=== PATIENT | female | born 1950 | race Caucasian/White ===

== ENCOUNTER 2021-11-20 23:05 | Inpatient (IN) | payer MEDICARE, OTHER, SELFPAY ==
[2021-11-20 23:07] VITALS: BP 120/77; PULSE 40; RESP 16; TEMP 36.4; O2SAT 90; BMI 24.9
--- NOTE | 2021-11-20 23:28 | EKG12_ITS ---
Test Reason : A-FIB Blood Pressure : / mmHG Vent. Rate : 094 BPM Atrial Rate : 094 BPM P-R Int : 136 ms QRS Dur : 078 ms QT Int : 340 ms P-R-T Axes : 039 006 023 degrees QTc Int : 425 ms Normal sinus rhythm Normal ECG Confirmed by FERNANDO MEJIA, DAVE ([id number]), news video editor TILA DUNCAN ([id number]) on 11/25/2021 11:16:14 AM Referred By: ANDMADELINE Confirmed By:JORGE KING MD
[2021-11-20 23:38] VITALS: BP 114/64; PULSE 121; RESP 21; O2SAT 93
[2021-11-20 23:40] VITALS: O2SAT 93
[2021-11-20 23:59] LABS: Absolute Lymphocyte Count 0.75 X10^3/uL (0.83-4.51); Basophil# 0.02 X10^3/uL; Basophil% 0.2 % (0-1); Eosinophil# 0.01 X10^3/uL; Eosinophils% 0.1 % (0-5); Hematocrit 27.6 % (37-47); Hemoglobin 9.6 g/dL (12.0-15.0); Lymphocyte # 0.75 X10^3/ul (0.83-4.51); Lymphocyte % 7.3 % (19-41); Mean Corp Hgb Conc 34.8 g/dL (32-36); Mean Corpuscular Hgb 29.1 pg (27.0-32.0); Mean Corpuscular Volume 83.6 fL (81-99); Mean Platelet Vol. 9.6 fl (6.2-12.0); Monocyte% 14.5 % (0-10); NRBC Flagged by Analyzer 0 % (0-5); Neutrophil # 7.98 X10^3/uL (2.7-7.7); Neutrophil % 77.3 % (47-70); Platelet Count 318 K/mm3 (150-450); RBC Distribution Width CV 15.3 % (11.6-14.6); RBC Distribution Width SD 46.2 fl (35.1-43.9); White Blood Count 10.3 K/mm3 (4.4-11.0)
[2021-11-21] VITALS (16 sets, daily range): BP systolic 113–134; BP diastolic 50–76; PULSE 76–112; RESP 16–23; TEMP 36.3–36.8; O2SAT 92–96; BMI 25.1
[2021-11-21] MEDS: 0.9% Normal Saline 1,000 ML 999 ML IV (00:09)
[2021-11-21] MEDS: dilTIAZem 25 MG/5 ML Vial 20 MG IV BOLUS (00:12)
[2021-11-21 00:16] LABS: BNP,B-Type NATRIURETIC PEPTIDE 388.5 pg/mL (0-100)
[2021-11-21 00:23] LABS: Anion Gap 11 (5-15); BUN 21 mg/dL (7-18); BUN/Creat Ratio 13.8 RATIO (10-20); Calcium,Total 8.7 mg/dL (8.5-10.1); Chloride 91 mmol/L (98-107); Creatinine, Serum 1.52 mg/dL (0.55-1.02); EST Glomerular Filtration Rate 36 mL/min (>60); Est Glom Filt Rate - Afr Amer 43 mL/min (>60); Estimated Creatinine Clearance 25.62 ml/min; Glucose 120 mg/dL (74-106); Magnesium 1.8 mg/dL (1.6-2.6); Potassium 3.7 mmol/L (3.5-5.1); Sodium Level 130 mmol/L (136-145); Thyroid Stim Hormone (TSH) 1.01 uIU/mL (0.358-3.74); Troponin-I HS 8 pg/mL (3.0-54.0)
[2021-11-21 00:24] LABS: Partial Thromboplast Time 23.5 Seconds (24.1-36.2); Prothrombin Time (Protime)PT. 12.4 SECONDS (11.7-14.9)
--- NOTE | 2021-11-21 00:25 | PCM.HP.STD ---
HPI - General General Date of Admission: 11/21/21 Date of Service: 11/21/21 Chief Complaint: Dyspnea, weight gain, palpitations, orthopnea. HPI Narrative The patient is a 71 y/o F w/ PMHx: CKD stage III unclear subtype with single kidney status, Asthma/COPD w/ Former tobacco use, PAF s/p remote RFA only recently given Rx for coumadin following w/ Cardiology in [place], HTN, HLD, Former tobacco use, Depression and Anxiety, Chronic migraines, GERD who presents to the [facility] ED on 11/21/21 with history of ongoing shortness of breath and palpitations worse over the last 1 to 2 weeks with orthopnea, lower extremity swelling and reported weight gain of 7 pounds over the last week with recent outpatient cardiology initiation of low-dose Lasix regimen however she continued to worsen noting the shortness of breath was worse with any exertion prompting ED evaluation. Patient reports that she knows immediately when she goes into A. fib and this has been intermittent recently going in and out. She also reports midsternal nonradiating chest pressure which occurs primarily with exertion. She reports that she has been following with cardiology in [place] but is highly interested in switching locally as she lives in [place]. Review of prior records were notable for 11/08/2021 hemoglobin 11.3, 11/08/2021 BUN/creatinine 17/1.34 with baseline prior noted 1.1-1.3 primarily, baseline hemoglobin 2017 noted to be 12. Work-up in the ED included T97.6, heart rate initially 40 however patient went into RVR with heart rate in the 1 20-1 30s but again converted upon evaluation, BP 120/77, respiratory rate 16, patient did decrease to 85 to 86% on room air while seated in bed with improvement to 93% on 2 L nasal cannula, CBC with WC 10.3, hemoglobin 9.6, platelets 318 with left shift and lymphopenia, BMP with sodium 130, chloride 91, BUN/creat 21/1.52, glucose 120, magnesium 1.8, troponin 8, BNP 388.5, TSH 1.01, coags pending, rapid COVID antigen pending, CTPA with right perihilar lung cancer with metastatic pleural effusion, local lymph node metastases and extensive liver metastases with postobstructive right lower lobe atelectasis and consolidation with no pulmonary embolus, EKG initially obtained upon presentation with sinus rhythm with no acute evidence of ischemia. In the ED patient ordered normal saline small bolus as well as diltiazem 20 mg IV x1. PFSH Medical History (Updated 11/21/21 @ 02:[address] Cherrie De La Rosa MD) Asthma Atrial fibrillation Chronic anemia Depression Former smoker GERD (gastroesophageal reflux disease) Migraines Home Medications acetaminophen 500 mg tablet 1,000 mg PO Q6H PRN Pain 11/20/21 [History Last Taken Unknown] alprazolam 0.5 mg tablet 0.5 tab PO TID PRN Anxiety 11/20/21 [History Last Taken Unknown] atorvastatin 10 mg tablet 10 tab PO DAILY 11/20/21 [History Last Taken Unknown] bisacodyl 5 mg tablet,delayed release (Dulcolax (bisacodyl)) 5 mg PO QHS PRN Constipation 11/20/21 [History Last Taken Unknown] diltiazem HCl 90 mg tablet 90 tab PO 4X/DAY 11/20/21 [History Last Taken Unknown] furosemide 20 mg tablet 20 tab PO DAILY PRN Edema 11/20/21 [History Last Taken Unknown] senna-docusate sodium tablet 2 tab PO DAILY 11/20/21 [History Last Taken Unknown] sertraline 100 mg tablet 100 tab PO DAILY 11/20/21 [History Last Taken Unknown] cetirizine 10 mg tablet 10 mg PO DAILY 11/21/21 [History Last Taken Unknown] cholecalciferol (vitamin D3) 125 mcg (5,000 unit) tablet 125 mcg PO DAILY 11/21/21 [History Last Taken Unknown] magnesium 250 mg tablet 250 mg PO DAILY 11/21/21 [History Last Taken Unknown] Allergy/AdvReac Type Severity Reaction Status Date / Time albuterol Allergy Other Verified 11/20/21 23:13 [From Proventil HFA] Family History (Updated 11/21/21 @ 00:[address] Cherrie De La Rosa MD) Mother CVA (cerebral vascular accident) Heart disease Hypertension HLD (hyperlipidemia) Father Asthma Hypertension PAF (paroxysmal atrial fibrillation) Surgical History (Updated 11/21/21 @ 00:[address] Cherrie De La Rosa MD) H/O kidney removal History of cardiac radiofrequency ablation Hx of tubal ligation Social History (Updated 11/21/21 @ 00:[address] Cherrie De La Rosa MD) household members: none Smoking Status: Former smoker how long ago did patient quit smoking: Quit 08/30/1983, smoked 1/2 ppd since age 27 until quit. alcohol intake: never substance use type: does not use ROS ROS Narrative Admission Review of Systems: CONSTITUTIONAL: No weight loss, fever, chills, + weakness or fatigue. HEENT: Eyes: No visual loss, blurred vision, double vision or yellow sclerae. Ears, Nose, Throat: No hearing loss, sneezing, congestion, runny nose or sore throat. SKIN: No rash or itching, lesions, wounds. CARDIOVASCULAR: + Edema, palpitations, orthopnea, no chest pain, chest pressure or chest discomfort, palpitations, syncopal events. RESPIRATORY: + shortness of breath, No cough or sputum, wheezing, hemoptysis. GASTROINTESTINAL: No anorexia, nausea, vomiting or diarrhea, abdominal pain, melena, BRBPR. GENITOURINARY: No dysuria, frequency, urgency or retention. NEUROLOGICAL: No headache, dizziness, syncope, paralysis, ataxia, numbness or tingling in the extremities, focal weakness, change in bowel or bladder control, seizure. MUSCULOSKELETAL: + muscle, back pain, joint pain or stiffness. HEMATOLOGIC: + anemia, bleeding or bruising. LYMPHATICS: No enlarged nodes. No history of splenectomy. PSYCHIATRIC: + history of depression or anxiety. ENDOCRINOLOGIC: No reports of sweating, cold or heat intolerance. No polyuria or polydipsia. ALLERGIES: + history of asthma, rhinitis. Vital Signs Vital Signs Vital Signs: 11/20/21 23:07 11/20/21 23:38 11/20/21 23:40 Temperature 97.6 F L Temperature Source Temporal Pulse Rate 40 L 121 H Respiratory Rate 16 21 H Respiratory Effort Short of Breath Labored Respiratory Pattern Tachypnea Blood Pressure 120/77 114/64 Blood Pressure Mean 91 80 Pulse Ox 90 93 Oxygen Delivery Method Room Air Nasal Cannula Nasal Cannula Oxygen Flow Rate (L/min) 2 Weight Weight: 132 lb Body Mass Index (BMI) 24.9 Physical Exam Narrative Physical Examination: General: Awake, alert, oriented x 3 and cooperative, seated upright in the ED bed in no apparent distress, fatigued appearing, notes improved with oxygen supplementation. Skin: Normal color, normal turgor, no icterus, no cyanosis. HEENT: AT/NC, EOMI, PERRLA, mildly dry MM, no carotid bruits or JVD noted. Lungs: Diffusely diminished, greater bases, notes feeling improved with oxygen supplementation, decrease now to 3 L, no evidence of any further distress, no rales or rhonchi, occasional end expiratory wheeze. Heart: Tachycardic, regular rhythm; no gallop, rub audible. Abdomen: Soft, NTTP, ND, distant normal BS, no HSM. Extremities: No cyanosis, no clubbing, no obvious edema to lower extremities, resolved likely with recent Lasix regimen. Neurological: Patient awake, alert, oriented as noted, cognitive function intact; pupils equally reactive to light and accommodation, cranial nerves II-XII grossly normal, moving all 4 extremities, no focal deficits, strength moderately to severely global decreased secondary to acute presentation. Psychiatric: Affect appears fatigued, no acute evidence of depressive or anxiety feelings. Results Lab / Micro Data Result Diagrams: 11/20/21 23:28 11/20/21 23:28 Labs: Laboratory Results - last 24 hr 11/20/21 23:28: WBC 10.3, RBC 3.30 L, Hgb 9.6 L, Hct 27.6 L, MCV 83.6, MCH 29.1, MCHC 34.8, RDW Std Deviation 46.2 H, RDW Coeff of Flaco 15.3 H, Plt Count 318, MPV 9.6, Immature Gran % (Auto) 0.600, Neut % (Auto) 77.3 H, Lymph % (Auto) 7.3 L, [place] % (Auto) 14.5 H, Eos % (Auto) 0.1, Baso % (Auto) 0.2, Absolute Neuts (auto) 8.0 H, Absolute Lymphs (auto) 0.75 L, Nucleated RBC % 0 11/20/21 23:28: Sodium 130 L, Potassium 3.7, Chloride 91 L, Carbon Dioxide 28.0, Anion Gap 11, BUN 21 H, Creatinine 1.52 H, Estim Creat Clear Calc 25.62, Est GFR (MDRD) Af Amer 43 L, Est GFR (MDRD) Non-Af 36 L, BUN/Creatinine Ratio 13.8, Glucose 120 H, Calcium 8.7, Magnesium 1.8, Troponin I High Sens 8, TSH 1.01 11/20/21 23:28: B-Natriuretic Peptide 388.5 H Assessment & Plan Assessment/Plan (1) PAF (paroxysmal atrial fibrillation): (2) Metastatic lung cancer (metastasis from lung to other site): (3) Acute on chronic anemia: PLAN: Plan The patient is a 71 y/o F w/ PMHx: CKD stage III unclear subtype with single kidney status, Asthma/COPD w/ Former tobacco use, PAF s/p remote RFA only recently given Rx for coumadin following w/ Cardiology in [place], HTN, HLD, Former tobacco use, Depression and Anxiety, Chronic migraines, GERD who presents to the [facility] ED on 11/21/21 with history of ongoing shortness of breath and palpitations worse over the last 1 to 2 weeks with orthopnea, lower extremity swelling and reported weight gain of 7 pounds over the last week with recent outpatient cardiology initiation of low-dose Lasix regimen however she continued to worsen noting the shortness of breath was worse with any exertion prompting ED evaluation. #1. Paroxsymal atrial fibrillation with episodes of RVR w/ suspected overload associated with recurrent RVR: Episodes in the ED w/ atrial fibrillation w/ RVR. Patient administered cardizem bolus in ED. Patient in and out of atrial fibrillation while in the ED. Will admit to PCU, maintain on telemetry, obtain cardiac enzyme serial set, mag normal level, obtain ECHO, obtain TSH level. CHADs scoring appropriate for anticoagulation start however given hemoglobin decreased from 11.3-9.6 and reported hemorrhoidal bleeding per patient will hold on initiation but given #3 high risk for VTE in addition to CVA risk with PAF thus once able would start, guaiac pending, trend H&H's. We will continue patient home diltiazem regimen and overlap with dose now however low threshold to utilize IV Cardizem drip if necessary. Given patient preference for transition to [place] cardiology group will request cardiology involvement in AM. #2. Acute on Chronic anemia, Possibly secondary to Hemorrhoidal bleeding versus #3: Most recent hemoglobin prior 11/09/2019 211.3, 2017 level primarily 12, current presentation 11/21/2021 hemoglobin 9.6, denies any melanotic stools but does admit to hemorrhoidal bleeding more pronounced over the last 2 days, will hold off on any anticoagulation as noted above, trend CBC, obtain guaiac and if appropriate request surgery intervention for evaluation of hemorrhoids versus GI. #3. Acute hypoxia with dyspnea sensation secondary to right perihilar lung cancer with metastatic pleural effusion, local lymph node metastases and extensive liver metastases with postobstructive right lower lobe atelectasis and consolidation: Unfortunately extensive presentation, history remotely of smoking is noted, will request pulmonary consultation as well as early oncology involvement. Will maintain on oxygen with wean as tolerated to room air, ATC budesonide, PRN albuterol, given post-obstructive findings to be cautious will maintain on IV Rocephin and Azithromycin but lower suspicion for infection with de-escalation off as able, HOB, IS parameters w/ pending procalcitonin, sputum cultures and urine antigens. #4. Chest Pain, likely primarily secondary to #3: EKG in ED sinus rhythm with no acute evidence of ischemia however patient on telemetry monitoring in the ED has been going in and out of atrial fibrillation, initial cardiac troponin 8. Will place on a monitored bed to assure no acute myocardial infarction with serial cardiac enzymes and EKGs. Magnesium 1.8. FLP in AM. We will continue baby aspirin but hold on Coumadin therapy given #2 with close hemoglobin trending. NG, morphine. #5. Chronic Kidney Disease Stage III, unclear subtype with single kidney status with mild renal insufficiency: Admission BUN/Cr 21/1.52, baseline renal function 1.1-1.3 with most recent 11/08/2021 BUN/creatinine 17/1.34, repeat BMP in AM and if renal function worsens further would hold any nephrotoxic regimen. #6. Chronic constipation: Given hemorrhoidal bleeding we will continue patient aggressive bowel regimen which includes Dulcolax as well as senna docusate regimen. This likely has been contributing. #7. Chronic asthma/COPD with allergic rhinitis: Not on any routine inhalers per current list but on prior review of records patient was on chronic inhalers, given hypoxia will place on ATC budesonide therapy with parent albuterol, encourage head of bed and I-S. We will continue home cetirizine regimen. #8. Anxiety and depression: We will continue patient home sertraline and alprazolam regimen. #9. Hypertension: Continue home regimen including diltiazem, Lasix, PRN hydralazine. #10. Hyperlipidemia: Continue home statin regimen. AM FLP. #11. Former tobacco use: Encourage continued tobacco cessation. #12. GERD: We will place on PPI. #13. DVT prophylaxis: SCDs, hold on chemoprophylaxis given #2. #14. CODE status: Patient does not have healthcare power of deputy prosecuting attorney nor living will set up but notes she is interested. Discussed CODE status at length including difference between FULL code, DNR-CCA and DNR-CC status. Following discussions about the differences in these status, requested DNR CCA-no intubation status given recent CTPA findings. She is also not sure if she will pursue treatments but is interested in discussing these findings and potential further evaluation with oncology and pulmonary medicine. Advanced Care Planning Face to Face Time: 16 minutes. Charges/Coding Visit Charges Inpatient E&M: 90572 Init Hosp L3 Procedures Hospitalists Procedures: 70597 Advncd Care Plan 30 Min
[2021-11-21] MEDS: Ceftriaxone 1 GM/50 ML BAG IV (01:58)
--- NOTE | 2021-11-21 02:45 | ECHOD_ITS ---
Reason For Study: PAF Procedure This was a 2D Doppler, Color Flow transthoracic echocardiogram. Exam performed portable in patient room. Left Ventricle The estimated ejection fraction is 70 %. No evidence for diastolic dysfunction. No regional wall motion abnormalities noted. Right Ventricle Normal RV size. Normal systolic function. Atria The left atrium is mildly enlarged. Normal right atrium. No doppler evidence for ASD. Mitral Valve There is no mitral valve stenosis. No mitral valve insufficiency. Tricuspid Valve There is no tricuspid stenosis. Trivial tricuspid valve insufficiency. Pulmonary artery systolic pressure is 30 mmHg. Aortic Valve Trisinus/trileaflet aortic valve. There is no aortic stenosis. No aortic valve insufficiency. Pulmonic Valve There is no pulmonic valvular stenosis. No pulmonic valve insufficiency. Great Vessels Normal aortic root. Pericardium/Pleural No pericardial effusion. MMode/2D Measurements & Calculations LVIDd: 4.6 cm IVSd: 0.73 cm Ao root diam: 3.2 cm LVIDs: 2.8 cm LVPWd: 0.90 cm RVDd: 3.7 cm FS: 39.5 % LAV(MOD-bp): 58.2 ml LA A4 area: 13.9 cm2 LA dimension(2D): 3.5 cm LAV(MOD-bp) Indexed: 36.6 ml/m2 LAV(MOD-sp2): 54.8 ml LAV(MOD-sp4): 40.7 ml Time Measurements MV dec time: 0.27 sec Doppler Measurements & Calculations MV E max dagoberto: 84.6 cm/sec Lat Peak E' Dagoberto: 13.5 cm/sec Med Peak E' Dagoberto: 12.7 cm/sec MV A max dagoberto: 96.0 cm/sec E/E' lat: 6.3 E/E' med: 6.7 MV E/A: 0.88 MV dec slope: 282.5 cm/sec2 Ao V2 max: 121.6 cm/sec LV V1 max: 90.7 cm/sec Ao max P.9 mmHg LV V1 max P.3 mmHg Ao V2 mean: 91.8 cm/sec LV V1 mean P.2 mmHg Ao mean P.7 mmHg LV V1 mean: 70.7 cm/sec Ao V2 VTI: 26.0 cm LV V1 VTI: 21.5 cm PA V2 max: 89.8 cm/sec TR max dagoberto: 260.5 cm/sec TR max P.1 mmHg ECHO/Echo Complete Interpretation Summary The estimated ejection fraction is 70 %. No evidence for diastolic dysfunction. The left atrium is mildly enlarged. Ordering Physician: White^Cherrie^L^.^ Referring Physician: Conner Daley Performed By: Thelma Cross, FABIAN, RVT
[2021-11-21] MEDS: ALPRAZolam 0.5 MG Tablet PO ×2 (03:35→16:00)
[2021-11-21] MEDS: Temazepam 15 MG Capsule PO (03:35)
[2021-11-21 03:37] LABS: Absolute Lymphocyte Count 0.66 X10^3/uL (0.83-4.51); Absolute Neutrophil Count 7.5 X10^3/uL (2.0-7.7); Basophil# 0.01 X10^3/uL; Basophil% 0.1 % (0-1); Eosinophil# 0.02 X10^3/uL; Eosinophils% 0.2 % (0-5); Hematocrit 28.7 % (37-47); Hemoglobin 9.5 g/dL (12.0-15.0); Lymphocyte # 0.66 X10^3/ul (0.83-4.51); Lymphocyte % 6.8 % (19-41); Mean Corp Hgb Conc 33.1 g/dL (32-36); Mean Corpuscular Hgb 28.1 pg (27.0-32.0); Mean Corpuscular Volume 84.9 fL (81-99); Mean Platelet Vol. 9.1 fl (6.2-12.0); Monocyte# 1.39 X10^3/uL; Monocyte% 14.4 % (0-10); NRBC Flagged by Analyzer 0 % (0-5); Neutrophil # 7.52 X10^3/uL (2.7-7.7); Neutrophil % 78.1 % (47-70); Platelet Count 288 K/mm3 (150-450); RBC Distribution Width CV 15.4 % (11.6-14.6); RBC Distribution Width SD 47.6 fl (35.1-43.9); Red Blood Count 3.38 M/mm3 (4.2-5.4); White Blood Count 9.6 K/mm3 (4.4-11.0)
[2021-11-21 03:56] LABS: Troponin-I HS 8 pg/mL (3.0-54.0)
--- NOTE | 2021-11-21 05:52 | EX.ED.DYSGE1 ---
HPI History of Present Illness Chief Complaint: Shortness of Breath Narrative Narrative: Patient is a 71-year-old female with past medical history of paroxysmal atrial fibrillation. She states that she is also had a DVT in her leg in the past. She reports that she has been having increased shortness of breath as well as weakness/fatigue and noted that she became hypoxic with a pulse ox trending down into the 80s today at home. She denies any history of smoking or lung disorder or need for supplemental oxygen. She states that she was on a blood thinner when she had her DVT but that its been years ago. With her paroxysmal A. fib the only medication she takes is aspirin for anticoagulation and tries to control her rhythm and rate with Cardizem. The patient reports that she has been taking her medications as directed but has had to stop the aspirin as she is scheduled for cardiac ablation in the next week. She reports that with her increased shortness of breath and the hypoxic event that occurred today when she went to go outside she was concerned that there is more going on than atrial fibrillation and she comes in for evaluation [facility] Medical History (Updated 11/21/21 @ 05:[address] Gabriel Mark, ) Asthma Atrial fibrillation Chronic anemia Depression Former smoker GERD (gastroesophageal reflux disease) Migraines Home Medications acetaminophen 500 mg tablet 1,000 mg PO Q6H PRN Pain 11/20/21 [History Last Taken Unknown] alprazolam 0.5 mg tablet 0.5 tab PO TID PRN Anxiety 11/20/21 [History Last Taken Unknown] atorvastatin 10 mg tablet 10 tab PO DAILY 11/20/21 [History Last Taken Unknown] bisacodyl 5 mg tablet,delayed release (Dulcolax (bisacodyl)) 5 mg PO QHS PRN Constipation 11/20/21 [History Last Taken Unknown] diltiazem HCl 90 mg tablet 90 tab PO 4X/DAY 11/20/21 [History Last Taken Unknown] furosemide 20 mg tablet 20 tab PO DAILY PRN Edema 11/20/21 [History Last Taken Unknown] senna-docusate sodium tablet 2 tab PO DAILY 11/20/21 [History Last Taken Unknown] sertraline 100 mg tablet 100 tab PO DAILY 11/20/21 [History Last Taken Unknown] cetirizine 10 mg tablet 10 mg PO DAILY 11/21/21 [History Last Taken Unknown] cholecalciferol (vitamin D3) 125 mcg (5,000 unit) tablet 125 mcg PO DAILY 11/21/21 [History Last Taken Unknown] magnesium 250 mg tablet 250 mg PO DAILY 11/21/21 [History Last Taken Unknown] Allergy/AdvReac Type Severity Reaction Status Date / Time albuterol Allergy Other Verified 11/20/21 23:13 [From Proventil HFA] Family History (Updated 11/21/21 @ 00:[address] Cherrie De La Rosa MD) Mother CVA (cerebral vascular accident) Heart disease Hypertension HLD (hyperlipidemia) Father Asthma Hypertension PAF (paroxysmal atrial fibrillation) Surgical History (Updated 11/21/21 @ 00:[address] Cherrie De La Rosa MD) H/O kidney removal History of cardiac radiofrequency ablation Hx of tubal ligation Social History (Updated 11/21/21 @ 00:[address] Cherrie De La Rosa MD) household members: none Smoking Status: Former smoker how long ago did patient quit smoking: Quit 08/30/1983, smoked 1/2 ppd since age 27 until quit. alcohol intake: never substance use type: does not use ROS ROS ED Constitutional Constitutional ED: Denies chills or fever(s) ENT ENT ED: Denies sore throat Cardiovascular Cardiovascular: Reports palpitations and racing heartbeat; Denies chest pain Respiratory/Chest Respiratory/Chest: Reports dyspnea; Denies cough Gastrointestinal Gastrointestinal: Denies abdominal pain, diarrhea, nausea or vomiting Genitourinary Genitourinary ED: Denies dysuria Musculoskeletal Musculoskeletal: Denies myalgias Integumentary Denies rash Neurologic Neurologic: Reports weakness; Denies headache(s) Hematologic/Lymphatic Hematologic/Lymphatic: Denies easy bleeding or easy bruising EXAM Physical Exam Const Vital Signs: 11/20/21 23:07 11/20/21 23:38 11/20/21 23:40 Temperature 97.6 F L Temperature Source Temporal Pulse Rate 40 L 121 H Respiratory Rate 16 21 H Respiratory Effort Short of Breath Labored Respiratory Pattern Tachypnea Blood Pressure 120/77 114/64 Blood Pressure Mean 91 80 Pulse Ox 90 93 Oxygen Delivery Method Room Air Nasal Cannula Nasal Cannula Oxygen Flow Rate (L/min) 2 Positive well nourished and well developed General Appearance ED: well developed HEENT Reports moist mucous membranes HEENT Narrative: No tongue or lip swelling no oral lesions no airway edema or compromise Eyes PERRL and EOMs intact bilaterally Neck supple and no JVD Chest Wall palpation of chest normal Resp normal respiratory effort Resp Narrative: Breath sounds are diminished throughout but overall clear to auscultation without nasal flaring retractions tachypnea or accessory muscle use Cardio Rate: other Other Details: Irregularly irregular rhythm with tachycardic rate consistent with her history of paroxysmal atrial fibrillation GI normal to inspection, nondistended, normoactive bowel sounds, non-tender and non-distended GI Narrative: No voluntary guarding or rigidity no pulsatile mass Auscultation: normoactive bowel sounds Palpation: soft Extremity Extremity Narrative: Trace pitting edema to the bilateral lower extremities that is equal and symmetric with negative Homans' sign Neuro oriented x3 and CN's II-XII intact bilaterally Sensorium / Orientation: alert Psych mental status grossly normal Skin no rashes or lesions noted MDM MDM MDM Narrative Medical decision making narrative: Patient presented to the ER satting approximately 88% on room air. Her heart rhythm was consistently changing between A. fib with RVR as well as sinus rhythm. With her history of A. fib and no true anticoagulation and now shortness of breath there is concern she may have developed a pulmonary embolus. Secondary to this basic blood work and a CT scan were ordered. Labs showed chronic findings without acute changes. Her CT scan however showed metastatic cancer with obstructive atelectasis and consolidation. She does not have a fever or white count and therefore I feel the consolidation in the lungs is related to the atelectasis and compressing cancer. However to order ensure we are not missing infection patient will be started on Rocephin and Zithromax. At this time she does not have signs of cardiac damage or PE but with the metastatic cancer and hypoxia she needs to remain in the hospital for further treatment of these findings and need for supplemental oxygen Lab Data Attestation: I reviewed the patient's lab results. Labs: Laboratory Results - last 24 hr 11/20/21 11/20/21 11/20/21 23:28 23:28 23:28 WBC 10.3 RBC 3.30 L Hgb 9.6 L Hct 27.6 L MCV 83.6 MCH 29.1 MCHC 34.8 RDW Std Deviation 46.2 H RDW Coeff of Flaco 15.3 H Plt Count 318 MPV 9.6 Immature Gran % (Auto) 0.600 Neut % (Auto) 77.3 H Lymph % (Auto) 7.3 L [place] % (Auto) 14.5 H Eos % (Auto) 0.1 Baso % (Auto) 0.2 Absolute Neuts (auto) 8.0 H Absolute Lymphs (auto) 0.75 L Nucleated RBC % 0 PT 12.4 INR 1.0 APTT 23.5 L Sodium 130 L Potassium 3.7 Chloride 91 L Carbon Dioxide 28.0 Anion Gap 11 BUN 21 H Creatinine 1.52 H Estim Creat Clear Calc 25.62 Est GFR (MDRD) Af Amer 43 L Est GFR (MDRD) Non-Af 36 L BUN/Creatinine Ratio 13.8 Glucose 120 H Calcium 8.7 Magnesium 1.8 Troponin I High Sens 8 B-Natriuretic Peptide TSH 1.01 11/20/21 23:28 WBC RBC Hgb Hct MCV MCH MCHC RDW Std Deviation RDW Coeff of Flcao Plt Count MPV Immature Gran % (Auto) Neut % (Auto) Lymph % (Auto) [place] % (Auto) Eos % (Auto) Baso % (Auto) Absolute Neuts (auto) Absolute Lymphs (auto) Nucleated RBC % PT INR APTT Sodium Potassium Chloride Carbon Dioxide Anion Gap BUN Creatinine Estim Creat Clear Calc Est GFR (MDRD) Af Amer Est GFR (MDRD) Non-Af BUN/Creatinine Ratio Glucose Calcium Magnesium Troponin I High Sens B-Natriuretic Peptide 388.5 H TSH Discharge Plan Dx/Rx/DC Orders Clinical Impression: PAF (paroxysmal atrial fibrillation), Metastatic lung cancer (metastasis from lung to other site), Acute on chronic anemia, Hypoxia Disposition Disposition: Acute Care [facility]
[2021-11-21] MEDS: dilTIAZem 30 MG Tablet 90 MG PO ×3 (06:06→17:45)
[2021-11-21] MEDS: Acetaminophen 325 MG Tablet 650 MG PO (06:08)
[2021-11-21] MEDS: Budesonide Respules 0.5 MG/2 ML AMPUL.NEB. INHALATION ×2 (06:50→19:22)
[2021-11-21 07:29] LABS: ALB/GLOB Ratio 0.8 RATIO (0.9-2.4); AST(SGOT) 144 U/L (15-37); Alanine Aminotransfer ALT/SGPT 101 U/L (13-56); Albumin, Serum 2.7 g/dL (3.2-5.0); Alkaline Phosphatase 262 U/L (45-117); Anion Gap 9 (5-15); BUN 20 mg/dL (7-18); BUN/Creat Ratio 15.2 RATIO (10-20); Calcium,Total 8.2 mg/dL (8.5-10.1); Chloride 92 mmol/L (98-107); Creatinine, Serum 1.32 mg/dL (0.55-1.02); EST Glomerular Filtration Rate 42 mL/min (>60); Est Glom Filt Rate - Afr Amer 51 mL/min (>60); Globulin 3.2 g/dL (2.2-4.2); Glucose 108 mg/dL (74-106); Potassium 3.7 mmol/L (3.5-5.1); Protein, Total 5.9 g/dL (6.4-8.2); Sodium Level 129 mmol/L (136-145); Thyroid Stim Hormone (TSH) 0.59 uIU/mL (0.358-3.74); Troponin-I HS 9 pg/mL (3.0-54.0)
[2021-11-21] MEDS: Magnesium Chloride 64 MG Delay Rel.Tablet PO (09:14)
[2021-11-21] MEDS: Sertraline 100 MG Tablet PO (09:14)
[2021-11-21] MEDS: Cholecalciferol (Vit D3) 125 MCG CAPSULE (5,000 UNITS) PO (09:14)
[2021-11-21] MEDS: Aspirin 81 MG TAB.CHEW PO (09:14)
[2021-11-21] MEDS: Loratadine 10 MG Tablet PO (09:14)
[2021-11-21] MEDS: Pantoprazole Sodium 40 MG Tablet PO ×2 (09:14→22:10)
--- NOTE | 2021-11-21 10:24 | CON.PCM.CC_ITS ---
Assessment & Plan Assessment/Plan (1) Lung mass: PLAN: Plan RECOMMENDATIONS: 1. Continue antimicrobials. 2. Wean supplemental oxygen for saturations greater than 90%. 3. Obtain CT abdomen/pelvis to evaluate extent of intra-abdominal metastatic disease. 4. Consider CT biopsy of one of the metastatic lesions. 5. Encourage incentive spirometer use and mobilize patient as tolerated. IMPRESSIONS: 1. Right perihilar lung mass with probable postobstructive pneumonia The patient's CT chest demonstrated a right hilar lung mass which appears to be causing narrowing/occlusion of the right middle and lower lobe with what is lik con a component of postobstructive pneumonia and atelectasis. In addition, multiple hypoattenuating lesions were noted throughout the liver, concerning for metastatic disease. At this time, I would recommend that we obtain a dedicated CT abdomen/pelvis to evaluate the extent of potential intra-abdominal metastatic disease. Depending on the results of CT imaging, arrangements can be made with radiology to pursue CT-guided biopsy. It would likely be reasonable to go after the liver lesions as this would not only establish a diagnosis but a stage for the patient as well. In the interim, continue to wean supplemental oxygen as tolerated for saturations at or above 90%. Continue antimicrobials as well. This note was generated with [employer] dictation software. It may contain incorrect words, spelling, and punctuation that were not noted in checking the note before signing. HPI Consult Data Date of Consult: 11/22/21 HPI Narrative Reason for Consultation: Lung mass HPI Narrative: The patient is a 71-year-old female, with a history as outlined below, who presented to the emergency department on November 21 with progressive shortness of breath and hypoxemia. The patient does not regularly utilize supplemental oxyge n at her baseline. She denied a history of venous thromboembolic disease. She has a very remote smoking history, having quit completely 38 years ago. Her weight and appetite has been relatively stable. On presentation to the emergency department, the patient was noted to be afebrile but was noted bili tachycardic and tachypneic. She was maintaining appropriate oxygen saturations on 2 L/min via nasal cannula. Initial laboratory evaluation revealed no evidence of a leukocytosis. Chemistry profile was notable for a sodium of 130, chloride of 91 and creatinine of 1.52. BNP was elevated at 388 with a procalcitonin of 19.6. A CTA chest was obtained which demonstrated no evidence of pulmonary embolism. Bulky right-sided hilar adenopathy along with a large 8 cm perihilar lung mass was noted, which also appear to be obstructing the right lower lobe bronchus. Incidental note was made of extensive liver metastatic lesions. Surface echocardiogram completed today demonstrated an ejection fraction of 70%. Pulmonary artery systolic pressure was estimated to be 30 mmHg. [facility] Medical History (Updated 11/21/21 @ 17:[address] Marcello Carter MD) Asthma Atrial fibrillation Chronic anemia Depression Former smoker GERD (gastroesophageal reflux disease) Migraines Home Medications acetaminophen 500 mg tablet 1,000 mg PO Q6H PRN Pain 11/20/21 [History Last Taken Unknown] alprazolam 0.5 mg tablet 0.5 tab PO TID PRN Anxiety 11/20/21 [History Last Taken Unknown] atorvastatin 10 mg tablet 10 tab PO DAILY 11/20/21 [History Last Taken Unknown] bisacodyl 5 mg tablet,delayed release (Dulcolax (bisacodyl)) 5 mg PO QHS PRN Constipation 11/20/21 [History Last Taken Unknown] diltiazem HCl 90 mg tablet 90 tab PO 4X/DAY 11/20/21 [History Last Taken Unknown] furosemide 20 mg tablet 20 tab PO DAILY PRN Edema 11/20/21 [History Last Taken Unknown] senna-docusate sodium tablet 2 tab PO DAILY 11/20/21 [History Last Taken Unknown] sertraline 100 mg tablet 100 tab PO DAILY 11/20/21 [History Last Taken Unknown] cetirizine 10 mg tablet 10 mg PO DAILY 11/21/21 [History Last Taken Unknown] cholecalciferol (vitamin D3) 125 mcg (5,000 unit) tablet 125 mcg PO DAILY 11/21/21 [History Last Taken Unknown] magnesium 250 mg tablet 250 mg PO DAILY 11/21/21 [History Last Taken Unknown] Allergy/AdvReac Type Severity Reaction Status Date / Time albuterol Allergy Other Verified 11/20/21 23:13 [[facility] HFA] Family History (Updated 11/21/21 @ 00:[address] Cherrie De La Rosa MD) Mother CVA (cerebral vascular accident) Heart disease Hypertension HLD (hyperlipidemia) Father Asthma Hypertension PAF (paroxysmal atrial fibrillation) Surgical History (Updated 11/21/21 @ 00:[address] Cherrie De La Rosa MD) H/O kidney removal History of cardiac radiofrequency ablation Hx of tubal ligation Social History (Updated 11/21/21 @ 00:[address] Cherrie De La Rosa MD) household members: none Smoking Status: Former smoker how long ago did patient quit smoking: Quit 08/30/1983, smoked 1/2 ppd since age 27 until quit. alcohol intake: never substance use type: does not use ROS Constitutional Constitutional: Reports fatigue; Denies body ache(s), chills or fever(s) Eyes Eyes: Denies blurry vision or change in vision ENT HEENT: Denies dizziness, dysphagia, epistaxis or headache(s) Cardiovascular Cardiovascular: Reports dyspnea; Denies chest pain, claudication or dizziness Respiratory/Chest Respiratory/Chest: Reports dyspnea Gastrointestinal Gastrointestinal: Denies abdominal pain, diarrhea, nausea or vomiting Genitourinary Genitourinary: Denies difficulty urinating Musculoskeletal Musculoskeletal: Denies arthralgias or back pain Integumentary Integumentary: Denies lesions, rash or skin ulcer Neurologic Neurologic: Denies abnormal gait or abnormal speech Psychiatric Psychiatric: Denies anxiety Endocrine Endocrinology: Reports fatigue Hematologic/Lymphatic Hematologic/Lymphatic: Denies easy bleeding or easy bruising Physical Exam Const alert and no apparent distress General Appearance: cooperative HEENT normocephalic, head/scalp atraumatic and moist oral mucous membranes Eyes PERRL, EOMs intact bilaterally and conjunctivae normal Neck supple General: trachea midline Chest inspection of chest normal Resp normal respiratory effort Auscultation: diminished lung sounds Cardio regular rate and regular rhythm GI normal to inspection, nondistended, normoactive bowel sounds Extremity no clubbing, cyanosis or edema Skin no rashes or lesions noted Neuro oriented x3, CN's II-XII intact bilaterally and moves all extremities Psych cooperative and affect normal Lab / Micro Data Result Diagrams: 11/22/21 06:30 11/22/21 06:30 Labs: Laboratory Results - last 24 hr 11/20/21 23:28: WBC 10.3, RBC 3.30 L, Hgb 9.6 L, Hct 27.6 L, MCV 83.6, MCH 29.1, MCHC 34.8, RDW Std Deviation 46.2 H, RDW Coeff of Flaco 15.3 H, Plt Count 318, MPV 9.6, Immature Gran % (Auto) 0.600, Neut % (Auto) 77.3 H, Lymph % (Auto) 7.3 L, [place] % (Auto) 14.5 H, Eos % (Auto) 0.1, Baso % (Auto) 0.2, Absolute Neuts (auto) 8.0 H, Absolute Lymphs (auto) 0.75 L, Nucleated RBC % 0 11/20/21 23:28: PT 12.4, INR 1.0, APTT 23.5 L 11/20/21 23:28: Sodium 130 L, Potassium 3.7, Chloride 91 L, Carbon Dioxide 28.0, Anion Gap 11, BUN 21 H, Creatinine 1.52 H, Estim Creat Clear Calc 25.62, Est GFR (MDRD) Af Amer 43 L, Est GFR (MDRD) Non-Af 36 L, BUN/Creatinine Ratio 13.8, Glucose 120 H, Calcium 8.7, Magnesium 1.8, Troponin I High Sens 8, TSH 1.01 11/20/21 23:28: B-Natriuretic Peptide 388.5 H 11/21/21 01:46: Procalcitonin 19.60 H 11/21/21 03:30: WBC 9.6, RBC 3.38 L, Hgb 9.5 L, Hct 28.7 L, MCV 84.9, MCH 28.1, MCHC 33.1, RDW Std Deviation 47.6 H, RDW Coeff of Flaco 15.4 H, Plt Count 288, MPV 9.1, Immature Gran % (Auto) 0.400, Neut % (Auto) 78.1 H, Lymph % (Auto) 6.8 L, [place] % (Auto) 14.4 H, Eos % (Auto) 0.2, Baso % (Auto) 0.1, Absolute Neuts (auto) 7.5, Absolute Lymphs (auto) 0.66 L, Nucleated RBC % 0 11/21/21 03:30: Troponin I High Sens 8 11/21/21 06:49: Sodium 129 L, Potassium 3.7, Chloride 92 L, Carbon Dioxide 28.0, Anion Gap 9, BUN 20 H, Creatinine 1.32 H, Estim Creat Clear Calc 29.50, Est GFR (MDRD) Af Amer 51 L, Est GFR (MDRD) Non-Af 42 L, BUN/Creatinine Ratio 15.2, Glucose 108 H, Calcium 8.2 L, Total Bilirubin 0.30, AST 144 H, ALT 101 H, Alkaline Phosphatase 262 H, Troponin I High Sens 9, Total Protein 5.9 L, Albumin 2.7 L, Globulin 3.2, Albumin/Globulin Ratio 0.8 L, TSH 0.59 Micro: Microbiology 11/21/21 04:45 Urine, Clean Catch Legionella Antigen - Final 11/20/21 20:10 Nasal Secretion SARS-CoV-2 & FLU Antigen (Rapid) - Final Radiology Impression Chest CTA 11/21/21 23:50 IMPRESSION: 1. Right perihilar lung cancer with metastatic pleural effusion, local lymph node metastases, and extensive liver metastases. There is postobstructive right lower lobe atelectasis and consolidation. 2. No finding of pulmonary embolus. Electronically Signed: Anselmo Langford MD at 1:05 EDT , Charges/Coding Visit Charges Inpatient E&M: 21460 Init Hosp L3
[2021-11-21] MEDS: oxyCODONE 5 MG Tablet PO ×2 (10:46→20:16)
--- NOTE | 2021-11-21 10:50 | CASEMGMT ---
RN MARLEY Face to Face with patient for initial transition planning/care coordination assessment. RN CM introduced self and role at [facility]. Patient lying in bed, alert and oriented. Patient willing to participate in assessment and is able to answer all questions appropriately. Care providers, pharmacy, and demographics verified. Patient wishes to discharge home, denies need for home health at this time. Patient states she has no further needs or concerns at this time. CM to follow for discharge planning needs that may arise. PCP: Thuy Specialists: none Preferred Pharmacy: [facility] [place] Insurance: [employer] Prescription Benefit: yes Living Will/HPOA: none, patient requesting to complete, SW updated LNOK: DIL, friend Living Arrangements: Patient lives alone in a first floor apartment in senior independent living with no steps to enter. Patient state she is independent at home. Transportation: self, friend [place] DME/HHC: Patient states she has grab bars, nebulizer, pulse ox and call lights at home. Patient denies previous HHC. Will monitor patient for home oxygen at discharge. No preferences for DME. Disposition Plan: Patient to discharge home with family support and follow-up plans in place. Edna GEORGE, RN, CM
--- NOTE | 2021-11-21 12:05 | CT_ITS ---
STUDY: CT ABDOMEN AND PELVIS WITH CONTRAST REASON FOR EXAM: Female, 71 years old. Eval for metastatic disease RADIATION DOSAGE (If Supplied By Facility): CTDIvol = ( 12.45 ) mGy, DLP = ( 679.87 ) mGycm TECHNIQUE: Transaxial images were obtained from the dome of the diaphragm to the symphysis pubis with oral contrast. Oral and IV Gastrografin and 75mL Isovue-300 was administered. Sagittal and coronal images were reconstructed. Individualized dose optimization techniques were used for this CT. COMPARISON: None. FINDINGS: Dense consolidation of the right lower lobe. Known right hilar mass with postobstructive atelectasis and consolidation. Tiny bilateral pleural effusions. Coronary artery calcification. Diffuse hepatomegaly. Multiple scattered hypodense nodules in both lobes of the liver in keeping with diffuse metastatic deposits. Tiny densities are seen within the gallbladder lumen suggestive of either sludge or tiny gallstones. Normal spleen. Normal pancreas. Normal bilateral adrenal glands. Normal right kidney. Normal left kidney. There is a small hiatal hernia. Normal small intestine. There are multiple colonic diverticula consistent with diverticulosis. The appendix is visualized and appears normal. There is scattered atherosclerotic calcification of the abdominal aorta, without a demonstrated aneurysm. Normal inferior vena cava. Normal retroperitoneum. Normal urinary bladder. The left ovary measures 3.2 cm x 2.4 cm. Normal abdominal wall. Disc space narrowing and disc degeneration at the L5-S1 level. There is a 1.6 cm lucency in the posterior superior aspect of the L2 vertebrae. CT/Abdomen/Pelvis WITH Contrast IMPRESSION: Diffuse hepatomegaly with multiple hypodense solid nodules scattered throughout both lobes of the liver in keeping with diffuse metastasis. Possible small gallstones. Dense consolidation of the right lower lobe with tiny bilateral pleural effusions. Electronically Signed: Rajesh Salinas MD at 15:18 EDT ,
--- NOTE | 2021-11-21 13:30 | PN.HOSP_ITS ---
Documented by User: Tata Fuentes [employer] CELL CLEANER, [employer]ANER-C 11/21/21 13:42 Subjective Subjective Patient seen and examined. Reports headache. Intermittent nonproductive/dry cough. Denies fever, chills. Continues to have dyspnea, worse with movement. Objective Data Objective Data Vital Signs: Vital Signs Temp Pulse Resp BP Pulse Ox O2 Del Method O2 Flow Rate 97.9 F 98 18 113/50 L 92 Nasal Cannula 4 11/21/21 12:01 11/21/21 12:28 11/21/21 12:01 11/21/21 12:01 11/21/21 12:11/21/21 12:01 11/21/21 12:01 Oxygen Flow Rate (L/min) 4 Oxygen Delivery Method Nasal Cannula Weight: 133 lb 2.547 oz Body Mass Index (BMI) 25.1 Intake & Output: Intake and Output for Last 24 Hours 11/19/21 11/20/21 11/21/21 23:59 23:59 23:59 Intake Total 1305 / 1305 Balance 1305 / 1305 Lab / Micro Data Result Diagrams: 11/21/21 03:30 11/21/21 06:49 Labs: Laboratory Results - last 24 hr 11/20/21 23:28: WBC 10.3, RBC 3.30 L, Hgb 9.6 L, Hct 27.6 L, MCV 83.6, MCH 29.1, MCHC 34.8, RDW Std Deviation 46.2 H, RDW Coeff of Flaco 15.3 H, Plt Count 318, MPV 9.6, Immature Gran % (Auto) 0.600, Neut % (Auto) 77.3 H, Lymph % (Auto) 7.3 L, [place] % (Auto) 14.5 H, Eos % (Auto) 0.1, Baso % (Auto) 0.2, Absolute Neuts (auto) 8.0 H, Absolute Lymphs (auto) 0.75 L, Nucleated RBC % 0 11/20/21 23:28: PT 12.4, INR 1.0, APTT 23.5 L 11/20/21 23:28: Sodium 130 L, Potassium 3.7, Chloride 91 L, Carbon Dioxide 28.0, Anion Gap 11, BUN 21 H, Creatinine 1.52 H, Estim Creat Clear Calc 25.62, Est GFR (MDRD) Af Amer 43 L, Est GFR (MDRD) Non-Af 36 L, BUN/Creatinine Ratio 13.8, Glucose 120 H, Calcium 8.7, Magnesium 1.8, Troponin I High Sens 8, TSH 1.01 11/20/21 23:28: B-Natriuretic Peptide 388.5 H 11/21/21 01:46: Procalcitonin 19.60 H 11/21/21 03:30: WBC 9.6, RBC 3.38 L, Hgb 9.5 L, Hct 28.7 L, MCV 84.9, MCH 28.1, MCHC 33.1, RDW Std Deviation 47.6 H, RDW Coeff of Flaco 15.4 H, Plt Count 288, MPV 9.1, Immature Gran % (Auto) 0.400, Neut % (Auto) 78.1 H, Lymph % (Auto) 6.8 L, [place] % (Auto) 14.4 H, Eos % (Auto) 0.2, Baso % (Auto) 0.1, Absolute Neuts (auto) 7.5, Absolute Lymphs (auto) 0.66 L, Nucleated RBC % 0 11/21/21 03:30: Troponin I High Sens 8 11/21/21 06:49: Sodium 129 L, Potassium 3.7, Chloride 92 L, Carbon Dioxide 28.0, Anion Gap 9, BUN 20 H, Creatinine 1.32 H, Estim Creat Clear Calc 29.50, Est GFR (MDRD) Af Amer 51 L, Est GFR (MDRD) Non-Af 42 L, BUN/Creatinine Ratio 15.2, Glucose 108 H, Calcium 8.2 L, Total Bilirubin 0.30, AST 144 H, ALT 101 H, Alkaline Phosphatase 262 H, Troponin I High Sens 9, Total Protein 5.9 L, Albumin 2.7 L, Globulin 3.2, Albumin/Globulin Ratio 0.8 L, TSH 0.59 Micro: Microbiology 11/21/21 04:45 Urine, Clean Catch Legionella Antigen - Final 11/20/21 20:10 Nasal Secretion SARS-CoV-2 & FLU Antigen (Rapid) - Final Radiography Diagnostic Testing: Radiology Impression Echocardiogram 11/21/21 02:45 Interpretation Summary The estimated ejection fraction is 70 %. No evidence for diastolic dysfunction. The left atrium is mildly enlarged. Ordering Physician: Claudia^ Referring Physician: Conner Daley Performed By: Thelma Cross, RDCS, RVT Chest CTA 11/21/21 23:50 IMPRESSION: 1. Right perihilar lung cancer with metastatic pleural effusion, local lymph node metastases, and extensive liver metastases. There is postobstructive right lower lobe atelectasis and consolidation. 2. No finding of pulmonary embolus. Electronically Signed: Anselmo Langford MD at 1:05 EDT , Physical Exam Const alert and oriented x3 HEENT normocephalic and moist oral mucous membranes Eyes PERRL, EOMs intact bilaterally and conjunctivae normal Neck no lymphadenopathy Resp clear to auscultation bilaterally Auscultation: diminished lung sounds Cardio regular rate, regular rhythm and no murmurs Peripheral Pulses: pulses 2+ throughout GI normal to inspection, nondistended, normoactive bowel sounds, non-tender and non-distended Extremity normal to inspection Skin no rashes or lesions noted Lesions: no lesions Rashes: no rashes Trauma: no lacerations or abrasions Neuro CN's II-XII intact bilaterally, no focal motor deficits, no sensory deficits noted and deep tendon reflexes 2+ bilaterally Psych mental status grossly normal and affect normal Assessment & Plan Assessment/Plan (1) Hypoxia: PLAN: Plan 1. Acute hypoxia, shortness of breath secondary to right perihilar lung mass with extensive liver mets and right lower lobe postobstructive consolidation- continue IV Rocephin and IV azithromycin empirically. Pulmonary medicine and oncology consulted. CT of abdomen and pelvis ordered. Pending imaging, consi jacob possible liver biopsy. New diagnosis cancer/mass. 2. Paroxysmal atrial fibrillation with RVR-patient received Cardizem bolus in ED. Converted to sinus rhythm this morning. Echocardiogram demonstrates an EF of 70%. Continue oral Cardizem. Cardiology consulted. Hold off on anticoagulation given plans for thoracentesis/biopsy as well as anemia. 3. Acute on chronic anemia-patient reports hemorrhoidal bleeding. Continue PPI. Trend CBC. Hold off on anticoagulation. 4. Chronic kidney disease stage IIIb-suspect at baseline. Trend BMP. 5. Chronic asthma/COPD-as needed albuterol aerosol. 6. Chronic constipation-continue bowel regimen. 7. Hypertension-stable, continue current regimen. 8. Hyperlipidemia-continue statin. 9. Former tobacco use-encouraged cessation. 10. GERD-continue PPI. 11. Anxiety/depression-on as needed Xanax, sertraline. DVT prophylaxis-SCDs This patient was seen by JUANITO Winters under the supervision of Dr. Grier. Time spent examining patient, reviewing data and subsequent management of care: 16 minutes Documented by User: Dr. Maricel Grier MD 11/21/21 14:19 Objective Data Lab / Micro Data Result Diagrams: 11/21/21 03:30 11/21/21 06:49 Assessment & Plan Assessment/Plan (1) Hypoxia: Charges/Coding Addendum Addendum: Patient seen by Tata SOLOMON under my supervision Patient seen and examined. She denied any palpitations, dizziness,nausea or vo miting. She is quite concerned and shocked at the finding of lung cancer with malignant pleural effusion. Review of systems is otherwise negative. O/E: Const alert, oriented x3 and no apparent distress General Appearance: cooperative HEENT normocephalic, head/scalp atraumatic, hearing grossly normal bilaterally and moist oral mucous membranes Eyes PERRL, EOMs intact bilaterally and conjunctivae normal Neck no lymphadenopathy, supple and no JVD Resp markedly diminished breath sounds in the right mid and lower lung rodriguez, no wheezing or crackles. on 4L of oxygen Cardio regular rate, regular rhythm, S1 normal heart sound, S2 normal heart sound and no murmurs GI normal to inspection, nondistended, normoactive bowel sounds and soft to palpation GI Narrative: abdominal dressing over surgical site Extremity normal to inspection, full ROM and no clubbing, cyanosis or edema Skin no rashes or lesions noted Neuro oriented x3, CN's II-XII intact bilaterally and moves all extremities Sensorium / Orientation: awake and alert Psych affect normal Assessment and plan #Hypoxia due to newly diagnosed right perihilar lung mass with pleural effusion * on 4L of oxygen by nasal canula * oncology and pulmonology consulted * on IV ceftriaxone and azithromycin for post obstructive pneumonia * CT of hte abdomen and pelvis ordered for staging * titrate oxygen to maintain sats >90% * breathing treatment with bronchodilators * #Afib with RVR * said she had been having paroxysmal afib for 2 months, but went into RVR yesterday * now converted to normal sinus rhythm * on oral cardizem * 2d Echo showed EF of 70% * cardiology consulted * CHADVASC score: at least 3; hold off on anticoagulation for now pending bi opsy/thoracentesis as part of workup for cancer * #chronic anemia: has history of hemorrhoidal bleeding. on PPI. Trend hb #Hyponatremia: Na is 129 today. May be due to lung cancer,as well as probable fluid overload. Await biopsy results. Will trend sodium' #Ashtma and COPD: not in exacerbation. on breathing treatment with bronchodialtors Chronic problems include hypertnsion and hyperlipidemia, management of which are as per Tata Fuentes [employer] CLEANER-C's note. DVT prophylaxis: SCDs Total time I spent on care of the patient today: 22 mins, with Tata Fuentes spending 16 mins, making a total of 38 mins. Visit Charges Inpatient E&M: 33498 [facility] L3
--- NOTE | 2021-11-21 13:37 | PCM.CONS.C ---
Assessment & Plan Assessment/Plan (1) PAF (paroxysmal atrial fibrillation): PLAN: Continue Cardizem. We will add low-dose metoprolol in addition. Patient's congestive heart failure symptoms are likely related to her A. fib. Her 2D echo was reviewed. I think it will be reasonable to keep the patient currently on aspirin 81 mg p.o. daily. Her CHADS2 score is 0. She has been seen by pulmonary and CT-guided biopsy of the lung lesions is being considered. HPI Consult Data Date of Consult: 11/21/21 HPI Narrative Reason for Consultation: A fib HPI Narrative: KEY EATON, is a 71 F who presents with palpitations weight gain and shortness of breath. Patient has history of SVT status post ablation about 6 years back. She has been having paroxysmal A. fib over this period. She is on Cardizem and was also prescribed Coumadin which she has not started yet. Eliquis was considered but was too expensive for the patient. Her symptoms started over the last 2 days. She does not have a prior history of CHF and she did not have shortness of breath and weight gain prior to going into A. fib this time. Patient can tell when she goes into A. fib as she feels the palpitations whenever she goes into A. fib. This admission she was also diagnosed with possible lung cancer with mets. Patient was given IV Lasix and now she is back to her baseline. She has converted to sinus rhythm. Review of systems: All systems reviewed. All else is negative except that in [facility] Medical History (Updated 11/21/21 @ 13:[address] Sanjiv Laird, DO) Asthma Atrial fibrillation Chronic anemia Depression Former smoker GERD (gastroesophageal reflux disease) Migraines Home Medications acetaminophen 500 mg tablet 1,000 mg PO Q6H PRN Pain 11/20/21 [History Last Taken Unknown] alprazolam 0.5 mg tablet 0.5 tab PO TID PRN Anxiety 11/20/21 [History Last Taken Unknown] atorvastatin 10 mg tablet 10 tab PO DAILY 11/20/21 [History Last Taken Unknown] bisacodyl 5 mg tablet,delayed release (Dulcolax (bisacodyl)) 5 mg PO QHS PRN Constipation 11/20/21 [History Last Taken Unknown] diltiazem HCl 90 mg tablet 90 tab PO 4X/DAY 11/20/21 [History Last Taken Unknown] furosemide 20 mg tablet 20 tab PO DAILY PRN Edema 11/20/21 [History Last Taken Unknown] senna-docusate sodium tablet 2 tab PO DAILY 11/20/21 [History Last Taken Unknown] sertraline 100 mg tablet 100 tab PO DAILY 11/20/21 [History Last Taken Unknown] cetirizine 10 mg tablet 10 mg PO DAILY 11/21/21 [History Last Taken Unknown] cholecalciferol (vitamin D3) 125 mcg (5,000 unit) tablet 125 mcg PO DAILY 11/21/21 [History Last Taken Unknown] magnesium 250 mg tablet 250 mg PO DAILY 11/21/21 [History Last Taken Unknown] Allergy/AdvReac Type Severity Reaction Status Date / Time albuterol Allergy Other Verified 11/20/21 23:13 [From Proventil HFA] Family History (Updated 11/21/21 @ 00:[address] Cherrie De La Rosa MD) Mother CVA (cerebral vascular accident) Heart disease Hypertension HLD (hyperlipidemia) Father Asthma Hypertension PAF (paroxysmal atrial fibrillation) Surgical History (Updated 11/21/21 @ 00:[address] Cherrie De La Rosa MD) H/O kidney removal History of cardiac radiofrequency ablation Hx of tubal ligation Social History (Updated 11/21/21 @ 00:[address] Cherrie De La Rosa MD) household members: none Smoking Status: Former smoker how long ago did patient quit smoking: Quit 08/30/1983, smoked 1/2 ppd since age 27 until quit. alcohol intake: never substance use type: does not use Physical Exam Const alert and oriented x3 HEENT normocephalic Eyes no scleral icterus Neck no JVD Resp clear to auscultation bilaterally Cardio regular rate and regular rhythm Extremity no pedal edema Skin no rashes or lesions noted Psych mental status grossly normal Risk Stratification Risk Stratification Applicable: No Charges/Coding Visit Charges Inpatient E&M: 54622 Init Hosp L3 Objective Data Vital Signs: Vital Signs Temp Pulse Resp BP Pulse Ox O2 Del Method O2 Flow Rate 97.9 F 98 18 113/50 L 92 Nasal Cannula 4 11/21/21 12:01 11/21/21 12:28 11/21/21 12:01 11/21/21 12:01 11/21/21 12:01 11/21/21 12:01 11/21/21 12:01 Oxygen Flow Rate (L/min) 4 Oxygen Delivery Method Nasal Cannula Weight: 133 lb 2.547 oz Body Mass Index (BMI) 25.1 Intake & Output: Intake and Output for Last 24 Hours 11/19/21 11/20/21 11/21/21 23:59 23:59 23:59 Intake Total 1305 / 1305 Balance 1305 / 1305 Lab / Micro Data Result Diagrams: 11/21/21 03:30 11/21/21 06:49 Labs: Laboratory Results - last 24 hr 11/20/21 23:28: WBC 10.3, RBC 3.30 L, Hgb 9.6 L, Hct 27.6 L, MCV 83.6, MCH 29.1, MCHC 34.8, RDW Std Deviation 46.2 H, RDW Coeff of Flaco 15.3 H, Plt Count 318, MPV 9.6, Immature Gran % (Auto) 0.600, Neut % (Auto) 77.3 H, Lymph % (Auto) 7.3 L, [place] % (Auto) 14.5 H, Eos % (Auto) 0.1, Baso % (Auto) 0.2, Absolute Neuts (auto) 8.0 H, Absolute Lymphs (auto) 0.75 L, Nucleated RBC % 0 11/20/21 23:28: PT 12.4, INR 1.0, APTT 23.5 L 11/20/21 23:28: Sodium 130 L, Potassium 3.7, Chloride 91 L, Carbon Dioxide 28.0, Anion Gap 11, BUN 21 H, Creatinine 1.52 H, Estim Creat Clear Calc 25.62, Est GFR (MDRD) Af Amer 43 L, Est GFR (MDRD) Non-Af 36 L, BUN/Creatinine Ratio 13.8, Glucose 120 H, Calcium 8.7, Magnesium 1.8, Troponin I High Sens 8, TSH 1.01 11/20/21 23:28: B-Natriuretic Peptide 388.5 H 11/21/21 01:46: Procalcitonin 19.60 H 11/21/21 03:30: WBC 9.6, RBC 3.38 L, Hgb 9.5 L, Hct 28.7 L, MCV 84.9, MCH 28.1, MCHC 33.1, RDW Std Deviation 47.6 H, RDW Coeff of Flaco 15.4 H, Plt Count 288, MPV 9.1, Immature Gran % (Auto) 0.400, Neut % (Auto) 78.1 H, Lymph % (Auto) 6.8 L, [place] % (Auto) 14.4 H, Eos % (Auto) 0.2, Baso % (Auto) 0.1, Absolute Neuts (auto) 7.5, Absolute Lymphs (auto) 0.66 L, Nucleated RBC % 0 11/21/21 03:30: Troponin I High Sens 8 11/21/21 06:49: Sodium 129 L, Potassium 3.7, Chloride 92 L, Carbon Dioxide 28.0, Anion Gap 9, BUN 20 H, Creatinine 1.32 H, Estim Creat Clear Calc 29.50, Est GFR (MDRD) Af Amer 51 L, Est GFR (MDRD) Non-Af 42 L, BUN/Creatinine Ratio 15.2, Glucose 108 H, Calcium 8.2 L, Total Bilirubin 0.30, AST 144 H, ALT 101 H, Alkaline Phosphatase 262 H, Troponin I High Sens 9, Total Protein 5.9 L, Albumin 2.7 L, Globulin 3.2, Albumin/Globulin Ratio 0.8 L, TSH 0.59 Micro: Microbiology 11/21/21 04:45 Urine, Clean Catch Legionella Antigen - Final 11/20/21 20:10 Nasal Secretion SARS-CoV-2 & FLU Antigen (Rapid) - Final Cardiology Labs/Tests 11/20/21 23:28: WBC 10.3, RBC 3.30 L, Hgb 9.6 L, Hct 27.6 L, MCV 83.6, MCH 29.1, MCHC 34.8, Plt Count 318, MPV 9.6, Immature Gran % (Auto) 0.600, Neut % (Auto) 77.3 H, Lymph % (Auto) 7.3 L, [place] % (Auto) 14.5 H, Eos % (Auto) 0.1, Baso % (Auto) 0.2, Absolute Neuts (auto) 8.0 H, Nucleated RBC % 0 11/20/21 23:28: PT 12.4, INR 1.0, APTT 23.5 L 11/20/21 23:28: Sodium 130 L, Potassium 3.7, Chloride 91 L, Carbon Dioxide 28.0, Anion Gap 11, BUN 21 H, Creatinine 1.52 H, Est GFR (MDRD) Af Amer 43 L, Est GFR (MDRD) Non-Af 36 L, BUN/Creatinine Ratio 13.8, Glucose 120 H, Calcium 8.7, Magnesium 1.8 11/20/21 23:28: B-Natriuretic Peptide 388.5 H 11/21/21 03:30: WBC 9.6, RBC 3.38 L, Hgb 9.5 L, Hct 28.7 L, MCV 84.9, MCH 28.1, MCHC 33.1, Plt Count 288, MPV 9.1, Immature Gran % (Auto) 0.400, Neut % (Auto) 78.1 H, Lymph % (Auto) 6.8 L, [place] % (Auto) 14.4 H, Eos % (Auto) 0.2, Baso % (Auto) 0.1, Absolute Neuts (auto) 7.5, Nucleated RBC % 0 11/21/21 06:49: Sodium 129 L, Potassium 3.7, Chloride 92 L, Carbon Dioxide 28.0, Anion Gap 9, BUN 20 H, Creatinine 1.32 H, Est GFR (MDRD) Af Amer 51 L, Est GFR (MDRD) Non-Af 42 L, BUN/Creatinine Ratio 15.2, Glucose 108 H, Calcium 8.2 L, Total Bilirubin 0.30 Rhythm: EKG: ECHO: Stress Test: Cardiac Cath: PCI: CT Surgery: Holter monitor: EPS: PPM: CXR: Chest CT Scan: Radiography Diagnostic Testing: Radiology Impression Echocardiogram 11/21/21 02:45 Interpretation Summary The estimated ejection fraction is 70 %. No evidence for diastolic dysfunction. The left atrium is mildly enlarged. Ordering Physician: Estrella^Cherrie^Keshia^^ Referring Physician: Conner Daley Performed By: Thelma Cross, RDCS, RVT Chest CTA 11/21/21 23:50 IMPRESSION: 1. Right perihilar lung cancer with metastatic pleural effusion, local lymph node metastases, and extensive liver metastases. There is postobstructive right lower lobe atelectasis and consolidation. 2. No finding of pulmonary embolus. Electronically Signed: Anselmo Langford MD at 1:05 EDT ,
--- NOTE | 2021-11-21 13:40 | CASEMGMT ---
SW completed Healthcare Power of Surgical Product Sales Consultant and Healthcare Living Will with patient per her request. Copies were made and given to patient along with originals. SW also placed copies in patient's chart. Cathy HERNÁNDEZ
[2021-11-21] MEDS: Contrast Allergy Safety Check IV (15:18)
[2021-11-21] MEDS: 0.9% Saline Lock 10 ML Syringe IV (15:18)
--- NOTE | 2021-11-21 17:29 | ONC.CONSULT ---
Assessment & Plan Assessment/Plan (1) Disseminated cancer: Status: Acute Code(s): C80.0 - Disseminated malignant neoplasm, unspecified Plan: Involving the R lung, mediastinal nodes, both lobes of liver, Left ovarian mass. Suggest obtaining CT guided bx of Liver, CA125. She can follow up in the [place] [facility], [place] if discharged after biopsy. HPI Consult Data Date of Service:: 11/21/21 PCP / Referring Provider: Dr. Conner Daley MD Attending: Dr. Maricel Grier MD Chief Complaint Chief Complaint: Asked to see Pt for R lung mass and multiple liver masses. History of Present Illness History of Present Illness: 71y.o.woman presented to [facility] ER with SOB and Hypoxia. Had CTA on 11/20/2021 showed ?Right perihilar lung cancer with metastatic pleural effusion, local lymph node metastases, and extensive liver metastases. She wants to know the cancer before she makes her decision about therapy. Advanced Directives Power of Documentation Spec: No Living Will: No [facility] Medical History (Updated 11/21/21 @ 17:[address] Marcello Carter MD) Asthma Atrial fibrillation Chronic anemia Depression Former smoker GERD (gastroesophageal reflux disease) Migraines Home Medications acetaminophen 500 mg tablet 1,000 mg PO Q6H PRN Pain 11/20/21 [History Last Taken Unknown] alprazolam 0.5 mg tablet 0.5 tab PO TID PRN Anxiety 11/20/21 [History Last Taken Unknown] atorvastatin 10 mg tablet 10 tab PO DAILY 11/20/21 [History Last Taken Unknown] bisacodyl 5 mg tablet,delayed release (Dulcolax (bisacodyl)) 5 mg PO QHS PRN Constipation 11/20/21 [History Last Taken Unknown] diltiazem HCl 90 mg tablet 90 tab PO 4X/DAY 11/20/21 [History Last Taken Unknown] furosemide 20 mg tablet 20 tab PO DAILY PRN Edema 11/20/21 [History Last Taken Unknown] senna-docusate sodium tablet 2 tab PO DAILY 11/20/21 [History Last Taken Unknown] sertraline 100 mg tablet 100 tab PO DAILY 11/20/21 [History Last Taken Unknown] cetirizine 10 mg tablet 10 mg PO DAILY 11/21/21 [History Last Taken Unknown] cholecalciferol (vitamin D3) 125 mcg (5,000 unit) tablet 125 mcg PO DAILY 11/21/21 [History Last Taken Unknown] magnesium 250 mg tablet 250 mg PO DAILY 11/21/21 [History Last Taken Unknown] Allergy/AdvReac Type Severity Reaction Status Date / Time albuterol Allergy Other Verified 11/20/21 23:13 [From Proventil HFA] Family History (Updated 11/21/21 @ 00:[address] Cherrie De La Rosa MD) Mother CVA (cerebral vascular accident) Heart disease Hypertension HLD (hyperlipidemia) Father Asthma Hypertension PAF (paroxysmal atrial fibrillation) Surgical History (Updated 11/21/21 @ 00:[address] Cherrie De La Rosa MD) H/O kidney removal History of cardiac radiofrequency ablation Hx of tubal ligation Social History (Updated 11/21/21 @ 00:[address] Cherrie De La Rosa MD) household members: none Smoking Status: Former smoker how long ago did patient quit smoking: Quit 08/30/1983, smoked 1/2 ppd since age 27 until quit. alcohol intake: never substance use type: does not use ROS Constitutional Constitutional: Reports fatigue; Denies body ache(s), chills or fever(s) Eyes Eyes: Denies blurry vision or change in vision ENT HEENT: Denies dizziness, dysphagia, epistaxis or headache(s) Cardiovascular Cardiovascular: Reports dyspnea; Denies chest pain, claudication or dizziness Respiratory/Chest Respiratory/Chest: Reports dyspnea Gastrointestinal Gastrointestinal: Denies abdominal pain, diarrhea, nausea or vomiting Genitourinary Genitourinary: Denies difficulty urinating Musculoskeletal Musculoskeletal: Denies arthralgias or back pain Integumentary Integumentary: Denies lesions, rash or skin ulcer Neurologic Neurologic: Denies abnormal gait or abnormal speech Psychiatric Psychiatric: Denies anxiety Endocrine Endocrinology: Reports fatigue Hematologic/Lymphatic Hematologic/Lymphatic: Denies easy bleeding or easy bruising Physical Exam Const alert and oriented x3 HEENT normocephalic Eyes no scleral icterus Neck no JVD Lymph Lymphatic: no lymphadenopathy noted Chest inspection of chest normal and inspection of breasts normal Resp clear to auscultation bilaterally Cardio regular rate and regular rhythm GI normal to inspection, nondistended, normoactive bowel sounds Extremity no pedal edema Skin no rashes or lesions noted Neuro CN's II-XII intact bilaterally and moves all extremities Psych mental status grossly normal Vital Signs Temperature 97.8 F 11/21/21 14:23 Temperature Source Oral 11/21/21 14:23 Pulse Rate 81 11/21/21 17:15 Respiratory Rate 18 11/21/21 14:23 Respiratory Effort 11/21/21 03:11 Respiratory Depth Normal 11/21/21 03:11 Respiratory Pattern Normal 11/21/21 06:52 Blood Pressure 118/61 11/21/21 14:23 Blood Pressure Mean 80 11/21/21 14:23 Blood Pressure Source Monitor 11/21/21 14:23 Blood Pressure Position Semi-Fowlers 11/21/21 14:23 Blood Pressure Location Left Arm 11/21/21 14:23 Pulse Ox 94 11/21/21 14:23 Oxygen Delivery Method Nasal Cannula 11/21/21 14:23 Oxygen Flow Rate (L/min) 4 11/21/21 14:23 Laboratory Results - last 24 hr 11/20/21 23:28: WBC 10.3, RBC 3.30 L, Hgb 9.6 L, Hct 27.6 L, MCV 83.6, MCH 29.1, MCHC 34.8, RDW Std Deviation 46.2 H, RDW Coeff of Flaco 15.3 H, Plt Count 318, MPV 9.6, Immature Gran % (Auto) 0.600, Neut % (Auto) 77.3 H, Lymph % (Auto) 7.3 L, [place] % (Auto) 14.5 H, Eos % (Auto) 0.1, Baso % (Auto) 0.2, Absolute Neuts (auto) 8.0 H, Absolute Lymphs (auto) 0.75 L, Nucleated RBC % 0 11/20/21 23:28: PT 12.4, INR 1.0, APTT 23.5 L 11/20/21 23:28: Sodium 130 L, Potassium 3.7, Chloride 91 L, Carbon Dioxide 28.0, Anion Gap 11, BUN 21 H, Creatinine 1.52 H, Estim Creat Clear Calc 25.62, Est GFR (MDRD) Af Amer 43 L, Est GFR (MDRD) Non-Af 36 L, BUN/Creatinine Ratio 13.8, Glucose 120 H, Calcium 8.7, Magnesium 1.8, Troponin I High Sens 8, TSH 1.01 11/20/21 23:28: B-Natriuretic Peptide 388.5 H 11/21/21 01:46: Procalcitonin 19.60 H 11/21/21 03:30: WBC 9.6, RBC 3.38 L, Hgb 9.5 L, Hct 28.7 L, MCV 84.9, MCH 28.1, MCHC 33.1, RDW Std Deviation 47.6 H, RDW Coeff of Flaco 15.4 H, Plt Count 288, MPV 9.1, Immature Gran % (Auto) 0.400, Neut % (Auto) 78.1 H, Lymph % (Auto) 6.8 L, [place] % (Auto) 14.4 H, Eos % (Auto) 0.2, Baso % (Auto) 0.1, Absolute Neuts (auto) 7.5, Absolute Lymphs (auto) 0.66 L, Nucleated RBC % 0 11/21/21 03:30: Troponin I High Sens 8 11/21/21 06:49: Sodium 129 L, Potassium 3.7, Chloride 92 L, Carbon Dioxide 28.0, Anion Gap 9, BUN 20 H, Creatinine 1.32 H, Estim Creat Clear Calc 29.50, Est GFR (MDRD) Af Amer 51 L, Est GFR (MDRD) Non-Af 42 L, BUN/Creatinine Ratio 15.2, Glucose 108 H, Calcium 8.2 L, Total Bilirubin 0.30, AST 144 H, ALT 101 H, Alkaline Phosphatase 262 H, Troponin I High Sens 9, Total Protein 5.9 L, Albumin 2.7 L, Globulin 3.2, Albumin/Globulin Ratio 0.8 L, TSH 0.59 Microbiology 11/21/21 04:45 Urine, Clean Catch Legionella Antigen - Final 11/20/21 20:10 Nasal Secretion SARS-CoV-2 & FLU Antigen (Rapid) - Final Diagnostic Data Echocardiogram 11/21/21 02:45 Interpretation Summary The estimated ejection fraction is 70 %. No evidence for diastolic dysfunction. The left atrium is mildly enlarged. Ordering Physician: Estrella^Cherrie^Keshia^^ Referring Physician: Conner Daley Performed By: Thelma Cross, FABIAN, RVT Abdomen/Pelvis CT 11/21/21 12:05 IMPRESSION: Diffuse hepatomegaly with multiple hypodense solid nodules scattered throughout both lobes of the liver in keeping with diffuse metastasis. Possible small gallstones. Dense consolidation of the right lower lobe with tiny bilateral pleural effusions. Electronically Signed: Rajesh Salinas MD at 15:18 EDT , Chest CTA 11/21/21 23:50 IMPRESSION: 1. Right perihilar lung cancer with metastatic pleural effusion, local lymph node metastases, and extensive liver metastases. There is postobstructive right lower lobe atelectasis and consolidation. 2. No finding of pulmonary embolus. Electronically Signed: Anselmo Langford MD at 1:05 EDT , Charges/Coding Visit Charges Office Visits / Consults: [id number] IP Consult L4
[2021-11-21] MEDS: Metoprolol Tartrate 25 MG Tablet 12.5 MG PO (22:05)
[2021-11-21] MEDS: Atorvastatin Calcium 10 MG Tablet PO (22:05)
--- NOTE | 2021-11-21 23:50 | CT_ITS ---
STUDY: CTA CHEST REASON FOR EXAM: Female, 71 years old. Chest pain RADIATION DOSAGE (If Supplied By Facility): CTDIvol = ( 10.81 ) mGy, DLP = ( 309.31 ) mGycm TECHNIQUE: The examination was performed with the intravenous administration of IV 100mL Isovue-370. Post-processing of the angiographic images was performed, with multiplanar reformation and 3D reconstruction. Individualized dose optimization techniques were used for this CT. COMPARISON: None. FINDINGS: Normal enhancement of the main pulmonary artery and right and left pulmonary arteries. Normal enhancement of the bilateral peripheral pulmonary arteries. Lung mass detailed below causes mass effect on the right lower lobar and segmental pulmonary arteries. There is no demonstrated pulmonary embolism. Normal thoracic aorta and visualized great vessels. There is no demonstrated aortic dissection. Normal heart and pericardium. Mildly enlarged AP window lymph nodes. Bulky right hilar lymphadenopathy. Small hiatal hernia. 8.2 x 5.2 x 6.5 cm right hilar lung mass with extension into the mediastinum causes obstruction of a right lower lobe segmental bronchus, and mass effect with narrowing on several right lower and middle lobe bronchi. There is post obstructive bronchiectasis, mucous plugging, and consolidation. Minimal left lung base atelectasis. Small right pleural effusion. Normal chest wall structures. Exaggerated thoracic kyphosis. Innumerable hypoattenuating lesions throughout the liver. CT/CTA Chest W/WO Contrast IMPRESSION: 1. Right perihilar lung cancer with metastatic pleural effusion, local lymph node metastases, and extensive liver metastases. There is postobstructive right lower lobe atelectasis and consolidation. 2. No finding of pulmonary embolus. Electronically Signed: Anselmo Langford MD at 1:05 EDT ,
[2021-11-22] VITALS (23 sets, daily range): BP systolic 94–118; BP diastolic 40–62; PULSE 69–97; RESP 14–20; TEMP 36.1–37.2; O2SAT 16–98; BMI 23.6
--- NOTE | 2021-11-22 | IMM_PTH ---
PATIENT: KEY EATON LOC: [facility] U#:[id number] AGE/SX: 71/F ROOM: [facility] RE11/21/[address]: Dr. Maricel Grier MD : 1950 BED: 1 DIS: 11/23/2021 SPEC #: [id number] RECD: 11/25/21 11:06 STATUS: GRACIE REQ #: [id number] JOSE FRANCISCO: 11/22/21 00:[address]: Maricel Grier DEPT: IMMUNOHISTOCHEMISTRY RECD BY: Gregoria Burleson ENTERED: 11/25/21 11:07 SP TYPE: IMMUNO OTHR DR: MD Dr. Sanjiv Ramirez DO Dr. David Tomchak, MD Dr. Joseph Prah, MD Dr. Nagapradee Nagajothi, MD Tissues: Liver, NOS Procedures: Synapto (add) CD45 (add) CD56 (add) CHROMO (add) CK20 (add) CK7 (add) CK8 (add) KI-67 (add) TTF1 (add) Pankeratin (initial) PHYSICIAN & [place] [id number] SPECIMEN INFORMATION: Tissue Source: Right lobe liver Clinical Info: Liver mass Specimen Number: [id number] CPT code: 79953, 62559 x9 METHODOLOGY: Deparaffinized sections of prefer/formalin-fixed tissue or PAP/DQ stained slides are incubated with monoclonal/polyclonal antibodies/oligonucleotide probes. Localization is made via biotin free immunoperoxidase method. Appropriate controls are performed and reacted as expected. Results on target cell population are indicated in the following table: RESULTS: ANTIBODY / CLONE RESULT AE1-3 (AE1/AE3/PCK26) positive CK7 (OV-TL12/30) positive CK8 (44mvjoJ82) positive CK20 (KS20.8) negative CD45 (RP2/18) negative CD56 (123C3.D5) positive Chromo (LK2H10) positive Synapto (polyclonal) positive TTF-1 (8G7G3/1) positive Ki-67 (30-9) positive, high These tests were developed and their performance characteristics determined by [facility]. They may not have been cleared or approved by the U.S. Food and Drug Administration. The FDA has determined that such clearance or approval is not necessary. The above immunohistochemical/dualISH markers are ordered and reviewed by the Pathologist. INTERPRETATION: Right lobe of liver, CT-guided core biopsy: Consistent with metastatic small cell carcinoma. SJ:africa 11/26/2021 Case has been reviewed in consultation with Dr. Robbins who concurs with the above diagnosis. IDC:AM
[2021-11-22] MEDS: dilTIAZem 30 MG Tablet 90 MG PO ×5 (00:49→23:55)
[2021-11-22] MEDS: oxyCODONE 5 MG Tablet PO ×3 (02:34→22:07)
[2021-11-22 07:21] LABS: Absolute Lymphocyte Count 0.52 X10^3/uL (0.83-4.51); Absolute Neutrophil Count 6.5 X10^3/uL (2.0-7.7); Basophil# 0.01 X10^3/uL; Basophil% 0.1 % (0-1); Eosinophil# 0.01 X10^3/uL; Eosinophils% 0.1 % (0-5); Hematocrit 26.8 % (37-47); Hemoglobin 8.9 g/dL (12.0-15.0); Lymphocyte # 0.52 X10^3/ul (0.83-4.51); Lymphocyte % 6.3 % (19-41); Mean Corp Hgb Conc 33.2 g/dL (32-36); Mean Corpuscular Hgb 28.3 pg (27.0-32.0); Mean Corpuscular Volume 85.4 fL (81-99); Mean Platelet Vol. 9.7 fl (6.2-12.0); Monocyte# 1.11 X10^3/uL; Monocyte% 13.5 % (0-10); NRBC Flagged by Analyzer 0 % (0-5); Neutrophil # 6.54 X10^3/uL (2.7-7.7); Neutrophil % 79.3 % (47-70); POSITIVE DIFFERENTIAL YES; Platelet Count 299 K/mm3 (150-450); RBC Distribution Width CV 15.5 % (11.6-14.6); RBC Distribution Width SD 47.8 fl (35.1-43.9); Red Blood Count 3.14 M/mm3 (4.2-5.4); White Blood Count 8.3 K/mm3 (4.4-11.0)
[2021-11-22 07:23] LABS: Differential Indicated SCAN CRITERIA MET
[2021-11-22 07:42] LABS: Anion Gap 10 (5-15); BUN 18 mg/dL (7-18); BUN/Creat Ratio 12.6 RATIO (10-20); Calcium,Total 8.3 mg/dL (8.5-10.1); Chloride 95 mmol/L (98-107); Creatinine, Serum 1.43 mg/dL (0.55-1.02); EST Glomerular Filtration Rate 38 mL/min (>60); Est Glom Filt Rate - Afr Amer 46 mL/min (>60); Estimated Creatinine Clearance 27.23 ml/min; Glucose 103 mg/dL (74-106); Potassium 3.6 mmol/L (3.5-5.1); Sodium Level 132 mmol/L (136-145)
[2021-11-22 07:54] LABS: Hypochromasia 1+
[2021-11-22] MEDS: fentaNYL 100 MCG/2 ML Ampul IV (08:59)
[2021-11-22] MEDS: 0.9% Normal Saline 250 ML IV.SOLN. IV (08:59)
[2021-11-22] MEDS: 0.9% Saline Lock 10 ML Syringe IV (09:00)
[2021-11-22] MEDS: Lidocaine 2% (10 ml mdv) 10 ML Vial INFILT (09:00)
--- NOTE | 2021-11-22 09:00 | ASPIGT_PTH ---
PATIENT: KEY EATON LOC: [facility] U#:[id number] AGE/SX: 71/F ROOM: [facility] RE11/21/[address]: Dr. Maricel Grier MD : 1950 BED: 1 DIS: 11/23/2021 SPEC #: [id number] RECD: 11/22/21 09:34 STATUS: GRACIE REQ #: [id number] JOSE FRANCISCO: 11/22/21 09:[address]: Maricel Grier DEPT: SURGICAL PATHOLOGY RECD BY: Nora Campos ENTERED: 11/22/21 09:34 SP TYPE: ASP RAD OTHR DR: MD Dr. Sanjiv Ramirez DO Dr. David Tomchak, MD Dr. Joseph Prah, MD Dr. Nagapradee Nagajothi, MD Tissues: Liver, NOS Procedures: FNA Specimen Adequacy Special Stain Group II Surgery Specimen Level V Imprint (control) HEADER OPERATION: CT-guided liver biopsy PRE-OP DIAGNOSIS: Liver mass TISSUE SUBMITTED: Right lobe liver 18-gauge core x4 MICROSCOPIC DIAGNOSIS Right lobe of liver, CT-guided core biopsy: Metastatic small cell carcinoma. See comment. YAMILETH:africa 11/25/2021 COMMENT The specimen is evaluated at the time of biopsy by Dr. Shore. Immediate Evaluation = Malignant cells present. Immunohistochemistry ([id number]) supports the above diagnosis. Correlation with clinical, radiologic findings and appropriate follow-up are necessary. This case has been reviewed in consultation with Dr. Robbins who concurs with above diagnosis. MICROSCOPIC DESCRIPTION Slides are reviewed. GROSS DESCRIPTION Received in fixative is one container labeled with the patient's name and designated right lobe liver. The specimen consists of multiple elongated fragments of santoyo soft tissue that in aggregate measure 2.5 x 0.3 x 0.1 cm. The specimen is totally submitted in one cassette. Three touch imprints are prepared at the time of core biopsy. / YAMILETH:africa 11/22/2021 TC:0 CPT: 08905, 83320
--- NOTE | 2021-11-22 09:00 | CT_ITS ---
PROCEDURE: CT DIRECTED CORE LIVER BIOPSY INDICATION: Female, 71 years old. LIVER METS PHYSICIAN: Dr. EARNEST Ceja CONSENT: Written informed consent was obtained having explained the risks, benefits and alternatives in detail with the patient who accepted the risks and agreed to proceed. Laboratory review and clinical assessment was performed. CONSCIOUS SEDATION PROTOCOL: The Drugs used were: 1 mg Versed, IV., and 50 mcg Fentanyl, IV. The sedation time was: 21 minutes. Conscious sedation was started at 8:59 AM and terminated at 9:20 AM. The conscious sedation protocol was independently monitored. RADIATION DOSAGE (If Supplied By Facility): CTDIvol = ( 16.5 ) mGy, DLP = ( 395.47 ) mGycm Individualized dose optimization techniques were used for this CT. TECHNIQUE: Using CT image guidance with image documentation, a suitable location in the right lobe of the liver was identified. Using an anterior approach, puncture of the liver was uneventful with an 18-gauge core needle system. 4, 18-gauge core samples were obtained, and submitted in formalin to the pathologist for further assessment. Followup CT scan revealed no distinct sequelae. CT/Biopsy/Inj or Needle Placement IMPRESSION: 1. CT directed core needle biopsy of the liver, using CT image guidance with image documentation as described. 2. Conscious Sedation protocol utilized with independent monitoring. Electronically Signed: Rajesh Salinas MD at 9:45 EDT ,
[2021-11-22] MEDS: Midazolam 2 MG/2 ML Syringe IV (09:01)
[2021-11-22] MEDS: Metoprolol Tartrate 25 MG Tablet 12.5 MG PO ×2 (11:17→22:06)
[2021-11-22] MEDS: Loratadine 10 MG Tablet PO (11:18)
[2021-11-22] MEDS: Pantoprazole Sodium 40 MG Tablet PO ×2 (11:18→22:14)
[2021-11-22] MEDS: Cholecalciferol (Vit D3) 125 MCG CAPSULE (5,000 UNITS) PO (11:18)
[2021-11-22] MEDS: Sertraline 100 MG Tablet PO (11:18)
[2021-11-22] MEDS: Magnesium Chloride 64 MG Delay Rel.Tablet PO (11:19)
--- NOTE | 2021-11-22 11:50 | PCM.PN.INT ---
Assessment & Plan Assessment/Plan (1) Lung mass: PLAN: Plan RECOMMENDATIONS: 1. The patient can likely be transition to Levaquin to complete 7 days of therapy. 2. Continue to wean supplemental oxygen as tolerated. 3. Perform walking oximetry prior to consideration for discharge home. 4. Encourage incentive spirometer use and mobilize patient as tolerated. 5. The patient should follow-up in the pulmonary medicine clinic after discharge. IMPRESSIONS: 1. Right perihilar lung mass with probable postobstructive pneumonia The patient's CT chest demonstrated a right hilar lung mass which appears to be causing narrowing/occlusion of the right middle and lower lobe with what is likely a component of postobstructive pneumonia and atelectasis. In addition, multiple hypoattenuating lesions were noted throughout the liver, concerning for metastatic disease. At this time, the patient has tolerated CT-guided core needle biopsies of the aforementioned liver lesions. I would recommend that the patient be continued on antibiotics to complete 7 days of therapy. Perform walking oximetry study prior to consideration for discharge home. The patient should follow-up in the pulmonary medicine clinic after discharge. This note was generated with [employer] dictation software. It may contain incorrect words, spelling, and punctuation that were not noted in checking the note before signing. Subjective Subjective The patient was seen and examined at the bedside this morning. Events from the last 24 hours have been reviewed. The patient is currently afebrile, hemodynamically stable and maintaining appropriate oxygen saturations on 3 L/min via nasal cannula. The patient tolerated her liver biopsies this morning. She remains on empiric antimicrobials. Lab work is stable this morning. Objective Data Objective Data The patient's most recent lab work, culture data and imaging studies have all been personally reviewed. Vital Signs: Vital Signs Temp Pulse Resp BP Pulse Ox O2 Del Method O2 Flow Rate 98.2 F 79 18 102/51 L 94 Nasal Cannula 4 11/22/21 10:58 11/22/21 11:17 11/22/21 10:58 11/22/21 10:58 11/22/21 10:58 11/22/21 10:58 11/22/21 10:58 Oxygen Flow Rate (L/min) [5] 15 Oxygen Flow Rate (L/min) [4] 15 Oxygen Flow Rate (L/min) [3] 15 Oxygen Flow Rate (L/min) [2] 15 Oxygen Flow Rate (L/min) [1 ( 4 Initial Baseline)] Oxygen Flow Rate (L/min) 4 Oxygen Delivery Method [5] Non-Rebreather Oxygen Delivery Method [4] Non-Rebreather Oxygen Delivery Method [3] Non-Rebreather Oxygen Delivery Method [2] Non-Rebreather Oxygen Delivery Method [1 ( Nasal Cannula Initial Baseline)] Oxygen Delivery Method Nasal Cannula Weight: 125 lb Body Mass Index (BMI) 23.6 Intake & Output: Intake and Output for Last 24 Hours 11/20/21 11/21/21 11/22/21 23:59 23:59 23:59 Intake Total 2054 66.46 / 66.46 Balance 2054 66.46 / 66.46 Lab / Micro Data Attestation: I reviewed the patient's lab results. Result Diagrams: 11/22/21 06:30 11/22/21 06:30 Labs: Laboratory Results - last 24 hr 11/22/21 06:30: WBC 8.3, RBC 3.14 L, Hgb 8.9 L, Hct 26.8 L, MCV 85.4, MCH 28.3, MCHC 33.2, RDW Std Deviation 47.8 H, RDW Coeff of Flaco 15.5 H, Plt Count 299, MPV 9.7, Immature Gran % (Auto) 0.700, Neut % (Auto) 79.3 H, Lymph % (Auto) 6.3 L, [place] % (Auto) 13.5 H, Eos % (Auto) 0.1, Baso % (Auto) 0.1, Absolute Neuts (auto) 6.5, Absolute Lymphs (auto) 0.52 L, Nucleated RBC % 0, Hypochromasia 1+ 11/22/21 06:30: Sodium 132 L, Potassium 3.6, Chloride 95 L, Carbon Dioxide 27.0, Anion Gap 10, BUN 18, Creatinine 1.43 H, Estim Creat Clear Calc 27.23, Est GFR (MDRD) Af Amer 46 L, Est GFR (MDRD) Non-Af 38 L, BUN/Creatinine Ratio 12.6, Glucose 103, Calcium 8.3 L Micro: Microbiology 11/21/21 18:25 Stool Stool Occult Blood (TIO) - Final 11/21/21 04:45 Urine, Clean Catch Legionella Antigen - Final 11/20/21 20:10 Nasal Secretion SARS-CoV-2 & FLU Antigen (Rapid) - Final Radiography Diagnostic Testing: Radiology Impression Echocardiogram 11/21/21 02:45 Interpretation Summary The estimated ejection fraction is 70 %. No evidence for diastolic dysfunction. The left atrium is mildly enlarged. Ordering Physician: Yoly^Keshia^^ Referring Physician: Conner Daley Performed By: Thelma Cross, RDCS, RVT Abdomen/Pelvis CT 11/21/21 12:05 IMPRESSION: Diffuse hepatomegaly with multiple hypodense solid nodules scattered throughout both lobes of the liver in keeping with diffuse metastasis. Possible small gallstones. Dense consolidation of the right lower lobe with tiny bilateral pleural effusions. Electronically Signed: Rajesh Salinas MD at 15:18 EDT , Biopsy CT 11/22/21 09:00 IMPRESSION: 1. CT directed core needle biopsy of the liver, using CT image guidance with image documentation as described. 2. Conscious Sedation protocol utilized with independent monitoring. Electronically Signed: Rajesh Salinas MD at 9:45 EDT , Physical Exam Const alert and no apparent distress General Appearance: cooperative HEENT normocephalic, head/scalp atraumatic and moist oral mucous membranes Eyes PERRL, EOMs intact bilaterally and conjunctivae normal Neck supple General: trachea midline Chest inspection of chest normal Resp normal respiratory effort Auscultation: diminished lung sounds Cardio regular rate and regular rhythm GI normal to inspection, nondistended, normoactive bowel sounds Extremity no clubbing, cyanosis or edema Skin no rashes or lesions noted Neuro oriented x3, CN's II-XII intact bilaterally and moves all extremities Psych cooperative and affect normal Charges/Coding Visit Charges Inpatient E&M: 37655 Subs Hosp L2
--- NOTE | 2021-11-22 13:35 | PN.HOSP_ITS ---
Documented by User: Tata Fuentes SAFETY BELT INSTALLER, SAFETY BELT INSTALLER-C 11/22/21 13:46 Subjective Subjective Patient seen and examined. Patient states she does not feel she can care for herself at home. Denies significant shortness of breath. Reports generalized weakness and states she lives alone. Does not want to go to SNF. Objective Data Objective Data Vital Signs: Vital Signs Temp Pulse Resp BP Pulse Ox O2 Del Method O2 Flow Rate 98.2 F 97 18 102/51 L 94 Nasal Cannula 4 11/22/21 10:58 11/22/21 12:05 11/22/21 10:58 11/22/21 10:58 11/22/21 10:58 11/22/21 10:58 11/22/21 10:58 Oxygen Flow Rate (L/min) [5] 15 Oxygen Flow Rate (L/min) [4] 15 Oxygen Flow Rate (L/min) [3] 15 Oxygen Flow Rate (L/min) [2] 15 Oxygen Flow Rate (L/min) [1 ( 4 Initial Baseline)] Oxygen Flow Rate (L/min) 4 Oxygen Delivery Method [5] Non-Rebreather Oxygen Delivery Method [4] Non-Rebreather Oxygen Delivery Method [3] Non-Rebreather Oxygen Delivery Method [2] Non-Rebreather Oxygen Delivery Method [1 ( Nasal Cannula Initial Baseline)] Oxygen Delivery Method Nasal Cannula Weight: 125 lb Body Mass Index (BMI) 23.6 Intake & Output: Intake and Output for Last 24 Hours 11/20/21 11/21/21 11/22/21 23:59 23:59 23:59 Intake Total 2054 66.46 / 66.46 Balance 2054 66.46 / 66.46 Lab / Micro Data Result Diagrams: 11/22/21 06:30 11/22/21 06:30 Labs: Laboratory Results - last 24 hr 11/22/21 06:30: WBC 8.3, RBC 3.14 L, Hgb 8.9 L, Hct 26.8 L, MCV 85.4, MCH 28.3, MCHC 33.2, RDW Std Deviation 47.8 H, RDW Coeff of Flaco 15.5 H, Plt Count 299, MPV 9.7, Immature Gran % (Auto) 0.700, Neut % (Auto) 79.3 H, Lymph % (Auto) 6.3 L, [place] % (Auto) 13.5 H, Eos % (Auto) 0.1, Baso % (Auto) 0.1, Absolute Neuts (auto) 6.5, Absolute Lymphs (auto) 0.52 L, Nucleated RBC % 0, Hypochromasia 1+ 11/22/21 06:30: Sodium 132 L, Potassium 3.6, Chloride 95 L, Carbon Dioxide 27.0, Anion Gap 10, BUN 18, Creatinine 1.43 H, Estim Creat Clear Calc 27.23, Est GFR (MDRD) Af Amer 46 L, Est GFR (MDRD) Non-Af 38 L, BUN/Creatinine Ratio 12.6, Glucose 103, Calcium 8.3 L Micro: Microbiology 11/21/21 18:25 Stool Stool Occult Blood (TIO) - Final 11/21/21 04:45 Urine, Clean Catch Legionella Antigen - Final 11/20/21 20:10 Nasal Secretion SARS-CoV-2 & FLU Antigen (Rapid) - Final Radiography Diagnostic Testing: Radiology Impression Abdomen/Pelvis CT 11/21/21 12:05 IMPRESSION: Diffuse hepatomegaly with multiple hypodense solid nodules scattered throughout both lobes of the liver in keeping with diffuse metastasis. Possible small gallstones. Dense consolidation of the right lower lobe with tiny bilateral pleural effusions. Electronically Signed: Rajesh Salinas MD at 15:18 EDT , Biopsy CT 11/22/21 09:00 IMPRESSION: 1. CT directed core needle biopsy of the liver, using CT image guidance with image documentation as described. 2. Conscious Sedation protocol utilized with independent monitoring. Electronically Signed: Rajesh Salinas MD at 9:45 EDT , Physical Exam Const alert, oriented x3 and no apparent distress Orientation / Consciousness: awake, oriented to person, oriented to place and oriented to time HEENT normocephalic and moist oral mucous membranes Eyes PERRL, EOMs intact bilaterally and conjunctivae normal Neck no lymphadenopathy Resp normal respiratory effort and clear to auscultation bilaterally Cardio regular rate, regular rhythm and no murmurs Peripheral Pulses: pulses 2+ throughout GI normal to inspection, nondistended, normoactive bowel sounds, non-tender and non-distended Extremity normal to inspection Skin no rashes or lesions noted Lesions: no lesions Rashes: no rashes Trauma: no lacerations or abrasions Neuro CN's II-XII intact bilaterally, no focal motor deficits, no sensory deficits noted and deep tendon reflexes 2+ bilaterally Psych mental status grossly normal and affect normal Assessment & Plan Assessment/Plan (1) Hypoxia: (2) Disseminated cancer: PLAN: Plan 1.? Acute hypoxia, shortness of breath secondary to right perihilar lung mass with extensive liver mets and right lower lobe postobstructive consolidation- continue IV Rocephin and IV azithromycin empirically.? Transition to Levaquin at discharge to complete course. Pulmonary medicine and oncology consulted.? New diagnosis cancer/mass. Patient underwent liver biopsy this morning. Likely discharge in a.m. PT eval pending. 2. Paroxysmal atrial fibrillation with RVR-currently in sinus rhythm.? Echocardiogram demonstrates an EF of 70%.? Continue oral Cardizem.? Cardiology consulted.? Cardiology recommending baby aspirin. 3. Acute on chronic anemia-patient reports hemorrhoidal bleeding.? Continue PPI.? Trend CBC.? 4. Chronic kidney disease stage IIIb-suspect at baseline.? Trend BMP. 5. Chronic asthma/COPD-as needed albuterol aerosol. 6. Chronic constipation-continue bowel regimen. 7. Hypertension-stable, continue current regimen. 8. Hyperlipidemia-continue statin. 9. Former tobacco use-encouraged cessation. 10. GERD-continue PPI. 11. Anxiety/depression-on as needed Xanax, sertraline. DVT prophylaxis-SCDs This patient was seen by JUANITO Winters under the supervision of Dr. Grier. Time spent examining patient, reviewing data and subsequent management of care: 12 minutes Documented by User: Dr. Maricel Grier MD 11/22/21 16:30 Objective Data Lab / Micro Data Result Diagrams: 11/22/21 06:30 11/22/21 06:30 Assessment & Plan Assessment/Plan (1) Hypoxia: (2) Disseminated cancer: Charges/Coding Addendum Addendum: Patient seen by Tata SOLOMON under my supervision Patient seen and examined. She had the liver biopsy today. She complained of a headache at the time I reviewed her. However she had no other complaints. SHe denied any fever, chills, cough, chest pain, palpitations, dizziness, nausea, vomiting or diarrhea. Review of systems is otherwise negative. O/E: Const alert, oriented x3 and no apparent distress General Appearance: cooperative HEENT normocephalic, head/scalp atraumatic, hearing grossly normal bilaterally and moist oral mucous membranes Eyes PERRL, EOMs intact bilaterally and conjunctivae normal Neck no lymphadenopathy, supple and no JVD Resp markedly diminished breath sounds in the right mid and lower lung rodriguez, no wheezing or crackles. on 4L of oxygen Cardio regular rate, regular rhythm, S1 normal heart sound, S2 normal heart sound and no murmurs GI normal to inspection, nondistended, normoactive bowel sounds and soft to palpation GI Narrative: abdominal dressing over surgical site Extremity normal to inspection, full ROM and no clubbing, cyanosis or edema Skin no rashes or lesions noted Neuro oriented x3, CN's II-XII intact bilaterally and moves all extremities Sensorium / Orientation: awake and alert Psych affect normal Assessment and plan #Hypoxia due to newly diagnosed right perihilar lung mass with pleural effusion * still on 4L of oxygen by nasal canula * oncology and pulmonology consulted * on IV ceftriaxone and azithromycin for post obstructive pneumonia * CT of the abdomen and pelvis showed diffuse hepatomegaly with multiple hypodense solid nodules scattered throughout both lobes of the liver in keeping with diffuse metastases. * had CT guided biopsy of the liver lesions today. Await pathology report * titrate oxygen to maintain sats >90% * breathing treatment with bronchodilators * * #Afib * converted to normal sinus rhythm, and RVR has resolved. * on oral cardizem * 2d Echo showed EF of 70% * cardiology on board * CHADVASC score: at least 3; on baby aspirin per cardiology recommendations. * #chronic anemia: has history of hemorrhoidal bleeding. on PPI. Hb today is 8.9. Will monitor #Hyponatremia: Na is 132 today. Will continue monitoring. #Ashtma and COPD: not in exacerbation. on breathing treatment with bronchodialtors Chronic problems include hypertension and hyperlipidemia, management of which are as per Tata Fuentes SAFETY BELT INSTALLER-C's note. DVT prophylaxis: SCDs Total time I spent on care of the patient today: 18 mins, with Tata Fuentes spending 12 mins, making a total of 30 mins. Visit Charges Inpatient E&M: 69704 Subs Hosp L2
--- NOTE | 2021-11-22 15:23 | CASEMGMT ---
Per Wendi SHANK CARRIER, pt has concerns about going home at discharge. This RN CM to room and pt states concerns with just having the anesthetic and de-satting at home. Pt aware that she will be set up with home oxygen at discharge. Pt states she will have a WW at discharge from a friend and declines assistance in getting own. Pt states would also like a tub bench but is aware that medicare does not generally cover these and states will have friend grab her one at [facility]. Pt adamantly declines need for SNF or HHC at discharge. Pt states has emergency call buttons in the main living areas of her independent living apt. Pt voices no further questions/concerns/needs. Plan is to d/c pt home tomorrow. Shaniqua HENRY CM
[2021-11-22] MEDS: dexAMETHasone 10 MG/ML Vial IV (15:25)
[2021-11-22] MEDS: ALPRAZolam 0.5 MG Tablet PO (18:52)
[2021-11-22] MEDS: Atorvastatin Calcium 10 MG Tablet PO (22:07)
[2021-11-22] MEDS: Acetaminophen 325 MG Tablet 650 MG PO (22:08)
[2021-11-23] VITALS (10 sets, daily range): BP systolic 110–121; BP diastolic 58–66; PULSE 65–76; RESP 15–20; TEMP 36.5–36.6; O2SAT 86–94
[2021-11-23] MEDS: dilTIAZem 30 MG Tablet 90 MG PO ×2 (05:14→12:45)
[2021-11-23] MEDS: Acetaminophen 325 MG Tablet 650 MG PO ×2 (05:21→10:31)
[2021-11-23] MEDS: oxyCODONE 5 MG Tablet PO ×2 (05:21→11:55)
[2021-11-23 06:01] LABS: Absolute Lymphocyte Count 0.33 X10^3/uL (0.83-4.51); Absolute Neutrophil Count 8.2 X10^3/uL (2.0-7.7); Basophil# 0.01 X10^3/uL; Basophil% 0.1 % (0-1); Hemoglobin 8.3 g/dL (12.0-15.0); Lymphocyte # 0.33 X10^3/ul (0.83-4.51); Lymphocyte % 3.4 % (19-41); Mean Corp Hgb Conc 31.9 g/dL (32-36); Mean Corpuscular Hgb 27.9 pg (27.0-32.0); Mean Corpuscular Volume 87.5 fL (81-99); Mean Platelet Vol. 10.1 fl (6.2-12.0); Monocyte# 1.16 X10^3/uL; Monocyte% 11.8 % (0-10); NRBC Flagged by Analyzer 0 % (0-5); Neutrophil # 8.24 X10^3/uL (2.7-7.7); Neutrophil % 83.9 % (47-70); POSITIVE DIFFERENTIAL YES; Platelet Count 300 K/mm3 (150-450); RBC Distribution Width CV 15.4 % (11.6-14.6); RBC Distribution Width SD 49.1 fl (35.1-43.9); Red Blood Count 2.97 M/mm3 (4.2-5.4); White Blood Count 9.8 K/mm3 (4.4-11.0)
[2021-11-23 06:10] LABS: Differential Indicated SCAN CRITERIA MET
[2021-11-23 06:28] LABS: Anion Gap 9 (5-15); BUN 22 mg/dL (7-18); BUN/Creat Ratio 13.3 RATIO (10-20); Calcium,Total 8.1 mg/dL (8.5-10.1); Chloride 98 mmol/L (98-107); Creatinine, Serum 1.66 mg/dL (0.55-1.02); EST Glomerular Filtration Rate 32 mL/min (>60); Est Glom Filt Rate - Afr Amer 39 mL/min (>60); Estimated Creatinine Clearance 23.46 ml/min; Glucose 131 mg/dL (74-106); Potassium 3.7 mmol/L (3.5-5.1); Sodium Level 133 mmol/L (136-145)
[2021-11-23 06:29] LABS: Differential Comment SCANNED
[2021-11-23] MEDS: Magnesium Chloride 64 MG Delay Rel.Tablet PO (10:18)
[2021-11-23] MEDS: Loratadine 10 MG Tablet PO (10:18)
[2021-11-23] MEDS: Pantoprazole Sodium 40 MG Tablet PO (10:18)
[2021-11-23] MEDS: Metoprolol Tartrate 25 MG Tablet 12.5 MG PO (10:19)
[2021-11-23] MEDS: Aspirin 81 MG TAB.CHEW PO (10:20)
[2021-11-23] MEDS: Cholecalciferol (Vit D3) 125 MCG CAPSULE (5,000 UNITS) PO (10:21)
[2021-11-23] MEDS: Senna/Docusate Sodium 1 Tablet 2 TABLET PO (10:21)
[2021-11-23] MEDS: Sertraline 100 MG Tablet PO (10:22)
[2021-11-23] MEDS: ALPRAZolam 0.5 MG Tablet PO (10:32)
--- NOTE | 2021-11-23 10:43 | DCINST_ITS ---
Discharge Instructions Diet Discharge Diet: No restrictions Activity Discharge Activity: Return to Normal Activity and Use Walker Dressing / Incision Call your doctor if you observe: Fever of 101 or Higher, Shortness of breath, Dizziness, Chest pain and Uncontrolled pain Follow Up Care Test Results: Test results from this visit will be discussed in further detail at your follow- up appointment, if applicable. Discharge Plan Admission Admit Date/Time: 11/21/21 01:09 Primary Reason for Your Visit: Lung mass with liver mets Attending Provider: Maricel Grier Primary Care Provider: Conner Daley Consulting Providers: Sanjiv Laird ; Cherrie De La Rosa ; Benji Pond ; Marcello Carter Instructions Patient Instructions: ALEXA RN Biopsy Liver Dc Discharge Orders/Prescriptions Prescriptions: New pantoprazole 40 mg Tablet,Delayed Release (Dr/Ec) 40 mg PO BID 30 Days Qty: 60 0RF Rx Instructions: Take twice daily for 4 weeks then 40 mg daily aspirin 81 mg Tablet,Chewable 81 mg PO BREAKFAST 30 Days Qty: 30 0RF metoprolol tartrate 25 mg Tablet 12.5 mg PO BID 30 Days Qty: 30 0RF levofloxacin 750 mg tablet 750 mg PO Q48H Qty: 3 0RF Continued atorvastatin 10 mg tablet 10 tab PO DAILY Label Comments: TAKE 1 TABLET BY MOUTH EVERY DAY sertraline 100 mg tablet 100 tab PO DAILY Label Comments: TAKE 1 TABLET BY MOUTH EVERY DAY acetaminophen 500 mg Tablet 1,000 mg PO Q6H PRN (Reason: Pain) alprazolam 0.5 mg tablet 0.5 tab PO TID PRN (Reason: Anxiety) Label Comments: TAKE 0.5 - 1 TABLET BY ORAL ROUTE 3 TIMES EVERY DAY NEEDED bisacodyl [Dulcolax (bisacodyl)] 5 mg Tablet,Delayed Release (Dr/Ec) 5 mg PO QHS PRN (Reason: Constipation) furosemide 20 mg tablet 20 tab PO DAILY PRN (Reason: Edema) Label Comments: TAKE 1 TABLET BY MOUTH EVERY DAY NEEDED FOR SWELLING Rx Instructions: daily as needed prn for swelling diltiazem HCl 90 mg tablet 90 tab PO 4X/DAY Label Comments: TAKE 1 TABLET BY MOUTH FOUR TIMES A DAY senna-docusate sodium Tablet 2 tab PO DAILY cetirizine 10 mg Tablet 10 mg PO DAILY magnesium 250 mg Tablet 250 mg PO DAILY cholecalciferol (vitamin D3) 125 mcg (5,000 unit) Tablet 125 mcg PO DAILY Referrals / Follow Up: Sanjiv Laird DO [Med Staff - Active Staff] - In 1 Week Conner Daley MD [Primary Care Provider] - In 1 Week Marcello Carter MD [Med Staff - Active Staff] - In 1 Week Anselmo Finnegan MD [Med Staff - Active Staff] - Within 1 Month (May see SPECIALTY MANUFACTURING SUPERVISOR/PA at follow-up. Seen by Dr. Pond during admission. ) Disposition Disposition (needs filled in before D/C Order can be placed): Home, Self Care
--- NOTE | 2021-11-23 10:46 | NURSING ---
[place] [facility] [place]
--- NOTE | 2021-11-23 11:08 | DS.PCM_ITS ---
Providers Date of Admission: 11/21/21 Date of Discharge: 11/23/21 Primary Care Physician: Dr. Conner Daley MD Consultations 11/21/21 02:45 Consult: Web Development Consultant / Pulmonary Medicine Routine Consulting Provider: Sanjiv Laird Reason for Consult: Lung CA, appears metastatic, hypoxia EMERGENT Consult: No Notified: Yes Date Notified: 11/21/21 Time Notified: 01:11 Method of Notification: Text Consult: Oncology/Hematology Routine Consulting Provider: Marcello Carter Reason for Consult: New Dx metastatic Lung CA EMERGENT Consult: No Notified: Yes Date Notified: 11/21/21 Time Notified: 07:11 Method of Notification: Text 11/21/21 07:00 Consult: Cardiology Routine Consulting Provider: Benji Pond Reason for Consult: PAF w/ RVR episodes, intermittent, wants to establish w/ [facility] EMERGENT Consult: No Notified: Yes Date Notified: 11/21/21 Time Notified: 07:10 Method of Notification: Text Reason For Visit: PAF W/RVR, ACUTE ON CHRONIC ANEMIA, LUNG CA NEW DX Diagnosis Discharge Diagnosis (1) Hypoxia: Status: Acute Code(s): R09.02 - Hypoxemia (2) Disseminated cancer: Status: Acute Code(s): C80.0 - Disseminated malignant neoplasm, unspecified Medications at Discharge Home Medications acetaminophen 500 mg tablet 1,000 mg PO Q6H PRN Pain 11/20/21 alprazolam 0.5 mg tablet 0.5 tab PO TID PRN Anxiety 11/20/21 atorvastatin 10 mg tablet 10 tab PO DAILY cholesterol 11/20/21 bisacodyl 5 mg tablet,delayed release (Dulcolax (bisacodyl)) 5 mg PO QHS PRN Constipation 11/20/21 diltiazem HCl 90 mg tablet 90 tab PO 4X/DAY heart rate 11/20/21 furosemide 20 mg tablet 20 tab PO DAILY PRN Edema 11/20/21 senna-docusate sodium tablet 2 tab PO DAILY 11/20/21 sertraline 100 mg tablet 100 tab PO DAILY 11/20/21 cetirizine 10 mg tablet 10 mg PO DAILY allergies 11/21/21 cholecalciferol (vitamin D3) 125 mcg (5,000 unit) tablet 125 mcg PO DAILY vitamin 11/21/21 magnesium 250 mg tablet 250 mg PO DAILY 11/21/21 aspirin 81 mg chewable tablet 81 mg PO BREAKFAST 30 days #30 tabs 11/23/21 levofloxacin 750 mg tablet 750 mg PO Q48H #3 tabs 11/23/21 metoprolol tartrate 25 mg tablet 12.5 mg PO BID 30 days #30 tabs 11/23/21 pantoprazole 40 mg tablet,delayed release 40 mg PO BID 30 days #60 tabs 11/23/21 Hospital Course Operations None Procedures - (liver bx) Summary of Care Provided Hospital Course: Patient is a 71-year-old female admitted 11/21/2021 due to dyspnea, palpitations. 1.? Acute hypoxia, shortness of breath secondary to right perihilar lung mass with extensive liver mets and right lower lobe postobstructive consolidation-IV Rocephin and IV azithromycin empirically during admission, transition to Levaquin at discharge to complete course. Pulmonary medicine and oncology con sulted during admission.? New diagnosis cancer/mass.? Underwent liver biopsy 11/22/2021. Follow-up with oncology within 1 week for results and plan of care. Patient will require supplemental oxygen at discharge. She is ambulatory in the home. Continue 2 L at rest and 4 L with exertion to maintain O2 at or above 90%. Follow-up with PCP and pulmonary medicine in 1 week as well. 2. Paroxysmal atrial fibrillation with RVR-currently in sinus rhythm.? Echocardiogram demonstrates an EF of 70%.? Continue oral Cardizem.? Cardiology consulted during admission, patient requesting to transition to [place] [facility].? Cardiology recommending baby aspirin. Follow-up with cardiology within 1 month 3. Acute on chronic anemia-patient reports hemorrhoidal bleeding.? Stool negative for occult blood. Continue PPI empirically. 4. Chronic kidney disease stage IIIb- at baseline.? Trend BMP. 5. Chronic asthma/COPD-no exacerbation. 6. Chronic constipation-continue bowel regimen. 7. Hypertension-stable, continue current regimen. 8. Hyperlipidemia-continue statin. 9. Former tobacco use-encouraged cessation. 10. GERD-continue PPI. 11. Anxiety/depression-on as needed Xanax, sertraline. Physical Exam Const alert, oriented x3 and no apparent distress Orientation / Consciousness: awake, oriented to person, oriented to place and oriented to time HEENT normocephalic and moist oral mucous membranes Eyes PERRL, EOMs intact bilaterally and conjunctivae normal Neck no lymphadenopathy Resp normal respiratory effort and clear to auscultation bilaterally Cardio regular rate, regular rhythm and no murmurs Peripheral Pulses: pulses 2+ throughout GI normal to inspection, nondistended, normoactive bowel sounds, non-tender and non-distended Extremity normal to inspection Skin no rashes or lesions noted Lesions: no lesions Rashes: no rashes Trauma: no lacerations or abrasions Neuro CN's II-XII intact bilaterally, no focal motor deficits, no sensory deficits noted and deep tendon reflexes 2+ bilaterally Psych mental status grossly normal and affect normal Patient seen and examined prior to discharge. Physical assessment as noted above. Patient is stable for discharge with follow up recommendations as noted above. This patient was seen by JUANITO Winters under the supervision of Dr. Grier. Time spent examining patient, reviewing data and subsequent management of care: 25 minutes Weight / BMI Weight Weight: 135 lb 5.821 oz Body Mass Index (BMI) 23.6 ABG / Lab / Microbiology Data Result Diagrams: 11/23/21 05:24 11/23/21 05:24 Laboratory: Laboratory Results - last 24 hr 11/23/21 05:24: WBC 9.8, RBC 2.97 L, Hgb 8.3 L, Hct 26.0 L, MCV 87.5, MCH 27.9, MCHC 31.9 L, RDW Std Deviation 49.1 H, RDW Coeff of Flaco 15.4 H, Plt Count 300, MPV 10.1, Immature Gran % (Auto) 0.800, Neut % (Auto) 83.9 H, Lymph % (Auto) 3.4 L, [place] % (Auto) 11.8 H, Eos % (Auto) 0.0, Baso % (Auto) 0.1, Absolute Neuts (auto) 8.2 H, Absolute Lymphs (auto) 0.33 L, Nucleated RBC % 0, Differential Comment SCANNED 11/23/21 05:24: Sodium 133 L, Potassium 3.7, Chloride 98, Carbon Dioxide 26.0, Anion Gap 9, BUN 22 H, Creatinine 1.66 H, Estim Creat Clear Calc 23.46, Est GFR (MDRD) Af Amer 39 L, Est GFR (MDRD) Non-Af 32 L, BUN/Creatinine Ratio 13.3, Glucose 131 H, Calcium 8.1 L Microbiology: Microbiology 11/21/21 18:25 Stool Stool Occult Blood (TIO) - Final 11/21/21 04:45 Urine, Clean Catch Legionella Antigen - Final 11/20/21 20:10 Nasal Secretion SARS-CoV-2 & FLU Antigen (Rapid) - Final D/C Instructions Discharge Diet: No restrictions Call your doctor if you observe: Fever of 101 or Higher, Shortness of breath, Dizziness, Chest pain and Uncontrolled pain Meaningful Use Info Meaningful Use Diagnoses (Choose all that apply): None applicable Discharge Plan Admission Admit Date/Time: 11/21/21 01:09 Primary Reason for Your Visit: Lung mass with liver mets Attending Provider: Maricel Grier Primary Care Provider: Conner Daley Consulting Providers: Sanjiv Laird ; Cherrie De La Rosa ; Benji Pond ; Marcello Carter Instructions Patient Instructions: RAD RN Biopsy Liver Dc Discharge Orders/Prescriptions Prescriptions: New pantoprazole 40 mg Tablet,Delayed Release (Dr/Ec) 40 mg PO BID 30 Days Qty: 60 0RF Rx Instructions: Take twice daily for 4 weeks then 40 mg daily aspirin 81 mg Tablet,Chewable 81 mg PO BREAKFAST 30 Days Qty: 30 0RF metoprolol tartrate 25 mg Tablet 12.5 mg PO BID 30 Days Qty: 30 0RF levofloxacin 750 mg tablet 750 mg PO Q48H Qty: 3 0RF Continued atorvastatin 10 mg tablet 10 tab PO DAILY Label Comments: TAKE 1 TABLET BY MOUTH EVERY DAY sertraline 100 mg tablet 100 tab PO DAILY Label Comments: TAKE 1 TABLET BY MOUTH EVERY DAY acetaminophen 500 mg Tablet 1,000 mg PO Q6H PRN (Reason: Pain) alprazolam 0.5 mg tablet 0.5 tab PO TID PRN (Reason: Anxiety) Label Comments: TAKE 0.5 - 1 TABLET BY ORAL ROUTE 3 TIMES EVERY DAY NEEDED bisacodyl [Dulcolax (bisacodyl)] 5 mg Tablet,Delayed Release (Dr/Ec) 5 mg PO QHS PRN (Reason: Constipation) furosemide 20 mg tablet 20 tab PO DAILY PRN (Reason: Edema) Label Comments: TAKE 1 TABLET BY MOUTH EVERY DAY NEEDED FOR SWELLING Rx Instructions: daily as needed prn for swelling diltiazem HCl 90 mg tablet 90 tab PO 4X/DAY Label Comments: TAKE 1 TABLET BY MOUTH FOUR TIMES A DAY senna-docusate sodium Tablet 2 tab PO DAILY cetirizine 10 mg Tablet 10 mg PO DAILY magnesium 250 mg Tablet 250 mg PO DAILY cholecalciferol (vitamin D3) 125 mcg (5,000 unit) Tablet 125 mcg PO DAILY Referrals / Follow Up: Sanjiv Laird DO [Med Staff - Active Staff] - In 1 Week Conner Daley MD [Primary Care Provider] - In 1 Week Marcello Carter MD [Med Staff - Active Staff] - In 1 Week Anselmo Finnegan MD [Med Staff - Active Staff] - Within 1 Month (May see CYTOPATHOLOGY TECHNOLOGIST/PA at follow-up. Seen by Dr. Pond during admission. ) Disposition Disposition (needs filled in before D/C Order can be placed): Home, Self Care
--- NOTE | 2021-11-23 11:16 | NURSING ---
[employer] faxed oxygen qualifications and prescription.
== END 2021-11-23 14:26 | disposition home or self-care (01) | DRG 180 ==
LOC: ED 11-21 00:31 → PCU 11-21 01:34
PROVIDERS: Nurse Practitioner Family; Admitting Provider Family Medicine; Emergency Provider Emergency Medicine; PCP Family Medicine; Visit Provider Student in an Organized Health Care Education/Training Program
DX: C34.01 Malignant neoplasm of right main bronchus (principal); J18.9 Pneumonia, unspecified organism; C77.9 Secondary and unspecified malignant neoplasm of lymph node, unspecified; J44.0 Chronic obstructive pulmonary disease with (acute) lower respiratory infection; E87.1 Hypo-osmolality and hyponatremia; C78.7 Secondary malignant neoplasm of liver and intrahepatic bile duct; J91.0 Malignant pleural effusion; I48.0 Paroxysmal atrial fibrillation; N18.32 Chronic kidney disease, stage 3b; E78.5 Hyperlipidemia, unspecified; K59.09 Other constipation; I12.9 Hypertensive chronic kidney disease with stage 1 through stage 4 chronic kidney disease, or unspecified chronic kidney disease; K21.9 Gastro-esophageal reflux disease without esophagitis; F41.9 Anxiety disorder, unspecified; G43.909 Migraine, unspecified, not intractable, without status migrainosus; D50.0 Iron deficiency anemia secondary to blood loss (chronic); R09.02 Hypoxemia; F32.A Depression, unspecified; Z86.718 Personal history of other venous thrombosis and embolism; Z79.899 Other long term (current) drug therapy; Z87.891 Personal history of nicotine dependence; Z90.5 Acquired absence of kidney
CPT/HCPCS: 36415; 71275; 74177; 77012; 80048; 80053; 82274; 83735; 83880; 84145; 84443; 84484; 85025; 85610; 85730; 86304; 87428; 87449; 88172; 88305; 88307; 88313; 88341; 88342; 93005; 93306; 94640; 99156; 99284; J7030; J7050; Q9967; A4216

== ENCOUNTER 2021-11-26 12:29 | Inpatient (IN) | payer MEDICARE, OTHER, SELFPAY ==
--- NOTE | 2021-11-21 07:47 | EKG12_ITS ---
Test Reason : converted to sr Blood Pressure : / mmHG Vent. Rate : 086 BPM Atrial Rate : 086 BPM P-R Int : 146 ms QRS Dur : 078 ms QT Int : 362 ms P-R-T Axes : 047 009 023 degrees QTc Int : 433 ms Normal sinus rhythm Normal ECG When compared with ECG of 20-NOV-2021 23:28, No significant change was found Confirmed by ELBA MEJIA, ADA ([id number]), publishing editor TILA DUNCAN ([id number]) on 12/04/2021 9:44:08 AM Referred By: Estrella Confirmed By:ADA ARREOLA MD
[2021-11-26] VITALS (14 sets, daily range): BP systolic 96–126; BP diastolic 50–64; PULSE 80–91; RESP 13–26; TEMP 36.2–36.9; O2SAT 86–98; BMI 25.4; BMI 25.1
--- NOTE | 2021-11-26 13:25 | EKG12_ITS ---
Test Reason : Chest pressure Blood Pressure : / mmHG Vent. Rate : 082 BPM Atrial Rate : 082 BPM P-R Int : 136 ms QRS Dur : 082 ms QT Int : 378 ms P-R-T Axes : 032 -02 018 degrees QTc Int : 441 ms Normal sinus rhythm Nonspecific ST abnormality Abnormal ECG Confirmed by ELBA MEJIA, ADA ([id number]), school photograph editor TILA DUNCAN ([id number]) on 11/28/2021 1:55:56 PM Referred By: Ken Confirmed By:ADA ARREOLA MD
--- NOTE | 2021-11-26 13:25 | RAD_ITS ---
INDICATION: sob EXAMINATION/TECHNIQUE: X-RAY - XR Chest 2 Views COMPARISON: None. FINDINGS: LINES/DEVICES: None. LUNGS: Prominence of the bronchovascular interstitial lung markings is visualized bilaterally. Opacification visualized in the right lower lung field consistent with pleural effusion, mild blunting of the left costophrenic angle is seen. Biapical prominence and biapical pleural reaction is seen. MEDIASTINUM AND CARDIOVASCULAR STRUCTURES: Prominence of the cardiac mediastinal silhouette is seen. BONES AND SOFT TISSUES: Unremarkable. RAD/Chest PA and Lateral IMPRESSION: Right pleural effusion. Electronically Signed: Roel Ayoub MD at 14:58 EDT ,
--- NOTE | 2021-11-26 13:26 | EX.ED.DYSGE1 ---
HPI History of Present Illness Chief Complaint: General Illness Informant: patient Onset/Context/Timing Onset: Weeks (1) Context: Gradual Onset Timing: Continuous Quality: abd tightness/distension, chest heaviness Location: diffuse Current Severity: Moderate Maximum Severity: Moderate Worsened by: dyspnea worse w/ exertion, lying down Relieved by: sitting up and resting, increasing oxygen Associated Symptoms Associated Symptoms: sob. feet swelling. Narrative Narrative: Patient was admitted recently and diagnosed with metastatic lung cancer to the liver, which she had biopsied. She has been referred to pulmonary and cardiology and oncology Dr. Carter however in making that appointment with oncology, he is currently out for 3 weeks and she has an appointment with somebody else but has not seen them yet. She was discharged 3 to 4 days ago, she has worsening symptoms that were present when she was here including ascites, dyspnea, chest heaviness, not to the point where she can barely breathe she feels. Patient was discharged on 3 additional days of Levaquin 750 mg. She is still taking that, 1 tab every 48 hrs. [facility] Medical History Asthma Atrial fibrillation Chronic anemia Congestive heart failure (CHF) Depression Former smoker GERD (gastroesophageal reflux disease) Lung cancer Metastatic disease Migraines Home Medications acetaminophen 500 mg tablet 1,000 mg PO Q6H PRN Pain 11/20/21 [History Last Taken Unknown] alprazolam 0.5 mg tablet 0.5 tab PO TID PRN Anxiety 11/20/21 [History Last Taken Unknown] atorvastatin 10 mg tablet 10 tab PO DAILY cholesterol 11/20/21 [History Last Taken Unknown] bisacodyl 5 mg tablet,delayed release (Dulcolax (bisacodyl)) 5 mg PO QHS PRN Constipation 11/20/21 [History Last Taken Unknown] diltiazem HCl 90 mg tablet 90 tab PO 4X/DAY heart rate 11/20/21 [History Last Taken Unknown] furosemide 20 mg tablet 20 tab PO DAILY PRN Edema 11/20/21 [History Last Taken Unknown] senna-docusate sodium tablet 2 tab PO DAILY 11/20/21 [History Last Taken Unknown] sertraline 100 mg tablet 100 tab PO DAILY 11/20/21 [History Last Taken Unknown] cetirizine 10 mg tablet 10 mg PO DAILY allergies 11/21/21 [History Last Taken Unknown] cholecalciferol (vitamin D3) 125 mcg (5,000 unit) tablet 125 mcg PO DAILY vitamin 11/21/21 [History Last Taken Unknown] magnesium 250 mg tablet 250 mg PO DAILY 11/21/21 [History Last Taken Unknown] aspirin 81 mg chewable tablet 81 mg PO BREAKFAST 30 days #30 tabs 11/23/21 [Rx Last Taken Unknown] levofloxacin 750 mg tablet 750 mg PO Q48H #3 tabs 11/23/21 [Rx Last Taken Unknown] metoprolol tartrate 25 mg tablet 12.5 mg PO BID 30 days #30 tabs 11/23/21 [Rx Last Taken Unknown] oxycodone 5 mg capsule 5 mg PO Q4H PRN pain 4 days #20 caps 11/23/21 [Rx Last Taken Unknown] pantoprazole 40 mg tablet,delayed release 40 mg PO BID 30 days #60 tabs 11/23/21 [Rx Last Taken Unknown] Allergy/AdvReac Type Severity Reaction Status Date / Time albuterol Allergy Other Verified 11/26/21 12:44 [From Proventil HFA] Family History (Updated 11/21/21 @ 00:[address] Cherrie De La Rosa MD) Mother CVA (cerebral vascular accident) Heart disease Hypertension HLD (hyperlipidemia) Father Asthma Hypertension PAF (paroxysmal atrial fibrillation) Surgical History (Updated 11/21/21 @ 00:[address] Cherrie De La Rosa MD) H/O kidney removal History of cardiac radiofrequency ablation Hx of tubal ligation Social History household members: none Smoking Status: Former smoker how long ago did patient quit smoking: Quit 08/30/1983, smoked 1/2 ppd since age 27 until quit. alcohol intake: never substance use type: does not use ROS ROS ED Constitutional Constitutional ED: Denies chills or fever(s) Eyes Eyes: Denies change in vision or diplopia ENT ENT ED: Denies rhinorrhea or sore throat Cardiovascular Cardiovascular: Reports chest pain, orthopnea and other Details: Swelling in feet and face in addition to abdomen ; Denies palpitations or racing heartbeat Respiratory/Chest Respiratory/Chest: Reports dyspnea, dyspnea on exertion and orthopnea; Denies cough Gastrointestinal Gastrointestinal: Denies abdominal pain, diarrhea, nausea or vomiting Genitourinary Genitourinary ED: Denies dysuria or hematuria Musculoskeletal Musculoskeletal: Denies back pain or neck pain Integumentary Denies abscess or rash Neurologic Neurologic: Denies headache(s), paresthesias or weakness Psychiatric Psychiatric: Denies anxiety or suicidal thoughts EXAM Physical Exam Const Vital Signs: 11/26/21 12:30 11/26/21 12:39 11/26/21 12:39 Temperature 97.2 F L Temperature Source Temporal Pulse Rate 91 86 Respiratory Rate 20 H 15 Respiratory Effort Normal Respiratory Pattern Normal Blood Pressure 124/62 H 125/61 H Blood Pressure Mean 82 82 Pulse Ox 94 97 Oxygen Delivery Method Nasal Cannula Nasal Cannula Oxygen Flow Rate (L/min) 8 6 Fraction of Inspired Oxygen (FIO2) 11/26/21 13:45 11/26/21 13:45 11/26/21 14:35 Temperature Temperature Source Pulse Rate 85 88 Respiratory Rate 22 H 15 Respiratory Effort Respiratory Pattern Blood Pressure 114/55 L 125/64 H Blood Pressure Mean 74 84 Pulse Ox 96 96 97 Oxygen Delivery Method Nasal Cannula Nasal Cannula Nasal Cannula Oxygen Flow Rate (L/min) 6 6 6 Fraction of Inspired Oxygen (FIO2) 100 11/26/21 15:20 11/26/21 15:30 11/26/21 17:22 Temperature Temperature Source Pulse Rate 87 91 Respiratory Rate 19 H 20 H Respiratory Effort Respiratory Pattern Blood Pressure 126/64 H 111/51 L Blood Pressure Mean 84 71 Pulse Ox 93 98 86 Oxygen Delivery Method Nasal Cannula Nasal Cannula Nasal Cannula Oxygen Flow Rate (L/min) 6 6 2 Fraction of Inspired Oxygen (FIO2) 11/26/21 17:23 Temperature Temperature Source Pulse Rate 89 Respiratory Rate 26 H Respiratory Effort Respiratory Pattern Blood Pressure 106/50 L Blood Pressure Mean 68 Pulse Ox 98 Oxygen Delivery Method Nasal Cannula Oxygen Flow Rate (L/min) 6 Fraction of Inspired Oxygen (FIO2) Positive well nourished and well developed General Appearance ED: well developed and NAD HEENT Reports moist mucous membranes normocephalic and atraumatic Eyes PERRL and EOMs intact bilaterally Neck full ROM and supple Chest Wall inspection of chest normal and palpation of chest normal Resp Resp Narrative: Tachypneic without distress. Decreased breath sounds on the right compared with the left. Otherwise clear. Cardio regular rate, regular rhythm and no murmurs GI non-tender GI Narrative: Tightly distended with ascites. No palpable mass. Auscultation: normoactive bowel sounds Palpation: soft Back/Spine no CVA tenderness General Back: other FROM Extremity normal to inspection General Extremety ED: Negative for edema, pulses abnormal or tenderness General Extremity: Negative for edema or pulses abnormal Neuro oriented x3, CN's II-XII intact bilaterally and no sensory deficits noted Sensorium / Orientation: awake and alert Motor Exam: strength 5/5 throughout Skin no rashes or lesions noted and no wounds MDM MDM MDM Narrative Medical decision making narrative: 2 view chest x-ray and mitral rotation shows a moderate right-sided pleural effusion consistent with her exam. She had a recent CT scan, I reviewed it, she did not have a lot of ascites there and clearly does now, and her liver is full of metastases, I did not initially think she needed a repeat CT. Her INR is within normal limits, liver enzymes are otherwise slightly elevated similar to what they were before. I discussed with interventional radiology, they are able to fit her in today/now to do a paracentesis and thoracentesis, however radiology upon checking with ultrasound, states she does not have ascites and she does not have a large and of right pleural effusion to do a thoracentesis. Therefore we aborted and repeated her CT of the abdomen/pelvis instead, without IV contrast since she has a low EGFR. It shows a right lower lobe consolidation/infiltrate with parapneumonic effusion that is small. It appears that on her prior imaging, her right lower lobe pneumonia is postobstructive related to the mass. She is almost done with the 3 additional doses of Levaquin. She feels like she is worsening. There is no obvious etiology of her abdominal distention, she has hepatomegaly with multiple metastases that were seen on the prior study, there is no significant change. She was discharged from the hospital on 6L NC, and satting at 95% at rest there now, we tried to take her down to 2 L but she was 86% fairly quickly and more dyspneic. She will need to be readmitted to the hospital. Discussed w/ Dr. Stewart on for pulm. Treated with antibiotics, pt declined aerosols (they make me feel worse). I did discuss with her her biopsy results which confirm small cell lung cancer metastasized to the liver. Lab Data Attestation: I reviewed the patient's lab results. Labs: Laboratory Results - last 24 hr 11/26/21 11/26/2111/26/22 13:40 13:40 13:40 WBC 13.1 H RBC 3.15 L Hgb 8.8 L Hct 26.6 L MCV 84.4 MCH 27.9 MCHC 33.1 RDW Std Deviation 47.8 H RDW Coeff of Flaco 15.4 H Plt Count 343 MPV 9.6 Immature Gran % (Auto) 0.700 Neut % (Auto) 84.6 H Lymph % (Auto) 3.0 L [place] % (Auto) 11.6 H Eos % (Auto) 0.0 Baso % (Auto) 0.1 Absolute Neuts (auto) 11.1 H Absolute Lymphs (auto) 0.39 L Nucleated RBC % 0 Differential Comment SCANNED Diff Path Review May foll Hypochromasia 3+ Target Cells 1+ Rouleaux 2+ PT Cancelled INR Cancelled Sodium 131 L Potassium 3.1 L Chloride 92 L Carbon Dioxide 29.0 Anion Gap 10 BUN 22 H Creatinine 1.78 H Estim Creat Clear Calc 21.87 Est GFR (MDRD) Af Amer 36 L Est GFR (MDRD) Non-Af 30 L BUN/Creatinine Ratio 12.4 Glucose 106 Calcium 8.4 L Total Bilirubin 0.70 Direct Bilirubin 0.22 AST 170 H ALT 87 H Alkaline Phosphatase 274 H Troponin I High Sens 10 Total Protein 6.3 L Albumin 2.7 L Globulin 3.6 11/26/21 14:18 WBC RBC Hgb Hct MCV MCH MCHC RDW Std Deviation RDW Coeff of Flaco Plt Count MPV Immature Gran % (Auto) Neut % (Auto) Lymph % (Auto) [place] % (Auto) Eos % (Auto) Baso % (Auto) Absolute Neuts (auto) Absolute Lymphs (auto) Nucleated RBC % Differential Comment Diff Path Review Hypochromasia Target Cells Rouleaux PT 13.3 INR 1.0 Sodium Potassium Chloride Carbon Dioxide Anion Gap BUN Creatinine Estim Creat Clear Calc Est GFR (MDRD) Af Amer Est GFR (MDRD) Non-Af BUN/Creatinine Ratio Glucose Calcium Total Bilirubin Direct Bilirubin AST ALT Alkaline Phosphatase Troponin I High Sens Total Protein Albumin Globulin Radiography Diagnostic Testing: Clinical Impression(s) from Imaging Studies Chest X-Ray 11/26/21 13:25 IMPRESSION: Right pleural effusion. Electronically Signed: Roel Ayoub MD at 14:58 EDT Reading Location ID and State: [facility] / [place] Tel , Service support , Abdomen Ultrasound 11/26/21 14:47 IMPRESSION: Hepatomegaly with multiple masses visualized within the liver, this demonstrates no significant change in comparison to the prior study. Right lower lobe lung consolidation with small right pleural effusion demonstrates no change in comparison to the prior study. Improved aeration of the left lower lung rodriguez in comparison to the prior study. Moderate-sized hiatus hernia seen. Electronically Signed: Roel Ayoub MD at 16:19 EDT Reading Location ID and State: [address] [place] [address] Tel , Service support , Chest Ultrasound 11/26/21 15:22 IMPRESSION: No sonographic evidence of significant pleural effusion, no intervention was performed. Electronically Signed: Roel Ayoub MD at 16:49 EDT Reading Location ID and State: [address] [place] [address] Tel , Service support , Abdomen/Pelvis CT 11/26/21 15:38 IMPRESSION: Hepatomegaly with multiple masses visualized within the liver, this demonstrates no significant change in comparison to the prior study. Right lower lobe lung consolidation with small right pleural effusion demonstrates no change in comparison to the prior study. Improved aeration of the left lower lung rodriguez in comparison to the prior study. Moderate-sized hiatus hernia seen. 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
[2021-11-26 13:48] LABS: Absolute Lymphocyte Count 0.39 X10^3/uL (0.83-4.51); Absolute Neutrophil Count 11.1 X10^3/uL (2.0-7.7); Basophil# 0.01 X10^3/uL; Basophil% 0.1 % (0-1); Hematocrit 26.6 % (37-47); Hemoglobin 8.8 g/dL (12.0-15.0); Lymphocyte # 0.39 X10^3/ul (0.83-4.51); Mean Corp Hgb Conc 33.1 g/dL (32-36); Mean Corpuscular Hgb 27.9 pg (27.0-32.0); Mean Corpuscular Volume 84.4 fL (81-99); Mean Platelet Vol. 9.6 fl (6.2-12.0); Monocyte# 1.52 X10^3/uL; Monocyte% 11.6 % (0-10); NRBC Flagged by Analyzer 0 % (0-5); Neutrophil # 11.09 X10^3/uL (2.7-7.7); Neutrophil % 84.6 % (47-70); POSITIVE DIFFERENTIAL YES; Platelet Count 343 K/mm3 (150-450); RBC Distribution Width CV 15.4 % (11.6-14.6); RBC Distribution Width SD 47.8 fl (35.1-43.9); Red Blood Count 3.15 M/mm3 (4.2-5.4); White Blood Count 13.1 K/mm3 (4.4-11.0)
[2021-11-26 13:57] LABS: Differential Indicated SCAN CRITERIA MET
[2021-11-26 14:09] LABS: AST(SGOT) 170 U/L (15-37); Alanine Aminotransfer ALT/SGPT 87 U/L (13-56); Albumin, Serum 2.7 g/dL (3.2-5.0); Alkaline Phosphatase 274 U/L (45-117); Anion Gap 10 (5-15); BUN 22 mg/dL (7-18); BUN/Creat Ratio 12.4 RATIO (10-20); Bilirubin, Direct 0.22 mg/dL (0.00-0.30); Calcium,Total 8.4 mg/dL (8.5-10.1); Chloride 92 mmol/L (98-107); Creatinine, Serum 1.78 mg/dL (0.55-1.02); EST Glomerular Filtration Rate 30 mL/min (>60); Est Glom Filt Rate - Afr Amer 36 mL/min (>60); Estimated Creatinine Clearance 21.87 ml/min; Globulin 3.6 g/dL (2.2-4.2); Glucose 106 mg/dL (74-106); Potassium 3.1 mmol/L (3.5-5.1); Protein, Total 6.3 g/dL (6.4-8.2); Sodium Level 131 mmol/L (136-145); Troponin-I HS 10 pg/mL (3.0-54.0)
[2021-11-26 14:11] LABS: Differential Comment SCANNED; Hypochromasia 3+; Rouleaux 2+
[2021-11-26 14:12] LABS: Target Cells 1+
[2021-11-26 14:33] LABS: Prothrombin Time (Protime)PT. 13.3 SECONDS (11.7-14.9)
--- NOTE | 2021-11-26 14:47 | US_ITS ---
INDICATION: abd distension EXAMINATION: CT ABDOMEN AND PELVIS WITHOUT CONTRAST - CT Abdomen And Pelvis W/O Contrast Injection TECHNIQUE: Helically acquired images were obtained of the abdomen and pelvis without oral or IV contrast. A radiation dose optimization technique was used for this scan. IV Contrast dosage and agent: None. Oral contrast: None. COMPARISON: 11/22/2021.. FINDINGS: LOWER CHEST: Prominence right lower lobe consolidation and small underlying pleural effusion is seen this demonstrates no significant increase in comparison to the prior study. Slightly improved aeration of the left lower lung field is seen in comparison to the prior study. No cardiomegaly or pericardial effusion. LIVER: Extensive low-attenuation lesions visualized within the liver demonstrate no significant change in comparison to the prior study. Leg only. GALLBLADDER AND BILIARY TREE: The gallbladder is well-visualized.. No intra- or extrahepatic biliary ductal dilation. PANCREAS: No focal cystic or solid mass. The pancreas is small in size. SPLEEN: The spleen is small in size, no evidence of splenic masses seen. ADRENAL GLANDS: No nodules. KIDNEYS AND URETERS: The right kidney demonstrates no evidence of masses or hydronephrosis. The right kidney is not visualized. PERITONEUM: No ascites or free air. No other fluid collection. BOWEL: No evidence of acute appendicitis. Small type I hiatus hernia is visualized. No stomach or bowel distension. No focal inflammatory change. This abundance of stool visualized in the large bowel. Scattered diverticular disease but no evidence of acute diverticulitis. LYMPH NODES: No enlarged mesenteric or retroperitoneal lymph nodes. VESSELS: Aorta is non-dilated. URINARY BLADDER: Unremarkable. REPRODUCTIVE ORGANS: No pelvic masses. ABDOMINAL WALL: No discrete abdominal or pelvic wall hernia. BONES: No lytic or blastic abnormality. Hemangioma visualized within the L4 vertebral body. Degenerative bone changes. US/Abdomen Limited IMPRESSION: Hepatomegaly with multiple masses visualized within the liver, this demonstrates no significant change in comparison to the prior study. Right lower lobe lung consolidation with small right pleural effusion demonstrates no change in comparison to the prior study. Improved aeration of the left lower lung rodriguez in comparison to the prior study. Moderate-sized hiatus hernia seen. Electronically Signed: Roel Ayoub MD at 16:19 EDT ,
--- NOTE | 2021-11-26 15:15 | ED.RN ---
pt asked about taking her 1500 meds. agreed. she took her home medication from her purse. dilma saldana rn [id number]
--- NOTE | 2021-11-26 15:22 | US_ITS ---
INDICATION: pleural effusion EXAMINATION: Ultrasound US Chest TECHNIQUE: Mustafa scale images were obtained of the right chest. COMPARISON: CT scan of the abdomen and pelvis obtained the same day.. FINDINGS: Hyperechoic echogenicity visualized in the right lower lung field consistent with consolidation, no significant right pleural fluid is seen. US/Chest IMPRESSION: No sonographic evidence of significant pleural effusion, no intervention was performed. Electronically Signed: Roel Ayoub MD at 16:49 EDT ,
--- NOTE | 2021-11-26 15:38 | CT_ITS ---
INDICATION: abd distension EXAMINATION: CT ABDOMEN AND PELVIS WITHOUT CONTRAST - CT Abdomen And Pelvis W/O Contrast Injection TECHNIQUE: Helically acquired images were obtained of the abdomen and pelvis without oral or IV contrast. A radiation dose optimization technique was used for this scan. IV Contrast dosage and agent: None. Oral contrast: None. COMPARISON: 11/22/2021.. FINDINGS: LOWER CHEST: Prominence right lower lobe consolidation and small underlying pleural effusion is seen this demonstrates no significant increase in comparison to the prior study. Slightly improved aeration of the left lower lung field is seen in comparison to the prior study. No cardiomegaly or pericardial effusion. LIVER: Extensive low-attenuation lesions visualized within the liver demonstrate no significant change in comparison to the prior study. Leg only. GALLBLADDER AND BILIARY TREE: The gallbladder is well-visualized.. No intra- or extrahepatic biliary ductal dilation. PANCREAS: No focal cystic or solid mass. The pancreas is small in size. SPLEEN: The spleen is small in size, no evidence of splenic masses seen. ADRENAL GLANDS: No nodules. KIDNEYS AND URETERS: The right kidney demonstrates no evidence of masses or hydronephrosis. The right kidney is not visualized. PERITONEUM: No ascites or free air. No other fluid collection. BOWEL: No evidence of acute appendicitis. Small type I hiatus hernia is visualized. No stomach or bowel distension. No focal inflammatory change. This abundance of stool visualized in the large bowel. Scattered diverticular disease but no evidence of acute diverticulitis. LYMPH NODES: No enlarged mesenteric or retroperitoneal lymph nodes. VESSELS: Aorta is non-dilated. URINARY BLADDER: Unremarkable. REPRODUCTIVE ORGANS: No pelvic masses. ABDOMINAL WALL: No discrete abdominal or pelvic wall hernia. BONES: No lytic or blastic abnormality. Hemangioma visualized within the L4 vertebral body. Degenerative bone changes. CT/Abdomen/Pelvis without Cont IMPRESSION: Hepatomegaly with multiple masses visualized within the liver, this demonstrates no significant change in comparison to the prior study. Right lower lobe lung consolidation with small right pleural effusion demonstrates no change in comparison to the prior study. Improved aeration of the left lower lung rodriguez in comparison to the prior study. Moderate-sized hiatus hernia seen. Electronically Signed: Roel Ayoub MD at 16:19 EDT ,
[2021-11-26] MEDS: Morphine 4 MG/ML Syringe IV (15:56)
--- NOTE | 2021-11-26 16:06 | ED.RN ---
PT MEDICATED PER ORDER. PT CONCERNED DUE TO PAIN WITH FLUSHING. SITE SLIGHTLY RED, SLIGHTLY RAISED. CONCERN FOR INFILTRATION. LINE REMOVED
--- NOTE | 2021-11-26 17:56 | NURSING ---
discussed code status and vs with extrusion press supervisor. aware will be DNRCCA no intub.
--- NOTE | 2021-11-26 17:56 | HP.PCM.HOS_ITS ---
Documented by User: Tata Fuentes NP, [employer] 11/26/21 18:13 HPI - General General Date of Admission: 11/26/21 Date of Service: 11/26/21 Chief Complaint: Shortness of breath, abdominal pain. HPI Narrative KEY EATON, is a 71 F who presents to the emergency room due to shortness of breath and abdominal pain. Patient was discharged 11/23/2021 where she was found to have right perihilar lung mass and extensive liver mets. She was treated for postobstructive pneumonia and discharged home with supplemental oxygen. Patient states 1 day after being home she began to have increased shortness of breath and worsening abdominal pain. She also describes persistent headache. She denies significant cough. Denies fever, chills. She was informed in the emergency room that her recent liver biopsy demonstrates metastatic small cell carcinoma. Patient states she would like to know her options from oncology pr ior to deciding what her goals of care will be. She has a past medical history of paroxysmal atrial fibrillation, chronic kidney disease stage IIIb, chronic asthma/COPD, chronic constipation, hypertension, hyperlipidemia, former tobacco use, anxiety/depression. [facility] Medical History Asthma Atrial fibrillation Chronic anemia Congestive heart failure (CHF) Depression Former smoker GERD (gastroesophageal reflux disease) Lung cancer Metastatic disease Migraines Home Medications acetaminophen 500 mg tablet 1,000 mg PO Q6H PRN Pain 11/20/21 [History Last Taken 11/25/21] alprazolam 0.5 mg tablet 0.5 tab PO TID PRN Anxiety 11/20/21 [History Last Taken 11/24/21] atorvastatin 10 mg tablet 10 tab PO DAILY cholesterol 11/20/21 [History Last Taken 11/25/21] bisacodyl 5 mg tablet,delayed release (Dulcolax (bisacodyl)) 5 mg PO QHS PRN Constipation 11/20/21 [History Last Taken 11/25/21] diltiazem HCl 90 mg tablet 90 tab PO 4X/DAY heart rate 11/20/21 [History Last Taken 11/26/21] furosemide 20 mg tablet 20 tab PO DAILY PRN Edema 11/20/21 [History Last Taken 11/26/21] senna-docusate sodium tablet 2 tab PO DAILY CONSTIPATION 11/20/21 [History Last Taken 11/25/21] sertraline 100 mg tablet 100 tab PO DAILY MOOD 11/20/21 [History Last Taken 11/26/21] cetirizine 10 mg tablet 10 mg PO DAILY allergies 11/21/21 [History Last Taken 11/25/21] cholecalciferol (vitamin D3) 125 mcg (5,000 unit) tablet 125 mcg PO DAILY vitamin 11/21/21 [History Last Taken 11/25/21] magnesium 250 mg tablet 250 mg PO DAILY SUPPLEMENT 11/21/21 [History Last Taken 11/25/21] levofloxacin 750 mg tablet 750 mg PO Q48H #3 tabs 11/23/21 [Rx Last Taken 11/25/21] oxycodone 5 mg capsule 5 mg PO Q4H PRN pain 4 days #20 caps 11/23/21 [Rx Last Taken 11/25/21] aspirin 81 mg chewable tablet 81 mg PO BREAKFAST HEART 11/26/21 [History Last Taken 11/25/21] metoprolol tartrate 25 mg tablet 12.5 mg PO BID BP 11/26/21 [History Last Taken 11/26/21] pantoprazole 40 mg tablet,delayed release 40 mg PO BID GERD 11/26/21 [History Last Taken 11/26/21] Allergy/AdvReac Type Severity Reaction Status Date / Time albuterol Allergy Other Verified 11/26/21 12:44 [[facility] Family History Mother CVA (cerebral vascular accident) Heart disease Hypertension HLD (hyperlipidemia) Father Asthma Hypertension PAF (paroxysmal atrial fibrillation) Surgical History H/O kidney removal History of cardiac radiofrequency ablation Hx of tubal ligation Social History household members: none Smoking Status: Former smoker how long ago did patient quit smoking: Quit 08/30/1983, smoked 1/2 ppd since age 27 until quit. alcohol intake: never substance use type: does not use ROS Constitutional Constitutional: Reports fatigue, malaise and weakness; Denies change in weight, chills or fever(s) Cardiovascular Cardiovascular: Reports edema; Denies chest pain, lightheadedness, palpitations or syncope Respiratory/Chest Respiratory/Chest: Reports cough and dyspnea; Denies wheezing Gastrointestinal Gastrointestinal: Reports abdominal pain; Denies constipation, diarrhea, nausea or vomiting Genitourinary Genitourinary: Denies burning urination, difficulty urinating, dysuria, hematuria, urinary frequency, urinary incontinence or urinary urgency Musculoskeletal Musculoskeletal: Denies back pain, joint pain or muscle weakness Integumentary Integumentary: Denies erythema, lesions, rash or wounds Neurologic Neurologic: Denies abnormal speech, confusion, dizziness, focal weakness, numbness, paresthesias, seizure-like activity or syncope Psychiatric Psychiatric: Reports anxiety and depression Hematologic/Lymphatic Hematologic/Lymphatic: Denies anemia, easy bleeding or easy bruising Allergic/Immunologic Allergic/Immunologic: Denies hives or asthma Vital Signs Vital Signs Vital Signs: 11/26/21 12:30 11/26/21 12:39 11/26/21 12:39 Temperature 97.2 F L Temperature Source Temporal Pulse Rate 91 86 Respiratory Rate 20 H 15 Respiratory Effort Normal Respiratory Pattern Normal Blood Pressure 124/62 H 125/61 H Blood Pressure Mean 82 82 Pulse Ox 94 97 Oxygen Delivery Method Nasal Cannula Nasal Cannula Oxygen Flow Rate (L/min) 8 6 Fraction of Inspired Oxygen (FIO2) 11/26/21 13:45 11/26/21 13:45 11/26/21 14:35 Temperature Temperature Source Pulse Rate 85 88 Respiratory Rate 22 H 15 Respiratory Effort Respiratory Pattern Blood Pressure 114/55 L 125/64 H Blood Pressure Mean 74 84 Pulse Ox 96 96 97 Oxygen Delivery Method Nasal Cannula Nasal Cannula Nasal Cannula Oxygen Flow Rate (L/min) 6 6 6 Fraction of Inspired Oxygen (FIO2) 100 11/26/21 15:20 11/26/21 15:30 11/26/21 17:22 Temperature Temperature Source Pulse Rate 87 91 Respiratory Rate 19 H 20 H Respiratory Effort Respiratory Pattern Blood Pressure 126/64 H 111/51 L Blood Pressure Mean 84 71 Pulse Ox 93 98 86 Oxygen Delivery Method Nasal Cannula Nasal Cannula Nasal Cannula Oxygen Flow Rate (L/min) 6 6 2 Fraction of Inspired Oxygen (FIO2) 11/26/21 17:23 Temperature Temperature Source Pulse Rate 89 Respiratory Rate 26 H Respiratory Effort Respiratory Pattern Blood Pressure 106/50 L Blood Pressure Mean 68 Pulse Ox 98 Oxygen Delivery Method Nasal Cannula Oxygen Flow Rate (L/min) 6 Fraction of Inspired Oxygen (FIO2) Weight Weight: 135 lb Body Mass Index (BMI) 25.4 Physical Exam Const alert and oriented x3 Constitutional Narrative: Fatigued appearing HEENT normocephalic Mouth: dry mucous membranes Eyes PERRL, EOMs intact bilaterally and conjunctivae normal Neck no lymphadenopathy Resp Auscultation: clear to auscultation bilaterally and diminished lung sounds Cardio regular rate, regular rhythm and no murmurs Peripheral Pulses: pulses 2+ throughout GI normal to inspection, nondistended, normoactive bowel sounds, non-tender and non-distended Extremity normal to inspection Skin no rashes or lesions noted Lesions: no lesions Rashes: no rashes Trauma: no lacerations or abrasions Neuro CN's II-XII intact bilaterally, no focal motor deficits, no sensory deficits noted and deep tendon reflexes 2+ bilaterally Psych mental status grossly normal and affect normal Results Lab / Micro Data Result Diagrams: 11/26/21 13:40 11/26/21 13:40 Labs: Laboratory Results - last 24 hr 11/26/21 13:40: PT Cancelled, INR Cancelled 11/26/21 13:40: Sodium 131 L, Potassium 3.1 L, Chloride 92 L, Carbon Dioxide 29.0, Anion Gap 10, BUN 22 H, Creatinine 1.78 H, Estim Creat Clear Calc 21.87, Est GFR (MDRD) Af Amer 36 L, Est GFR (MDRD) Non-Af 30 L, BUN/Creatinine Ratio 12.4, Glucose 106, Calcium 8.4 L, Total Bilirubin 0.70, Direct Bilirubin 0.22, AST 170 H, ALT 87 H, Alkaline Phosphatase 274 H, Troponin I High Sens 10, Total Protein 6.3 L, Albumin 2.7 L, Globulin 3.6 11/26/21 13:40: WBC 13.1 H, RBC 3.15 L, Hgb 8.8 L, Hct 26.6 L, MCV 84.4, MCH 27.9, MCHC 33.1, RDW Std Deviation 47.8 H, RDW Coeff of Flaco 15.4 H, Plt Count 343, MPV 9.6, Immature Gran % (Auto) 0.700, Neut % (Auto) 84.6 H, Lymph % (Auto) 3.0 L, [place] % (Auto) 11.6 H, Eos % (Auto) 0.0, Baso % (Auto) 0.1, Absolute Neuts (auto) 11.1 H, Absolute Lymphs (auto) 0.39 L, Nucleated RBC % 0, Differential Comment SCANNED, Diff Path Review May foll, Hypochromasia 3+, Target Cells 1+, Rouleaux 2+ 11/26/21 14:18: PT 13.3, INR 1.0 Rhythm Strip Rhythm Strip: Sinus Rhythm Rate: 90 Ectopy: None Radiology Impression Chest X-Ray 11/26/21 13:25 IMPRESSION: Right pleural effusion. Electronically Signed: Roel Ayoub MD at 14:58 EDT Reading Location ID and State: [facility] / [place] Tel , Service support , Abdomen Ultrasound 11/26/21 14:47 IMPRESSION: Hepatomegaly with multiple masses visualized within the liver, this demonstrates no significant change in comparison to the prior study. Right lower lobe lung consolidation with small right pleural effusion demonstrates no change in comparison to the prior study. Improved aeration of the left lower lung rodriguez in comparison to the prior study. Moderate-sized hiatus hernia seen. Electronically Signed: Roel Ayoub MD at 16:19 EDT Reading Location ID and State: [facility] / [place] Tel , Service support , Chest Ultrasound 11/26/21 15:22 IMPRESSION: No sonographic evidence of significant pleural effusion, no intervention was performed. Electronically Signed: Roel Ayoub MD at 16:49 EDT Reading Location ID and State: [facility] / [place] Tel , Service support , Abdomen/Pelvis CT 11/26/21 15:38 IMPRESSION: Hepatomegaly with multiple masses visualized within the liver, this demonstrates no significant change in comparison to the prior study. Right lower lobe lung consolidation with small right pleural effusion demonstrates no change in comparison to the prior study. Improved aeration of the left lower lung rodriguez in comparison to the prior study. Moderate-sized hiatus hernia seen. Electronically Signed: Roel Ayoub MD at 16:19 EDT , Assessment & Plan Assessment/Plan (1) Hypoxemia: PLAN: Plan 1.? Acute on chronic hypoxic respiratory failure secondary to recent diagnosis metastatic small cell lung cancer with right pleural effusion and possible postobstructive pneumonia-patient noted to be tachypneic, requiring 6 L nasal cannula to maintain appropriate saturations. Continue supplemental oxygen to maintain O2 at or above 90%. Consult oncology. IV Zosyn and IV vancomycin. Albuterol and DuoNeb aerosols. 2. Abdominal pain-secondary to significant liver mets. As needed pain regimen. Oncology consult as noted above. 3. Paroxysmal atrial fibrillation-continue Cardizem, metoprolol. Recent cardiology consult who recommended baby aspirin, no full anticoagulation at this time. 4. Chronic anemia-stable. 5. Chronic kidney disease stage IIIb- at baseline.? Trend BMP. 6. Chronic asthma/COPD-no exacerbation. 7. Chronic constipation-continue bowel regimen. 8. Hypertension-stable, continue current regimen. 9. Hyperlipidemia-continue statin. 10. Former tobacco use-encouraged cessation. 11. GERD-continue PPI. 12. Anxiety/depression-on as needed Xanax, sertraline. DVT prophylaxis-Lovenox subcu This patient was seen by JUANITO Winters under the supervision of Dr. Saleem. Time spent examining patient, reviewing data and subsequent management of care: 25 minutes Documented by User: Dr. Junito Saleem DO 11/26/21 18:52 HPI - General General Date of Admission: 11/26/21 [facility] Medical History Asthma Atrial fibrillation Chronic anemia Congestive heart failure (CHF) Depression Former smoker GERD (gastroesophageal reflux disease) Lung cancer Metastatic disease Migraines Home Medications acetaminophen 500 mg tablet 1,000 mg PO Q6H PRN Pain 11/20/21 [History Last Taken 11/25/21] alprazolam 0.5 mg tablet 0.5 tab PO TID PRN Anxiety 11/20/21 [History Last Taken 11/24/21] atorvastatin 10 mg tablet 10 tab PO DAILY cholesterol 11/20/21 [History Last Taken 11/25/21] bisacodyl 5 mg tablet,delayed release (Dulcolax (bisacodyl)) 5 mg PO QHS PRN Constipation 11/20/21 [History Last Taken 11/25/21] diltiazem HCl 90 mg tablet 90 tab PO 4X/DAY heart rate 11/20/21 [History Last Taken 11/26/21] furosemide 20 mg tablet 20 tab PO DAILY PRN Edema 11/20/21 [History Last Taken 11/26/21] senna-docusate sodium tablet 2 tab PO DAILY CONSTIPATION 11/20/21 [History Last Taken 11/25/21] sertraline 100 mg tablet 100 tab PO DAILY MOOD 11/20/21 [History Last Taken 11/26/21] cetirizine 10 mg tablet 10 mg PO DAILY allergies 11/21/21 [History Last Taken 11/25/21] cholecalciferol (vitamin D3) 125 mcg (5,000 unit) tablet 125 mcg PO DAILY vitamin 11/21/21 [History Last Taken 11/25/21] magnesium 250 mg tablet 250 mg PO DAILY SUPPLEMENT 11/21/21 [History Last Taken 11/25/21] levofloxacin 750 mg tablet 750 mg PO Q48H #3 tabs 11/23/21 [Rx Last Taken 11/25/21] oxycodone 5 mg capsule 5 mg PO Q4H PRN pain 4 days #20 caps 11/23/21 [Rx Last Taken 11/25/21] aspirin 81 mg chewable tablet 81 mg PO BREAKFAST HEART 11/26/21 [History Last Taken 11/25/21] metoprolol tartrate 25 mg tablet 12.5 mg PO BID BP 11/26/21 [History Last Taken 11/26/21] pantoprazole 40 mg tablet,delayed release 40 mg PO BID GERD 11/26/21 [History Last Taken 11/26/21] Allergy/AdvReac Type Severity Reaction Status Date / Time albuterol Allergy Other Verified 11/26/21 12:44 [From Proventil HFA] Family History Mother CVA (cerebral vascular accident) Heart disease Hypertension HLD (hyperlipidemia) Father Asthma Hypertension PAF (paroxysmal atrial fibrillation) Surgical History H/O kidney removal History of cardiac radiofrequency ablation Hx of tubal ligation Social History household members: none Smoking Status: Former smoker how long ago did patient quit smoking: Quit 08/30/1983, smoked 1/2 ppd since age 27 until quit. alcohol intake: never substance use type: does not use Results Lab / Micro Data Result Diagrams: 11/26/21 13:40 11/26/21 13:40 Assessment & Plan Assessment/Plan (1) Hypoxemia: Charges/Coding Addendum Addendum: Patient seen and examined independently. Data and vitals reviewed. I agree with the above note by the nurse practitioner. HPI: This is a 71-year-old female presents with shortness of breath and abdominal pain. Patient was discharged on November 23 with postobstructive right- sided pneumonia as well as liver mets. Patient underwent biopsy at that time of her liver. Results of which were still pending at the time of discharge. Patient started feeling short of breath when she was discharged later on that day while at home. Patient has just not progressed and presented to the emergency room. Patient had essentially no change in her images today. Patient was complaining of abdominal pain and there is concern the patient may have asci aimee but no ascites was found. Patient being brought in for the ongoing pneumonia as well as recommendations with pulmonology for her pneumonia as well as recommendations from oncology now that the biopsy results have come back showing small cell cancer. Physical exam: Patient is no acute distress and afebrile. No respiratory distress. No conversational dyspnea. Heart rate regular rate and rhythm plus S1-S2 with any murmurs Or Rubs. Lungs Have Crackles in the Right Lower Lobe with Dullness to Percussion. Abdomen Is Soft Slightly Distended but Not Taut. Tender. Extremities Show Trace Lower Extremity Edema around the Left Ankle. Assessment and plan 1. Right lower lobe postobstructive pneumonia Will check urinary antigens for Streptococcus and check a sputum culture. Continue with antibiotics but broaden the coverage with vancomycin and Pipracil/tazobactam Pulmonary toilet Consult pulmonary to see if patient would be a benefit of any additional interventions or to continue with conservative management. 2. Small cell lung cancer: Metastatic Patient has completed some staging test. We will order an MRI with and without contrast of the brain. Patient does complain of headache but that is nonspecific or any sign of brain metastasis. Did discuss the case with Dr. Jauregui, who will see the patient in consultation and discussed treatment options with the patient 3. VTE prophylaxis with enoxaparin CODE STATUS: Patient is DNR Comfort Care arrest no intubation Greater than 35minutes spent of which greater than 50% of time was discussing with the patient at bedside about her diagnosis, pneumonia as well as discussing with oncology about the patient's case. Visit Charges Inpatient E&M: 17711 Init Hosp L3
[2021-11-26] MEDS: Vancomycin IV 1,000 MG/200 ML BAG 200 MG IV (20:08)
[2021-11-26] MEDS: ALPRAZolam 0.5 MG Tablet PO (20:11)
--- NOTE | 2021-11-26 20:24 | PCM.RX.CS ---
Consult Pharmacy has been consulted to manage selected antiobiotic: Vancomycin Type of Consult: New start Suspected Infection: Pneumonia Prior Doses of Antibiotics Received/Current Regimen: 1000mg was ordered in E.R. and that was started at 20:08 Labs: Sodium 131 mmol/L (136-145) L 11/26/21 13:40 Potassium 3.1 mmol/L (3.5-5.1) L 11/26/21 13:40 Chloride 92 mmol/L (98-107) L 11/26/21 13:40 Carbon Dioxide 29.0 mmol/L (21.0-32.0) 11/26/21 13:40 Anion Gap 10 (5-15) 11/26/21 13:40 BUN 22 mg/dL (7-18) H 11/26/21 13:40 Creatinine 1.78 mg/dL (0.55-1.02) H 11/26/21 13:40 Est GFR (MDRD) Af Amer 36 mL/min (>60) L 11/26/21 13:40 Est GFR (MDRD) Non-Af 30 mL/min (>60) L 11/26/21 13:40 BUN/Creatinine Ratio 12.4 RATIO (10-20) 11/26/21 13:40 Glucose 106 mg/dL (74-106) 11/26/21 13:40 Weight used for dosin.3 kg Estimated Creatinine Clearance: 24ml/min Goal Trough: 15-20 mcg/mL Pharmacy Plan for Drug Dosing: Starting 24 hours after the E.R. dose, will begin vanc 500mg IV q24h. Will check a trough level before the 3rd total dose. The patient's CrCl of 24ml/min was calculated using an adjusted body weight of 52.8kg. Pharmacy Service will continue to monitor and adjust dosing as required. Follow-Up Labs: Trough Vancomycin Labs to be done on [date and time ordered]: 11/28/21 19:30
[2021-11-26] MEDS: Acetaminophen 500 MG Tablet 1000 MG PO (20:41)
[2021-11-26] MEDS: oxyCODONE 5 MG Tablet PO (20:41)
[2021-11-26] MEDS: Ondansetron 4 MG/2 ML Vial IV (20:42)
[2021-11-26] MEDS: 0.9% Saline Lock 10 ML Syringe IV (20:42)
[2021-11-26] MEDS: guaiFENesin 1,200 MG Tablet 1200 MG PO (22:01)
[2021-11-26] MEDS: Atorvastatin Calcium 10 MG Tablet PO (22:02)
[2021-11-26] MEDS: dilTIAZem 30 MG Tablet 90 MG PO (22:02)
[2021-11-26] MEDS: Pantoprazole Sodium 40 MG Tablet PO (22:02)
[2021-11-27] VITALS (14 sets, daily range): BP systolic 94–125; BP diastolic 47–79; PULSE 71–95; RESP 16–24; TEMP 36.6–36.9; O2SAT 90–97
[2021-11-27] MEDS: Potassium Chloride Oral Tablet 20 MEQ 40 MEQ PO ×2 (01:20→09:24)
[2021-11-27] MEDS: Acetaminophen 500 MG Tablet 1000 MG PO ×2 (04:18→14:38)
[2021-11-27] MEDS: oxyCODONE 5 MG Tablet PO (04:19)
[2021-11-27] MEDS: 0.9% Saline Lock 10 ML Syringe IV ×3 (04:20→16:22)
[2021-11-27] MEDS: Ondansetron 4 MG/2 ML Vial IV ×2 (05:31→20:03)
[2021-11-27 06:15] LABS: Absolute Lymphocyte Count 0.36 X10^3/uL (0.83-4.51); Absolute Neutrophil Count 10.1 X10^3/uL (2.0-7.7); Basophil# 0.01 X10^3/uL; Basophil% 0.1 % (0-1); Hematocrit 23.9 % (37-47); Hemoglobin 7.9 g/dL (12.0-15.0); Lymphocyte # 0.36 X10^3/ul (0.83-4.51); Mean Corp Hgb Conc 33.1 g/dL (32-36); Mean Corpuscular Volume 84.8 fL (81-99); Mean Platelet Vol. 9.6 fl (6.2-12.0); Monocyte% 11.6 % (0-10); NRBC Flagged by Analyzer 0 % (0-5); Neutrophil # 10.12 X10^3/uL (2.7-7.7); Neutrophil % 84.2 % (47-70); POSITIVE DIFFERENTIAL YES; Platelet Count 330 K/mm3 (150-450); RBC Distribution Width CV 15.2 % (11.6-14.6); RBC Distribution Width SD 47.5 fl (35.1-43.9); Red Blood Count 2.82 M/mm3 (4.2-5.4)
[2021-11-27 06:21] LABS: Differential Indicated SCAN CRITERIA MET
[2021-11-27 06:41] LABS: Differential Comment SCANNED; Hypochromasia 2+
[2021-11-27 06:47] LABS: ALB/GLOB Ratio 0.8 RATIO (0.9-2.4); AST(SGOT) 165 U/L (15-37); Alanine Aminotransfer ALT/SGPT 74 U/L (13-56); Albumin, Serum 2.4 g/dL (3.2-5.0); Alkaline Phosphatase 239 U/L (45-117); Anion Gap 10 (5-15); BUN 25 mg/dL (7-18); BUN/Creat Ratio 13.1 RATIO (10-20); Calcium,Total 8.1 mg/dL (8.5-10.1); Chloride 94 mmol/L (98-107); Creatinine, Serum 1.91 mg/dL (0.55-1.02); EST Glomerular Filtration Rate 28 mL/min (>60); Est Glom Filt Rate - Afr Amer 33 mL/min (>60); Estimated Creatinine Clearance 20.39 ml/min; Globulin 3.1 g/dL (2.2-4.2); Glucose 103 mg/dL (74-106); Potassium 3.1 mmol/L (3.5-5.1); Protein, Total 5.5 g/dL (6.4-8.2); Sodium Level 132 mmol/L (136-145)
[2021-11-27] MEDS: ALPRAZolam 0.5 MG Tablet PO ×2 (07:41→20:04)
--- NOTE | 2021-11-27 08:06 | EX.PCM.CONCC ---
Assessment & Plan Assessment/Plan (1) Lung mass: PLAN: Plan RECOMMENDATIONS: 1. Okay to continue empiric antibiotics for now 2. Continue to wean supplemental oxygen as tolerated. 3. Perform walking oximetry prior to consideration for discharge home. 4. Encourage incentive spirometer use and mobilize patient as tolerated. 5. Await oncology recommendations 6. Doubt bronchoscopy would change clinical course unless palliative stent assessment IMPRESSIONS: 1. Right perihilar lung mass with probable postobstructive pneumonia The patient's CT chest demonstrated a right hilar lung mass which appears to be causing narrowing/occlusion of the right middle and lower lobe with what is likely a component of postobstructive pneumonia and atelectasis. In addition, multiple hypoattenuating lesions were noted throughout the liver, concerning for metastatic disease that have been biopsied and consistent with small cell lung cancer. Doubt bronchoscopy would be of significant clinical help as obstruction would recur quickly with secretions. Could evaluate for possible stent placement, but this could not be completed at this institution. This would be a palliative measure. Recommend patient be evaluated by oncology. If they believe it would be helpful, could proceed with bronchoscopy. Resistant organisms would be a concern, so reasonable to continue Vanco and Zosyn for now. Repeat sputum culture has been ordered. This note was generated with [employer] dictation software. It may contain incorrect words, spelling, and punctuation that were not noted in checking the note before signing. HPI Consult Data Date of Consult: 11/27/21 HPI Narrative Reason for Consultation: Hypoxia HPI Narrative: KEY EATON is a 71 F, with past medical history listed below, who presents to [facility] on 11/26/2021 secondary to progressive shortness of breath and pain. Patient had recently been hospitalized and diagnosed with metastatic small cell lung cancer to the liver. Patient was discharged 3 to 4 days ago, but had worsening symptoms including abdominal tenderness, dyspnea, nausea and chest heaviness. Patient describes the pain primarily in the abdomen, but can go to the right chest and radiate to the left. Patient states that she has palpitations during these episodes. Patient has been using 6 L nasal cannula at home, but increases to 8 L to help with ambulation. Patient was treated for pneumonia on her last visit and discharged on 3 additional days of Levaquin 750 every other day. In the ER, patient was afebrile, but tachypneic at 22 breaths/min. Patient was normotensive, but requiring 6 to 8 L to maintain saturations. Laboratory data showed a white blood cell count of 13.1, hemoglobin of 8.8 and platelets of 343. Chemistry showed a potassium of 3.1, sodium of 131 and a creatinine of 1.78. Liver enzymes were slightly elevated, but coagulation studies were within normal limits. Chest x-ray was suggestive of a right pleural effusion, but subsequent ultrasound showed a moderate size hiatal hernia, right lower lobe consolidation with very little pleural fluid. CT of the abdomen and pelvis showed multiple masses within the liver, but improved aeration of the left chest compared to previous. Telemetry was suggestive of normal sinus rhythm. The ER had considered doing a thoracentesis, but this was aborted given the low volume. Patient was admitted to the floor with a consult to oncology and pulmonary. Patient overall states that her dyspnea is likely mostly secondary to her pain. Patient has had some nausea, but is not reporting any vomiting, melena or hematochezia. Patient is not aware of any fevers or chills. Patient does have a remote history of smoking. Patient denies any alcohol or drug use. 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 Patient is reporting a significant rapid decline in functionality. Patient does state that she has not been able to touch base with oncology to this point. Did discuss bronchoscopy with the patient, but she states that she would only do it if it was going to treat something. Review of systems otherwise negative from a constitutional, HEENT, respiratory, cardiovascular, GI, genitourinary, musculoskeletal, skin, neurologic, psychiatric and hematologic system unless stated above. [facility] Medical History Asthma Atrial fibrillation Chronic anemia Congestive heart failure (CHF) Depression Former smoker GERD (gastroesophageal reflux disease) Lung cancer Metastatic disease Migraines Home Medications acetaminophen 500 mg tablet 1,000 mg PO Q6H PRN Pain 11/20/21 [History Last Taken 11/25/21] alprazolam 0.5 mg tablet 0.5 tab PO TID PRN Anxiety 11/20/21 [History Last Taken 11/24/21] atorvastatin 10 mg tablet 10 tab PO DAILY cholesterol 11/20/21 [History Last Taken 11/25/21] bisacodyl 5 mg tablet,delayed release (Dulcolax (bisacodyl)) 5 mg PO QHS PRN Constipation 11/20/21 [History Last Taken 11/25/21] diltiazem HCl 90 mg tablet 90 tab PO 4X/DAY heart rate 11/20/21 [History Last Taken 11/26/21] furosemide 20 mg tablet 20 tab PO DAILY PRN Edema 11/20/21 [History Last Taken 11/26/21] senna-docusate sodium tablet 2 tab PO DAILY CONSTIPATION 11/20/21 [History Last Taken 11/25/21] sertraline 100 mg tablet 100 tab PO DAILY MOOD 11/20/21 [History Last Taken 11/26/21] cetirizine 10 mg tablet 10 mg PO DAILY allergies 11/21/21 [History Last Taken 11/25/21] cholecalciferol (vitamin D3) 125 mcg (5,000 unit) tablet 125 mcg PO DAILY vitamin 11/21/21 [History Last Taken 11/25/21] magnesium 250 mg tablet 250 mg PO DAILY SUPPLEMENT 11/21/21 [History Last Taken 11/25/21] levofloxacin 750 mg tablet 750 mg PO Q48H #3 tabs 11/23/21 [Rx Last Taken 11/25/21] oxycodone 5 mg capsule 5 mg PO Q4H PRN pain 4 days #20 caps 11/23/21 [Rx Last Taken 11/25/21] aspirin 81 mg chewable tablet 81 mg PO BREAKFAST HEART 11/26/21 [History Last Taken 11/25/21] metoprolol tartrate 25 mg tablet 12.5 mg PO BID BP 11/26/21 [History Last Taken 11/26/21] pantoprazole 40 mg tablet,delayed release 40 mg PO BID GERD 11/26/21 [History Last Taken 11/26/21] Allergy/AdvReac Type Severity Reaction Status Date / Time albuterol Allergy Other Verified 11/26/21 12:44 [From Proventil HFA] Family History Mother CVA (cerebral vascular accident) Heart disease Hypertension HLD (hyperlipidemia) Father Asthma Hypertension PAF (paroxysmal atrial fibrillation) Surgical History H/O kidney removal History of cardiac radiofrequency ablation Hx of tubal ligation Social History household members: none Smoking Status: Former smoker how long ago did patient quit smoking: Quit 08/30/1983, smoked 1/2 ppd since age 27 until quit. alcohol intake: never substance use type: does not use ROS ROS Narrative See HPI Physical Exam Const alert, oriented x3 and no apparent distress General Appearance: cooperative and frail HEENT normocephalic, head/scalp atraumatic and moist oral mucous membranes Eyes PERRL, EOMs intact bilaterally and conjunctivae normal Neck supple General: trachea midline Chest inspection of chest normal Resp normal respiratory effort Resp Narrative: Some splinting noted with deep inhalation Auscultation: diminished lung sounds; Negative for rales, rhonchi or wheezes Cardio regular rate, regular rhythm, S1 normal heart sound, S2 normal heart sound, no murmurs, no rub and no gallops GI Inspection: abdominal distention Palpation: tender; Negative for guarding, rigid or ascites Extremity no clubbing, cyanosis or edema Skin no rashes or lesions noted Neuro oriented x3, CN's II-XII intact bilaterally and moves all extremities Psych cooperative and affect normal Lab / Micro Data Result Diagrams: 11/27/21 05:54 11/27/21 05:54 Labs: Laboratory Results - last 24 hr 11/26/21 13:40: PT Cancelled, INR Cancelled 11/26/21 13:40: Sodium 131 L, Potassium 3.1 L, Chloride 92 L, Carbon Dioxide 29.0, Anion Gap 10, BUN 22 H, Creatinine 1.78 H, Estim Creat Clear Calc 21.87, Est GFR (MDRD) Af Amer 36 L, Est GFR (MDRD) Non-Af 30 L, BUN/Creatinine Ratio 12.4, Glucose 106, Calcium 8.4 L, Total Bilirubin 0.70, Direct Bilirubin 0.22, AST 170 H, ALT 87 H, Alkaline Phosphatase 274 H, Troponin I High Sens 10, Total Protein 6.3 L, Albumin 2.7 L, Globulin 3.6 11/26/21 13:40: WBC 13.1 H, RBC 3.15 L, Hgb 8.8 L, Hct 26.6 L, MCV 84.4, MCH 27.9, MCHC 33.1, RDW Std Deviation 47.8 H, RDW Coeff of Flaco 15.4 H, Plt Count 343, MPV 9.6, Immature Gran % (Auto) 0.700, Neut % (Auto) 84.6 H, Lymph % (Auto) 3.0 L, [place] % (Auto) 11.6 H, Eos % (Auto) 0.0, Baso % (Auto) 0.1, Absolute Neuts (auto) 11.1 H, Absolute Lymphs (auto) 0.39 L, Nucleated RBC % 0, Differential Comment SCANNED, Diff Path Review May foll, Hypochromasia 3+, Target Cells 1+, Rouleaux 2+ 11/26/21 14:18: PT 13.3, INR 1.0 11/27/21 05:54: WBC 12.0 H, RBC 2.82 L, Hgb 7.9 L, Hct 23.9 L, MCV 84.8, MCH 28.0, MCHC 33.1, RDW Std Deviation 47.5 H, RDW Coeff of Flaco 15.2 H, Plt Count 330, MPV 9.6, Immature Gran % (Auto) 1.100 H, Neut % (Auto) 84.2 H, Lymph % (Auto) 3.0 L, Mobile % (Auto) 11.6 H, Eos % (Auto) 0.0, Baso % (Auto) 0.1, Absolute Neuts (auto) 10.1 H, Absolute Lymphs (auto) 0.36 L, Nucleated RBC % 0, Differential Comment SCANNED, Hypochromasia 2+ 11/27/21 05:54: Sodium 132 L, Potassium 3.1 L, Chloride 94 L, Carbon Dioxide 28.0, Anion Gap 10, BUN 25 H, Creatinine 1.91 H, Estim Creat Clear Calc 20.39, Est GFR (MDRD) Af Amer 33 L, Est GFR (MDRD) Non-Af 28 L, BUN/Creatinine Ratio 13.1, Glucose 103, Calcium 8.1 L, Total Bilirubin 0.90, AST 165 H, ALT 74 H, Alkaline Phosphatase 239 H, Total Protein 5.5 L, Albumin 2.4 L, Globulin 3.1, Albumin/Globulin Ratio 0.8 L Micro: Microbiology 11/27/21 00:03 Urine, Clean Catch Streptococcus pneumoniae Antigen (M - Final Rhythm Strip Rhythm Strip: Sinus Rhythm Rate: 90 Ectopy: None Radiology Impression Chest X-Ray 11/26/21 13:25 IMPRESSION: Right pleural effusion. Electronically Signed: Roel Ayoub MD at 14:58 EDT Reading Location ID and State: [facility] / [place] Tel , Service support , Abdomen Ultrasound 11/26/21 14:47 IMPRESSION: Hepatomegaly with multiple masses visualized within the liver, this demonstrates no significant change in comparison to the prior study. Right lower lobe lung consolidation with small right pleural effusion demonstrates no change in comparison to the prior study. Improved aeration of the left lower lung rodriguez in comparison to the prior study. Moderate-sized hiatus hernia seen. Electronically Signed: Roel Ayoub MD at 16:19 EDT Reading Location ID and State: [facility] / [place] Tel , Service support , Chest Ultrasound 11/26/21 15:22 IMPRESSION: No sonographic evidence of significant pleural effusion, no intervention was performed. Electronically Signed: Roel Ayoub MD at 16:49 EDT Reading Location ID and State: [facility] / [place] Tel , Service support , Abdomen/Pelvis CT 11/26/21 15:38 IMPRESSION: Hepatomegaly with multiple masses visualized within the liver, this demonstrates no significant change in comparison to the prior study. Right lower lobe lung consolidation with small right pleural effusion demonstrates no change in comparison to the prior study. Improved aeration of the left lower lung rodriguez in comparison to the prior study. Moderate-sized hiatus hernia seen. Electronically Signed: Roel Ayoub MD at 16:19 EDT Reading Location ID and State: [facility] / [place] Tel , Service support , Charges/Coding Visit Charges Inpatient E&M: 81243 Init Hosp L2
[2021-11-27] MEDS: Cholecalciferol (Vit D3) 125 MCG CAPSULE (5,000 UNITS) PO (08:18)
[2021-11-27] MEDS: Pantoprazole Sodium 40 MG Tablet PO ×2 (08:18→22:12)
[2021-11-27] MEDS: dilTIAZem 30 MG Tablet 90 MG PO ×4 (08:18→22:12)
[2021-11-27] MEDS: Loratadine 10 MG Tablet PO (08:18)
[2021-11-27] MEDS: Sertraline 100 MG Tablet PO (08:19)
[2021-11-27] MEDS: guaiFENesin 1,200 MG Tablet 1200 MG PO ×2 (08:19→22:12)
[2021-11-27] MEDS: Enoxaparin 30 MG/0.3 ML Syringe SC (08:20)
--- NOTE | 2021-11-27 09:00 | MRI_ITS ---
STUDY: MRI BRAIN WITH AND WITHOUT CONTRAST REASON FOR EXAM: Female, 71 years old. Metastatic small cell- NEW diagnosis TECHNIQUE: Standardized multiplanar fat and water weighted pulse sequences were obtained. IV 12ml Dotarem was administered for the contrast portion of the examination. COMPARISON: None. FINDINGS: A 1.1 cm circumferentially enhancing lesions visualized in the anteromedial aspect of the right cerebellum best visualized on the DWI series 4 image 8. A 0.4 cm non-enhancing lesion is visualized in the posterior medial right parietal lobe best visualized on the DWI series 4 image 19. This lesion is not appreciated on the T1-weighted images or on the contrast enhanced studies. No optimally evaluated on the ADC map. A 0.4 cm non-enhancing lesion is visualized in the posterior superior right cerebellum best visualized on the DWI series 4 image 6, this lesion demonstrates signal dropout on the ADC map.This lesion is not appreciated on the T1-weighted images or on the contrast enhanced studies. No other areas of abnormal signal intensity or abnormal enhancement visualized within the brain parenchyma. No areas of abnormal signal intensity or enhancement visualized within the diploic space. Normal size of the ventricles and extra-axial spaces for the patient''s age. Normal white matter tracts of the supratentorial brain. Normal bilateral basal ganglia. Normal thalami. There is no extra-axial fluid accumulation. Normal flow voids within the major intracranial circulation suggesting patency by spin echo criteria. Normal venous enhancement. There is no enhancing intra-axial or extra-axial abnormality. Normal sella turcica, pituitary gland, infundibular stalk, optic chiasm and hypothalamus. Normal tectal plate and pineal gland. Normal midbrain, ivelisse and medulla. Normal cerebellum. Normal basal cisterns. Normal bilateral temporal bones. Normal bilateral internal auditory canals. No demonstrated orbital abnormality, within the constraints of a routine brain study. Normal visualized paranasal sinuses. Normal calvarium and skull base. Normal visualized soft tissue structures. Normal visualized upper cervical spine. MRI/Brain W/WO Contrast IMPRESSION: A 1.1 cm faintly circumferential enhancing lesion visualized in the right cerebellum suggestive of metastasis. Two lesions are visualized in the cortical guidewire in that demonstrate increased signal on DWI that could either represent a small metastasis or subtle lacunar infarcts measuring less than 0.4 cm. Electronically Signed: Roel Ayoub MD at 16:26 EDT ,
--- NOTE | 2021-11-27 10:50 | PN.HOSP_ITS ---
Documented by User: Tata Fuentes NP, [facility]OOM MAN-C 11/27/21 11:00 Subjective Subjective Patient seen and examined. Reports persistent headache. Patient complains of abdominal pain and shortness of breath. Shortness of breath worsened with lying flat. Patient states pain medication brings her abdominal pain from a 10 to 7. Objective Data Objective Data Vital Signs: Vital Signs Temp Pulse Resp BP Pulse Ox O2 Del Method O2 Flow Rate 98.4 F 92 18 94/79 95 Nasal Cannula 6 11/27/21 08:20 11/27/21 08:20 11/27/21 08:20 11/27/21 08:20 11/27/21 09:42 11/27/21 09:42 11/27/21 09:42 FiO2 100 11/26/21 13:45 Oxygen Flow Rate (L/min) 6 Oxygen Delivery Method Nasal Cannula Weight: 132 lb 15.02 oz Body Mass Index (BMI) 25.1 Intake & Output: Intake and Output for Last 24 Hours 11/25/21 11/26/21 11/27/21 23:59 23:59 23:59 Intake Total 300 / 300 450 / 450 Balance 300 / 300 450 / 450 Lab / Micro Data Result Diagrams: 11/27/21 05:54 11/27/21 05:54 Labs: Laboratory Results - last 24 hr 11/26/21 13:40: PT Cancelled, INR Cancelled 11/26/21 13:40: Sodium 131 L, Potassium 3.1 L, Chloride 92 L, Carbon Dioxide 29.0, Anion Gap 10, BUN 22 H, Creatinine 1.78 H, Estim Creat Clear Calc 21.87, Est GFR (MDRD) Af Amer 36 L, Est GFR (MDRD) Non-Af 30 L, BUN/Creatinine Ratio 12.4, Glucose 106, Calcium 8.4 L, Total Bilirubin 0.70, Direct Bilirubin 0.22, AST 170 H, ALT 87 H, Alkaline Phosphatase 274 H, Troponin I High Sens 10, Total Protein 6.3 L, Albumin 2.7 L, Globulin 3.6 11/26/21 13:40: WBC 13.1 H, RBC 3.15 L, Hgb 8.8 L, Hct 26.6 L, MCV 84.4, MCH 27.9, MCHC 33.1, RDW Std Deviation 47.8 H, RDW Coeff of Flaco 15.4 H, Plt Count 343, MPV 9.6, Immature Gran % (Auto) 0.700, Neut % (Auto) 84.6 H, Lymph % (Auto) 3.0 L, Pettis % (Auto) 11.6 H, Eos % (Auto) 0.0, Baso % (Auto) 0.1, Absolute Neuts (auto) 11.1 H, Absolute Lymphs (auto) 0.39 L, Nucleated RBC % 0, Differential Comment SCANNED, Diff Path Review May foll, Hypochromasia 3+, Target Cells 1+, Rouleaux 2+ 11/26/21 14:18: PT 13.3, INR 1.0 11/27/21 05:54: WBC 12.0 H, RBC 2.82 L, Hgb 7.9 L, Hct 23.9 L, MCV 84.8, MCH 28.0, MCHC 33.1, RDW Std Deviation 47.5 H, RDW Coeff of Flaco 15.2 H, Plt Count 330, MPV 9.6, Immature Gran % (Auto) 1.100 H, Neut % (Auto) 84.2 H, Lymph % (Auto) 3.0 L, Pettis % (Auto) 11.6 H, Eos % (Auto) 0.0, Baso % (Auto) 0.1, Absolute Neuts (auto) 10.1 H, Absolute Lymphs (auto) 0.36 L, Nucleated RBC % 0, Differential Comment SCANNED, Hypochromasia 2+ 11/27/21 05:54: Sodium 132 L, Potassium 3.1 L, Chloride 94 L, Carbon Dioxide 28.0, Anion Gap 10, BUN 25 H, Creatinine 1.91 H, Estim Creat Clear Calc 20.39, Est GFR (MDRD) Af Amer 33 L, Est GFR (MDRD) Non-Af 28 L, BUN/Creatinine Ratio 13.1, Glucose 103, Calcium 8.1 L, Total Bilirubin 0.90, AST 165 H, ALT 74 H, Alkaline Phosphatase 239 H, Total Protein 5.5 L, Albumin 2.4 L, Globulin 3.1, Albumin/Globulin Ratio 0.8 L Micro: Microbiology 11/27/21 00:03 Urine, Clean Catch Streptococcus pneumoniae Antigen (M - Final Radiography Diagnostic Testing: Radiology Impression Chest X-Ray 11/26/21 13:25 IMPRESSION: Right pleural effusion. Electronically Signed: Roel Ayoub MD at 14:58 EDT Reading Location ID and State: [facility] / [place] Tel , Service support , Abdomen Ultrasound 11/26/21 14:47 IMPRESSION: Hepatomegaly with multiple masses visualized within the liver, this demonstrates no significant change in comparison to the prior study. Right lower lobe lung consolidation with small right pleural effusion demonstrates no change in comparison to the prior study. Improved aeration of the left lower lung rodriguez in comparison to the prior study. Moderate-sized hiatus hernia seen. Electronically Signed: Roel Ayoub MD at 16:19 EDT Reading Location ID and State: [address] [place] [address] Tel , Service support , Chest Ultrasound 11/26/21 15:22 IMPRESSION: No sonographic evidence of significant pleural effusion, no intervention was performed. Electronically Signed: Roel Ayoub MD at 16:49 EDT Reading Location ID and State: [address] [place] [address] Tel , Service support , Abdomen/Pelvis CT 11/26/21 15:38 IMPRESSION: Hepatomegaly with multiple masses visualized within the liver, this demonstrates no significant change in comparison to the prior study. Right lower lobe lung consolidation with small right pleural effusion demonstrates no change in comparison to the prior study. Improved aeration of the left lower lung rodriguez in comparison to the prior study. Moderate-sized hiatus hernia seen. Electronically Signed: Roel Ayoub MD at 16:19 EDT Reading Location ID and State: [facility] / [place] Tel , Service support , Rhythm Strip Rhythm Strip: Sinus Rhythm Rate: 90 Ectopy: None Physical Exam Const alert, oriented x3 and no apparent distress HEENT normocephalic Mouth: dry mucous membranes Eyes PERRL, EOMs intact bilaterally and conjunctivae normal Neck no lymphadenopathy Resp clear to auscultation bilaterally Auscultation: diminished lung sounds Cardio regular rate, regular rhythm and no murmurs Peripheral Pulses: pulses 2+ throughout GI normal to inspection, nondistended, normoactive bowel sounds and non-distended Palpation: tender Extremity normal to inspection Skin no rashes or lesions noted Lesions: no lesions Rashes: no rashes Trauma: no lacerations or abrasions Neuro CN's II-XII intact bilaterally, no focal motor deficits, no sensory deficits noted and deep tendon reflexes 2+ bilaterally Psych mental status grossly normal and affect normal Assessment & Plan Assessment/Plan (1) Metastatic lung cancer (metastasis from lung to other site): PLAN: Plan 1. Acute on chronic hypoxic respiratory failure secondary to recent diagnosis metastatic small cell lung cancer with right pleural effusion and po stobstructive pneumonia-patient noted to be tachypneic on admission, requiring 6 L nasal cannula to maintain appropriate saturations. Continue supplemental oxygen to maintain O2 at or above 90%. Consult oncology and pulmonary medicine. IV Zosyn and IV vancomycin. Albuterol and DuoNeb aerosols. Sputum culture ordered. 2. Metastatic small cell lung cancer-intractable abdominal pain. Liver mets. MRI of brain pending due to persistent headache. Oncology consulted. 3. Paroxysmal atrial fibrillation-continue Cardizem, metoprolol. Recent cardiology consult who recommended baby aspirin, no full anticoagulation at this time. 4. Chronic anemia-stable. Trend CBC. 5. Chronic kidney disease stage IIIb- at baseline. Trend BMP. 6. Chronic asthma/COPD-no exacerbation. 7. Chronic constipation-continue bowel regimen. 8. Hypertension-stable, continue current regimen. 9. Hyperlipidemia-continue statin. 10. Former tobacco use-encouraged cessation. 11. GERD-continue PPI. 12. Anxiety/depression-on as needed Xanax, sertraline. DVT prophylaxis-Lovenox subcu This patient was seen by JUANITO Winters under the supervision of Dr. Saleem. Time spent examining patient, reviewing data and subsequent management of care: 14 minutes Documented by User: Dr. Junito Saleem DO 11/27/21 13:03 Objective Data Lab / Micro Data Result Diagrams: 11/27/21 05:54 11/27/21 05:54 Assessment & Plan Assessment/Plan (1) Metastatic lung cancer (metastasis from lung to other site): Charges/Coding Addendum Addendum: Patient seen and examined independently.? Data and vitals reviewed.? I agree with the above note by the nurse practitioner. HPI: Still with headache. Still with abdominal pain and distention. +BM. No vomiting. Physical exam: Patient is no acute distress and afebrile.? No respiratory distress.? No conversational dyspnea.? Heart rate regular rate and rhythm plus S1-S2 with any murmurs Or Rubs.? Lungs Have Crackles in the Right Lower Lobe with Dullness to Percussion.? Abdomen Is Soft Slightly Distended but Not Taut.? Tender.? Extremities Show Trace Lower Extremity Edema around the Left Ankle. Assessment and plan 1.? Right lower lobe postobstructive pneumonia Will check urinary antigens for Streptococcus and check a sputum culture. Continue with antibiotics but broaden the coverage with vancomycin and Pipracil/tazobactam Pulmonary toilet Pulm consult appreciated 2.? Small cell lung cancer: Metastatic Patient has completed some staging test.? We will order an MRI with and without contrast of the brain.? Patient does complain of headache but that is nonspecific or any sign of brain metastasis. Did discuss the case with Dr. Jauregui, who will see the patient in consultation and discussed treatment options with the patient 3.? VTE prophylaxis with enoxaparin 4. Abdominal pain: may be due to hepatomegaly with metastasis optimize pain control 5. Headache unclear etiology MRI brain pending. CODE STATUS: Patient is DNR Comfort Care arrest no intubation Visit Charges Inpatient E&M: 70928 Subs Hosp L2
--- NOTE | 2021-11-27 11:59 | CASEMGMT ---
Addendum entered by Ritu Kim 11/27/21 14:24: Received returned call from Michelle at [facility], they are able to accept pt. Will plan on a SOC on Thursday pending hospital course. Original Note: ELAINE ROACH Readmission Note Previous Admission:? 11/21/21-11/23/21?? Diagnosis:?PAF with RVR, acute on chronic anemia, new lung cancer diagnosis DC Disposition: Home Current Admission? Current diagnosis:?pneumonia Pt presented to ER from home with dyspnea. ELAINE ROACH in to pt room. Pt expresses concerns of not having written instructions for her oxygen at home. TC to [employer] to verify oxygen rx as well as how high pt concentrator goes at home. Pt states she has not had any follow up appts. She was planning on seeing her PCP today and had an appt next Thursday either with or , she cannot remember which. Pt reports she was taking her medications as ordered. Discussed with patient plan after this hospital stay. Pt states she feels she can return home and would like to. She states she does not want any therapy in her home. Discussed [facility] SN. Pt is agreeable to this. Pt has not yet worked with therapy this stay. Discussed we can amend our plan at anytime pending her hospitalization course. Patient was provided a list of [facility] providers including quality and resource use data and consistent with the patient?s preferred geographic region, medical needs, and insurance network. The patient?s preferred provider is [facility]. TC to Michelle at [facility], referral made via . Will await acceptance. DC PLAN: Home with [facility] SN.
[2021-11-27 12:18] LABS: Pathologist Review Reviewed
[2021-11-27] MEDS: LORazepam 2 MG/ML Syringe 1 MG IV (14:34)
[2021-11-27] MEDS: oxyCODONE 5 MG Tablet 10 MG PO ×2 (14:38→20:03)
--- NOTE | 2021-11-27 17:20 | CON.PCM.ON_ITS ---
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 Patient has radiologic evidence for regional mediastinal lymph node metastases with compression atelectasis of the right lower lobe, pleural metastases and at least 1 metastatic lesion in the posterior fossa causing headache. She is quite symptomatic and moribund from systemic disease more so than Brain metastases. Chronic comorbid conditions: Hypertension, dyslipidemia, acute on chronic renal insufficiency. Plan: 1. Supportive treatment as already in progress by primary service with pain control and supplemental oxygen and discharge planning. Attempt to optimize kidney function prior to [place] based therapy by maintaining adequate hydration and input output balance. Discussed with dr. Saleem. 2. Patient will need to complete staging with a bone scan, nonurgent can be done after discharge. 3. Central venous access for systemic therapy, discussed with . 4. Systemic therapy, tentatively planned to start Thursday, December 02, 2021 with combination chemotherapy immune therapy (carboplatin, etoposide, atezolizumab). Benefits and main toxicities from treatment were discussed with the patient, she is scheduled for a formal anticancer teaching session Thursday, December 02, 2021. 5. Goal of treatment is palliative plus or minus survival benefit. 6. Brain metastases, less morbid at this stage then the systemic disease but will need to be addressed if she becomes stable following systemic therapy. In the interim we will start dexamethasone 4 mg every morning and referred to radiation oncology. Discussed with Dr. Farley. 7. Advanced directives discussed patient requested DNR if her condition continues to deteriorate Patient was seen with her [id number], impression and recommendations as above discussed. Mark Jauregui MD Block Cutter, [facility] Divisions of Medical Oncology & Hematology Department of Internal Medicine [place] [id number] This note was generated using a voice recognition system software. Although it was reviewed by the author prior to finalization, it may still contain incorrect words, spelling, and punctuation that were not noted when reviewing prior to saving. If a clinically significant typo or inaccurately typed phrase is noted, please notify the author. (2) Liver metastases: Status: Acute Code(s): C78.7 - Secondary malignant neoplasm of liver and intrahepatic bile duct (3) Pleural metastasis: Status: Acute Code(s): C78.2 - Secondary malignant neoplasm of pleura (4) Regional lymph node metastasis present: Status: Acute Code(s): C77.9 - Secondary and unspecified malignant neoplasm of lymph node, unspecified (5) Pain, cancer: Status: Acute Code(s): G89.3 - Neoplasm related pain (acute) (chronic) (6) Brain metastasis: Status: Acute Code(s): C79.31 - Secondary malignant neoplasm of brain HPI Consult Data Date of Service:: 11/27/21 PCP / Referring Provider: Dr. Conner Daley MD Attending: Dr. Junito Saleem DO Chief Complaint Chief Complaint: Dyspnea and abdominal pain History of Present Illness History of Present Illness: 71-year-old female, ex-smoker presented with progressively increasing dyspnea abdominal pain and distention over the course of a few weeks. November 21, 2021 CTA chest: IMPRESSION: 1.? Right perihilar lung cancer with metastatic pleural effusion, local lymph node metastases, and extensive liver metastases.? There is postobstructive right lower lobe atelectasis and consolidation. 2.? No finding of pulmonary embolus. November 21, 2021 CT abdomen and pelvis: IMPRESSION: Diffuse hepatomegaly with multiple hypodense solid nodules scattered throughout both lobes of the liver in keeping with diffuse metastasis. Possible small gallstones. Dense consolidation of the right lower lobe with tiny bilateral pleural effusions. November 22, 2021 Right lobe of liver, CT-guided core biopsy: Metastatic small cell carcinoma. November 27, 2021 brain MRI: IMPRESSION: A 1.1 cm faintly circumferential enhancing lesion visualized in the right cerebellum suggestive of metastasis. Two lesions are visualized in the cortical guidewire in that demonstrate increased signal on DWI that could either represent a small metastasis or subtle lacunar infarcts measuring less than 0.4 cm. Advanced Directives Power of Internship Coordinator: Yes Living Will: Yes [facility] Medical History (Updated 11/28/21 @ 07:[address] Junito Saleem DO) Asthma Atrial fibrillation Brain metastasis Chronic anemia Congestive heart failure (CHF) Depression Former smoker GERD (gastroesophageal reflux disease) Liver metastases Lung cancer Metastatic disease Migraines Pain, cancer Pleural metastasis Regional lymph node metastasis present Small cell lung cancer Home Medications acetaminophen 500 mg tablet 1,000 mg PO Q6H PRN Pain 11/20/21 [History Last Taken 11/25/21] alprazolam 0.5 mg tablet 0.5 tab PO TID PRN Anxiety 11/20/21 [History Last Taken 11/24/21] atorvastatin 10 mg tablet 10 tab PO DAILY cholesterol 11/20/21 [History Last Taken 11/25/21] bisacodyl 5 mg tablet,delayed release (Dulcolax (bisacodyl)) 5 mg PO QHS PRN Constipation 11/20/21 [History Last Taken 11/25/21] diltiazem HCl 90 mg tablet 90 tab PO 4X/DAY heart rate 11/20/21 [History Last Taken 11/26/21] furosemide 20 mg tablet 20 tab PO DAILY PRN Edema 11/20/21 [History Last Taken 11/26/21] senna-docusate sodium tablet 2 tab PO DAILY CONSTIPATION 11/20/21 [History Last Taken 11/25/21] sertraline 100 mg tablet 100 tab PO DAILY MOOD 11/20/21 [History Last Taken 11/26/21] cetirizine 10 mg tablet 10 mg PO DAILY allergies 11/21/21 [History Last Taken 11/25/21] cholecalciferol (vitamin D3) 125 mcg (5,000 unit) tablet 125 mcg PO DAILY vitamin 11/21/21 [History Last Taken 11/25/21] magnesium 250 mg tablet 250 mg PO DAILY SUPPLEMENT 11/21/21 [History Last Taken 11/25/21] levofloxacin 750 mg tablet 750 mg PO Q48H #3 tabs 11/23/21 [Rx Last Taken 11/25/21] oxycodone 5 mg capsule 5 mg PO Q4H PRN pain 4 days #20 caps 11/23/21 [Rx Last Taken 11/25/21] aspirin 81 mg chewable tablet 81 mg PO BREAKFAST HEART 11/26/21 [History Last Taken 11/25/21] metoprolol tartrate 25 mg tablet 12.5 mg PO BID BP 11/26/21 [History Last Taken 11/26/21] pantoprazole 40 mg tablet,delayed release 40 mg PO BID GERD 11/26/21 [History Last Taken 11/26/21] Allergy/AdvReac Type Severity Reaction Status Date / Time albuterol Allergy Other Verified 11/26/21 12:44 [From Proventil HFA] Family History Mother CVA (cerebral vascular accident) Heart disease Hypertension HLD (hyperlipidemia) Father Asthma Hypertension PAF (paroxysmal atrial fibrillation) Surgical History H/O kidney removal History of cardiac radiofrequency ablation Hx of tubal ligation Social History household members: none Smoking Status: Former smoker how long ago did patient quit smoking: Quit 08/30/1983, smoked 1/2 ppd since age 27 until quit. alcohol intake: never substance use type: does not use ROS Constitutional Constitutional: Reports fatigue; Denies fever(s), night sweats, poor appetite or weight loss ENT HEENT: Denies dysphagia Cardiovascular Cardiovascular: Reports dyspnea and dyspnea at rest; Denies chest pain or edema Respiratory/Chest Respiratory/Chest: Reports cough and dyspnea; Denies hemoptysis or wheezing Gastrointestinal Gastrointestinal: Reports abdominal pain and bloating; Denies change in bowel habits, hematochezia, melena, nausea or vomiting Genitourinary Genitourinary: Denies dysuria or hematuria Musculoskeletal Musculoskeletal: Denies back pain Integumentary Integumentary: Denies new lesions or rash Neurologic Neurologic: Reports headache(s); Denies abnormal speech, behavior changes, focal weakness, numbness or other visual disturbances Psychiatric Psychiatric: Reports anxiety Endocrine Endocrinology: Denies flushing Hematologic/Lymphatic Hematologic/Lymphatic: Denies easy bleeding or lymphadenopathy Physical Exam Const alert and oriented x3 General Appearance: cooperative and ill appearing HEENT normocephalic Eyes no scleral icterus Neck no lymphadenopathy and no JVD Lymph Lymphatic: no lymphadenopathy noted Resp Auscultation: diminished lung sounds right lower Cardio regular rate and regular rhythm GI soft to palpation Palpation: hepatomegaly; Negative for splenomegaly Extremity no clubbing, cyanosis or edema Skin no rashes or lesions noted General Skin Exam: ecchymosis Neuro CN's II-XII intact bilaterally, moves all extremities and no focal motor deficits Psych mental status grossly normal Vital Signs Temperature 97.9 F 11/27/21 16:25 Temperature Source Oral 11/27/21 16:25 Pulse Rate 82 11/27/21 16:25 Pulse Strength Normal (2+) 11/27/21 08:20 Respiratory Rate 18 11/27/21 16:25 Respiratory Effort Non-Labored 11/27/21 16:25 Respiratory Depth Normal 11/27/21 16:25 Respiratory Pattern Tachypnea 11/27/21 16:25 Blood Pressure 105/54 L 11/27/21 16:25 Blood Pressure Mean 71 11/27/21 16:25 Blood Pressure Source Monitor 11/27/21 16:25 Blood Pressure Position Semi-Fowlers 11/27/21 16:25 Blood Pressure Location Left Arm 11/27/21 16:25 Pulse Ox 94 11/27/21 16:25 Oxygen Delivery Method Nasal Cannula 11/27/21 16:25 Oxygen Flow Rate (L/min) 5 11/27/21 16:25 Fraction of Inspired Oxygen (FIO2) 100 11/26/21 13:45 Laboratory Results - last 24 hr 11/26/21 13:40: Diff Path Review Reviewed 11/27/21 05:54: WBC 12.0 H, RBC 2.82 L, Hgb 7.9 L, Hct 23.9 L, MCV 84.8, MCH 28.0, MCHC 33.1, RDW Std Deviation 47.5 H, RDW Coeff of Flaco 15.2 H, Plt Count 330, MPV 9.6, Immature Gran % (Auto) 1.100 H, Neut % (Auto) 84.2 H, Lymph % (Auto) 3.0 L, Day % (Auto) 11.6 H, Eos % (Auto) 0.0, Baso % (Auto) 0.1, Absolute Neuts (auto) 10.1 H, Absolute Lymphs (auto) 0.36 L, Nucleated RBC % 0, Differential Comment SCANNED, Hypochromasia 2+ 11/27/21 05:54: Sodium 132 L, Potassium 3.1 L, Chloride 94 L, Carbon Dioxide 28.0, Anion Gap 10, BUN 25 H, Creatinine 1.91 H, Estim Creat Clear Calc 20.39, Est GFR (MDRD) Af Amer 33 L, Est GFR (MDRD) Non-Af 28 L, BUN/Creatinine Ratio 13.1, Glucose 103, Calcium 8.1 L, Total Bilirubin 0.90, AST 165 H, ALT 74 H, Alkaline Phosphatase 239 H, Total Protein 5.5 L, Albumin 2.4 L, Globulin 3.1, Albumin/Globulin Ratio 0.8 L Microbiology 11/27/21 00:03 Urine, Clean Catch Streptococcus pneumoniae Antigen (M - Final I personally reviewed patient's CT scan images of the chest, abdomen and pelvis and brain MRI and concur with reported findings. Diagnostic Data Chest X-Ray 11/26/21 13:25 IMPRESSION: Right pleural effusion. Electronically Signed: Roel Ayoub MD at 14:58 EDT Reading Location ID and State: [facility] / [place] Tel , Service support , Abdomen Ultrasound 11/26/21 14:47 IMPRESSION: Hepatomegaly with multiple masses visualized within the liver, this demonstrates no significant change in comparison to the prior study. Right lower lobe lung consolidation with small right pleural effusion demonstrates no change in comparison to the prior study. Improved aeration of the left lower lung rodriguez in comparison to the prior study. Moderate-sized hiatus hernia seen. Electronically Signed: Roel Ayoub MD at 16:19 EDT Reading Location ID and State: [facility] / [place] Tel , Service support , Chest Ultrasound 11/26/21 15:22 IMPRESSION: No sonographic evidence of significant pleural effusion, no intervention was performed. Electronically Signed: Roel Ayoub MD at 16:49 EDT Reading Location ID and State: [facility] / [place] Tel , Service support , Abdomen/Pelvis CT 11/26/21 15:38 IMPRESSION: Hepatomegaly with multiple masses visualized within the liver, this demonstrates no significant change in comparison to the prior study. Right lower lobe lung consolidation with small right pleural effusion demonstrates no change in comparison to the prior study. Improved aeration of the left lower lung rodriguez in comparison to the prior study. Moderate-sized hiatus hernia seen. Electronically Signed: Roel Ayoub MD at 16:19 EDT Reading Location ID and State: [facility] / [place] Tel , Service support , Brain MRI 11/27/21 09:00 IMPRESSION: A 1.1 cm faintly circumferential enhancing lesion visualized in the right cerebellum suggestive of metastasis. Two lesions are visualized in the cortical guidewire in that demonstrate increased signal on DWI that could either represent a small metastasis or subtle lacunar infarcts measuring less than 0.4 cm. Electronically Signed: Roel Ayoub MD at 16:26 EDT ,
[2021-11-27] MEDS: dexAMETHasone 4 MG Tablet PO (17:46)
[2021-11-27] MEDS: Vancomycin IV 500 MG/100 ML BAG 100 MG IV (20:47)
[2021-11-27] MEDS: Atorvastatin Calcium 10 MG Tablet PO (22:12)
[2021-11-28] VITALS (12 sets, daily range): BP systolic 97–115; BP diastolic 52–61; PULSE 67–99; RESP 16–18; TEMP 36.6–37.1; O2SAT 79–99
[2021-11-28] MEDS: oxyCODONE 5 MG Tablet 10 MG PO ×5 (00:33→22:09)
[2021-11-28] MEDS: Acetaminophen 500 MG Tablet 1000 MG PO ×3 (00:34→17:23)
[2021-11-28] MEDS: Glycerin/Hypromellose/PEG400 15 ml Bottle 2 DRP EACH EYE (00:34)
[2021-11-28 06:20] LABS: Partial Thromboplast Time 24.9 Seconds (24.1-36.2)
[2021-11-28 06:30] LABS: Absolute Lymphocyte Count 0.23 X10^3/uL (0.83-4.51); Absolute Neutrophil Count 12.7 X10^3/uL (2.0-7.7); Basophil# 0.02 X10^3/uL; Basophil% 0.1 % (0-1); Hematocrit 25.7 % (37-47); Hemoglobin 8.8 g/dL (12.0-15.0); Lymphocyte # 0.23 X10^3/ul (0.83-4.51); Lymphocyte % 1.6 % (19-41); Mean Corp Hgb Conc 34.2 g/dL (32-36); Mean Corpuscular Hgb 28.5 pg (27.0-32.0); Mean Corpuscular Volume 83.2 fL (81-99); Mean Platelet Vol. 9.7 fl (6.2-12.0); Monocyte# 1.23 X10^3/uL; Monocyte% 8.6 % (0-10); NRBC Flagged by Analyzer 0 % (0-5); Neutrophil # 12.66 X10^3/uL (2.7-7.7); Neutrophil % 88.8 % (47-70); POSITIVE DIFFERENTIAL YES; Platelet Count 368 K/mm3 (150-450); RBC Distribution Width CV 15.2 % (11.6-14.6); RBC Distribution Width SD 46.1 fl (35.1-43.9); Red Blood Count 3.09 M/mm3 (4.2-5.4); White Blood Count 14.3 K/mm3 (4.4-11.0)
[2021-11-28 06:31] LABS: Differential Indicated SCAN CRITERIA MET
[2021-11-28 06:44] LABS: Anion Gap 13 (5-15); BUN 31 mg/dL (7-18); BUN/Creat Ratio 12.3 RATIO (10-20); Calcium,Total 8.7 mg/dL (8.5-10.1); Chloride 91 mmol/L (98-107); Creatinine, Serum 2.52 mg/dL (0.55-1.02); EST Glomerular Filtration Rate 20 mL/min (>60); Est Glom Filt Rate - Afr Amer 24 mL/min (>60); Estimated Creatinine Clearance 15.45 ml/min; Glucose 150 mg/dL (74-106); Potassium 3.5 mmol/L (3.5-5.1); Sodium Level 129 mmol/L (136-145)
[2021-11-28 06:54] LABS: Differential Comment SCANNED
[2021-11-28 06:55] LABS: Hypochromasia 1+
--- NOTE | 2021-11-28 07:28 | PCM.PN.INT ---
Assessment & Plan Assessment/Plan (1) Lung mass: PLAN: Plan RECOMMENDATIONS: 1. Okay to continue empiric antibiotics pending cultures 2. Continue to wean supplemental oxygen as tolerated. 3. Perform walking oximetry prior to consideration for discharge home. 4. Encourage incentive spirometer use and mobilize patient as tolerated. 5. Clarify oncology recommendations 6. Doubt bronchoscopy would change clinical course unless palliative stent assessment IMPRESSIONS: 1. Right perihilar lung mass with probable postobstructive pneumonia The patient's CT chest demonstrated a right hilar lung mass which appears to be causing narrowing/occlusion of the right middle and lower lobe with what is likely a component of postobstructive pneumonia and atelectasis. In addition, multiple hypoattenuating lesions were noted throughout the liver, concerning for metastatic disease that have been biopsied and consistent with small cell lung cancer. Doubt bronchoscopy would be of significant clinical help as obstruction would recur quickly with secretions. Could evaluate for possible stent placement, but this could not be completed at this institution. This would be a palliative measure. We will attempt to clarify plan per oncology. If they believe it would be helpful, could proceed with bronchoscopy. Resistant organisms would be a concern, so reasonable to continue Vanco and Zosyn for now. Repeat sputum culture has been ordered. If no bronchoscopy is necessary, may sign off from a pulmonary perspective This note was generated with [employer] dictation software. It may contain incorrect words, spelling, and punctuation that were not noted in checking the note before signing. Subjective Subjective Patient subjectively feels slightly improved compared to yesterday. Patient did have an MRI yesterday suggestive of brain metastasis. Patient was seen by oncology and reportedly is to have a port placed. Patient is unaware of if a bronchoscopy would be indicated, but states the plan is to start chemo on Thursday. Objective Data Objective Data Vital Signs: Vital Signs Temp Pulse Resp BP Pulse Ox O2 Del Method O2 Flow Rate 36.6 C 67 18 97/61 96 Nasal Cannula 5 11/28/21 02:45 11/28/21 02:45 11/28/21 02:45 11/28/21 02:45 11/28/21 02:45 11/28/21 03:09 11/28/21 03:09 FiO2 100 11/26/21 13:45 Oxygen Flow Rate (L/min) 5 Oxygen Delivery Method Nasal Cannula Weight: 60.3 kg Body Mass Index (BMI) 25.1 Intake & Output: Intake and Output for Last 24 Hours 11/26/21 11/27/21 11/28/21 23:59 23:59 23:59 Intake Total 300 / 300 600 / 600 850 / 850 Output Total 400 / 400 Balance 300 / 300 600 / 600 450 / 450 Lab / Micro Data Attestation: I reviewed the patient's lab results. Result Diagrams: 11/28/21 05:49 11/28/21 05:49 Labs: Laboratory Results - last 24 hr 11/26/21 13:40: Diff Path Review Reviewed 11/28/21 05:49: WBC 14.3 H, RBC 3.09 L, Hgb 8.8 L, Hct 25.7 L, MCV 83.2, MCH 28.5, MCHC 34.2, RDW Std Deviation 46.1 H, RDW Coeff of Flaco 15.2 H, Plt Count 368, MPV 9.7, Immature Gran % (Auto) 0.900, Neut % (Auto) 88.8 H, Lymph % (Auto) 1.6 L, [place] % (Auto) 8.6, Eos % (Auto) 0.0, Baso % (Auto) 0.1, Absolute Neuts (auto) 12.7 H, Absolute Lymphs (auto) 0.23 L, Nucleated RBC % 0, Differential Comment SCANNED, Hypochromasia 1+ 11/28/21 05:49: Sodium 129 L, Potassium 3.5, Chloride 91 L, Carbon Dioxide 25.0, Anion Gap 13, BUN 31 H, Creatinine 2.52 H, Estim Creat Clear Calc 15.45, Est GFR (MDRD) Af Amer 24 L, Est GFR (MDRD) Non-Af 20 L, BUN/Creatinine Ratio 12.3, Glucose 150 H, Calcium 8.7 11/28/21 05:49: APTT 24.9 Micro: Microbiology 11/27/21 00:03 Urine, Clean Catch Streptococcus pneumoniae Antigen (M - Final Radiography Diagnostic Testing: Radiology Impression Brain MRI 11/27/21 09:00 IMPRESSION: A 1.1 cm faintly circumferential enhancing lesion visualized in the right cerebellum suggestive of metastasis. Two lesions are visualized in the cortical guidewire in that demonstrate increased signal on DWI that could either represent a small metastasis or subtle lacunar infarcts measuring less than 0.4 cm. Electronically Signed: Roel Ayoub MD at 16:26 EDT , Rhythm Strip Rhythm Strip: Sinus Rhythm Rate: 67 Ectopy: None Physical Exam Const alert, oriented x3 and no apparent distress General Appearance: cooperative and frail HEENT normocephalic, head/scalp atraumatic and moist oral mucous membranes Eyes PERRL, EOMs intact bilaterally and conjunctivae normal Neck supple General: trachea midline Chest inspection of chest normal Resp normal respiratory effort Resp Narrative: Some splinting noted with deep inhalation Auscultation: diminished lung sounds; Negative for rales, rhonchi or wheezes Cardio regular rate, regular rhythm, S1 normal heart sound, S2 normal heart sound, no murmurs, no rub and no gallops GI Inspection: abdominal distention Palpation: tender; Negative for guarding, rigid or ascites Extremity no clubbing, cyanosis or edema Skin no rashes or lesions noted Neuro oriented x3, CN's II-XII intact bilaterally and moves all extremities Psych cooperative and affect normal Charges/Coding Visit Charges Inpatient E&M: 79086 Subs Hosp L2
[2021-11-28] MEDS: dilTIAZem 30 MG Tablet 90 MG PO ×4 (07:37→22:20)
[2021-11-28] MEDS: Metoprolol Tartrate 25 MG Tablet 12.5 MG PO ×2 (07:37→22:20)
[2021-11-28] MEDS: Cholecalciferol (Vit D3) 125 MCG CAPSULE (5,000 UNITS) PO (07:38)
[2021-11-28] MEDS: Pantoprazole Sodium 40 MG Tablet PO ×2 (07:38→22:11)
[2021-11-28] MEDS: Sertraline 100 MG Tablet PO (07:40)
[2021-11-28] MEDS: guaiFENesin 1,200 MG Tablet 1200 MG PO ×2 (07:40→22:11)
[2021-11-28] MEDS: dexAMETHasone 4 MG Tablet PO (07:45)
--- NOTE | 2021-11-28 07:45 | PCM.PN.HOSP ---
Subjective Subjective Feels that she has had slight swelling in her legs. Still with abdominal pain but appears to be tolerated better with the medication. Is eating some. Objective Data Objective Data Vital Signs: Vital Signs Temp Pulse Resp BP Pulse Ox O2 Del Method O2 Flow Rate 36.6 C 67 18 97/61 96 Nasal Cannula 5 11/28/21 02:45 11/28/21 02:45 11/28/21 02:45 11/28/21 02:45 11/28/21 02:45 11/28/21 03:09 11/28/21 03:09 FiO2 100 11/26/21 13:45 Oxygen Flow Rate (L/min) 5 Oxygen Delivery Method Nasal Cannula Weight: 60.3 kg Body Mass Index (BMI) 25.1 Intake & Output: Intake and Output for Last 24 Hours 11/26/21 11/27/21 11/28/21 23:59 23:59 23:59 Intake Total 300 / 300 600 / 600 850 / 850 Output Total 400 / 400 Balance 300 / 300 600 / 600 450 / 450 Lab / Micro Data Result Diagrams: 11/28/21 05:49 11/28/21 05:49 Labs: Laboratory Results - last 24 hr 11/26/21 13:40: Diff Path Review Reviewed 11/28/21 05:49: WBC 14.3 H, RBC 3.09 L, Hgb 8.8 L, Hct 25.7 L, MCV 83.2, MCH 28.5, MCHC 34.2, RDW Std Deviation 46.1 H, RDW Coeff of Flaco 15.2 H, Plt Count 368, MPV 9.7, Immature Gran % (Auto) 0.900, Neut % (Auto) 88.8 H, Lymph % (Auto) 1.6 L, [place] % (Auto) 8.6, Eos % (Auto) 0.0, Baso % (Auto) 0.1, Absolute Neuts (auto) 12.7 H, Absolute Lymphs (auto) 0.23 L, Nucleated RBC % 0, Differential Comment SCANNED, Hypochromasia 1+ 11/28/21 05:49: Sodium 129 L, Potassium 3.5, Chloride 91 L, Carbon Dioxide 25.0, Anion Gap 13, BUN 31 H, Creatinine 2.52 H, Estim Creat Clear Calc 15.45, Est GFR (MDRD) Af Amer 24 L, Est GFR (MDRD) Non-Af 20 L, BUN/Creatinine Ratio 12.3, Glucose 150 H, Calcium 8.7 11/28/21 05:49: APTT 24.9 Micro: Microbiology 11/27/21 00:03 Urine, Clean Catch Streptococcus pneumoniae Antigen (M - Final Radiography Diagnostic Testing: Radiology Impression Brain MRI 11/27/21 09:00 IMPRESSION: A 1.1 cm faintly circumferential enhancing lesion visualized in the right cerebellum suggestive of metastasis. Two lesions are visualized in the cortical guidewire in that demonstrate increased signal on DWI that could either represent a small metastasis or subtle lacunar infarcts measuring less than 0.4 cm. Electronically Signed: Roel Ayoub MD at 16:26 EDT , Rhythm Strip Rhythm Strip: Sinus Rhythm Rate: 67 Ectopy: None Physical Exam Const alert and no apparent distress Constitutional Narrative: No respiratory distress Resp normal respiratory effort Resp Narrative: Bibasilar crackles Cardio regular rate, regular rhythm, S1 normal heart sound and S2 normal heart sound GI normal to inspection, nondistended, normoactive bowel sounds, soft to palpation and non-tender Extremity Extremity Narrative: Trace lower extremity edema Assessment & Plan Assessment/Plan (1) Small cell carcinoma of lung metastatic to liver: PLAN: Stage IV: Liver and brain metastasis MRI brain shows 1/1 cm lesion in right cerebellum DW Dr. Jauregui 11/27, patient to have port placement this week. Pt will need XRT, but priority is for chemotherapy. He plans to start chemotherapy as outpt on 12/02. I informed him that is not for certain that pt could be ready for discharge by then. (2) Postobstructive pneumonia: PLAN: on vanc and pip/tazo pulmonary toilet no bronchoscopy planned Infectious work-up so far negative (3) GREG (acute kidney injury): PLAN: Secondary to prerenal azotemia No obstructive process noted on ultrasound creatinine steadily worsened since 11/21 Plan: IVF avoid nephrotoxic agents. If worse, consult nephrology. No need for PUBLIC RELATIONS SENIOR ASSOCIATE at this time, however. (4) Pain, cancer: PLAN: abdominal pain no SBO/Ileus. Likely due to hepatic metastatic disease Patient advised to inform us of her abdominal pain is intractable or if the pain medication does not seem to be as effective. PLAN: Plan VTE prophylaxis with enoxaparin Charges/Coding Visit Charges Inpatient E&M: 14147 Subs Hosp L2
--- NOTE | 2021-11-28 07:48 | EKG12_ITS ---
Test Reason : CP Blood Pressure : / mmHG Vent. Rate : 095 BPM Atrial Rate : 095 BPM P-R Int : 136 ms QRS Dur : 076 ms QT Int : 362 ms P-R-T Axes : 030 001 019 degrees QTc Int : 454 ms Normal sinus rhythm Normal ECG Confirmed by ELBA MEJIA, ADA ([id number]), greeting card editor SHAKA PANDEY ([id number]) on 12/03/2021 9:40:11 AM Referred By: KYLEIGH Confirmed By:ADA ARREOLA MD
[2021-11-28] MEDS: Ondansetron 4 MG/2 ML Vial IV (07:50)
--- NOTE | 2021-11-28 07:57 | US_ITS ---
INDICATION: GREG EXAMINATION: Ultrasound US Kidney(s) complete (eg, kidneys and bladder) TECHNIQUE: Mustafa scale and color doppler images were obtained of the kidneys. COMPARISON: 11/26/2021.. FINDINGS: RIGHT KIDNEY: The right kidney demonstrates increased echogenicity and unremarkable vascularity. There is no hydronephrosis. No shadowing calculus, focal lesion or perinephric collection is demonstrated. The right kidney measures 10.2 x 4.4 x 3.6 cm. Right renal cortex measures 1.2 cm. LEFT KIDNEY: The left kidney is not visualized, the left renal fossa is empty, URINARY BLADDER: Was not visualized. Incidental note is made of multiple heterogeneous lesions within the liver. US/Kidney and Bladder IMPRESSION: Increased echogenicity of the right kidney suggestive of medical renal disease, no evidence of right renal masses or hydronephrosis. Left kidney is absent. Incidental note is made of multiple masses in the liver. . Electronically Signed: Roel Ayoub MD at 9:54 EDT ,
[2021-11-28 08:34] LABS: Bacteria 0 SEEN /hpf (None Seen); Mucous, Urine 0 SEEN /hpf (<or=2+); Red Blood Cells-Urine 0 SEEN /hpf (0-5)
[2021-11-28 08:42] LABS: Color, Urine Yellow (Yellow); Glucose, Dipstick Normal (Normal); Ketone-Dipstick Negative (Negative); Leukocyte Esterase-Dipstick Negative /ul (Negative); Nitrite-Dipstick Negative (Negative); Occult Blood-Urine 10 /ul (Negative); Protein-Dipstick 30 mg/dl (Negative); Specific Gravity, Urine 1.015 (1.002-1.030); Urine Bilirubin Dipstick Negative (Negative); Urine Clarity Clear (Clear); Urine Urobilinogen Normal (Normal)
[2021-11-28 08:52] LABS: Calcium Oxalate Crystals Ur RARE /hpf (<or=2+); Squamous Epithelial Cells - UA 0-5 SEEN /hpf (5-10); White Blood Cells 0-5 SEEN /hpf (0-5)
[2021-11-28 08:53] LABS: Urine Sodium < 5 mmol/L (Not Establ.)
[2021-11-28] MEDS: 0.9% Normal Saline 1,000 ML 150 ML IV (09:55)
[2021-11-28] MEDS: 0.9% Saline Lock 10 ML Syringe IV (09:55)
[2021-11-28] MEDS: ALPRAZolam 0.5 MG Tablet PO ×2 (10:00→22:08)
--- NOTE | 2021-11-28 11:10 | CASEMGMT ---
ELAINE ROACH in to pt room as ELAINE ROACH notified pt wanted to go to TCU. Pt is aware she cannot go to TCU and receive chemotherapy. She states well then that's out. Discussed with her that she could have therapy added onto her HHC at home. Pt states she cannot tolerate therapy now until she gets rid of the discomfort at her abdomen area. Pt states she does not want therapy in the hospital either. Updated therapy.
--- NOTE | 2021-11-28 12:48 | CON.PCM.SX_ITS ---
Assessment & Plan Assessment/Plan (1) Encounter for insertion of venous access port: (2) Small cell lung cancer: (3) Regional lymph node metastasis present: (4) Disseminated cancer: PLAN: Plan I have discussed above with the patient- Port-a-Cath placement. Right possible left IJ Patient has been counseled as to the risks/benefits of the procedure. I have explained the risks of the surgery, including but not limited to: infection, bleeding, injury to any blood vessels/nerves, injury to lungs (such as pne umothorax or hemothorax and need for chest tube), not having any access, nonfunctioning of port due to thrombosis, infection of port, etc. the patient understands and agrees to proceed. I have answered all the patient's questions to the patient?s satisfaction and the patient has no further questions. Catie Jefferson M.D. Pager: [phone] [facility] [address] [place] [address], [facility], [address] [place] [id number] Office: [phone] HPI Consult Data Date of Consult: 11/28/21 HPI Narrative Reason for Consultation: Port placement due to metastatic lung cancer HPI Narrative: KEY EATON, is a 71 F who admitted to the hospital due to shortness of breath with a recent diagnosis of metastatic lung cancer. Dr. Jauregui requested consultation for port placement. 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 Planning to start treatment on Thursday. [facility] Medical History (Updated 11/28/21 @ 12:[address] Catie Jefferson MD) Asthma Atrial fibrillation Brain metastasis Chronic anemia Congestive heart failure (CHF) Depression Former smoker GERD (gastroesophageal reflux disease) Liver metastases Lung cancer Metastatic disease Migraines Pain, cancer Pleural metastasis Regional lymph node metastasis present Small cell lung cancer Home Medications acetaminophen 500 mg tablet 1,000 mg PO Q6H PRN Pain 11/20/21 [History Last Taken 11/25/21] alprazolam 0.5 mg tablet 0.5 tab PO TID PRN Anxiety 11/20/21 [History Last Taken 11/24/21] atorvastatin 10 mg tablet 10 tab PO DAILY cholesterol 11/20/21 [History Last Taken 11/25/21] bisacodyl 5 mg tablet,delayed release (Dulcolax (bisacodyl)) 5 mg PO QHS PRN Constipation 11/20/21 [History Last Taken 11/25/21] diltiazem HCl 90 mg tablet 90 tab PO 4X/DAY heart rate 11/20/21 [History Last Taken 11/26/21] furosemide 20 mg tablet 20 tab PO DAILY PRN Edema 11/20/21 [History Last Taken 11/26/21] senna-docusate sodium tablet 2 tab PO DAILY CONSTIPATION 11/20/21 [History Last Taken 11/25/21] sertraline 100 mg tablet 100 tab PO DAILY MOOD 11/20/21 [History Last Taken 11/26/21] cetirizine 10 mg tablet 10 mg PO DAILY allergies 11/21/21 [History Last Taken 11/25/21] cholecalciferol (vitamin D3) 125 mcg (5,000 unit) tablet 125 mcg PO DAILY vit winters 11/21/21 [History Last Taken 11/25/21] magnesium 250 mg tablet 250 mg PO DAILY SUPPLEMENT 11/21/21 [History Last Taken 11/25/21] levofloxacin 750 mg tablet 750 mg PO Q48H #3 tabs 11/23/21 [Rx Last Taken 11/25/21] oxycodone 5 mg capsule 5 mg PO Q4H PRN pain 4 days #20 caps 11/23/21 [Rx Last Taken 11/25/21] aspirin 81 mg chewable tablet 81 mg PO BREAKFAST HEART 11/26/21 [History Last Taken 11/25/21] metoprolol tartrate 25 mg tablet 12.5 mg PO BID BP 11/26/21 [History Last Taken 11/26/21] pantoprazole 40 mg tablet,delayed release 40 mg PO BID GERD 11/26/21 [History Last Taken 11/26/21] Allergy/AdvReac Type Severity Reaction Status Date / Time albuterol Allergy Other Verified 11/26/21 12:44 [From Chrissy HFA] Family History Mother CVA (cerebral vascular accident) Heart disease Hypertension HLD (hyperlipidemia) Father Asthma Hypertension PAF (paroxysmal atrial fibrillation) Surgical History H/O kidney removal History of cardiac radiofrequency ablation Hx of tubal ligation Social History household members: none Smoking Status: Former smoker how long ago did patient quit smoking: Quit 08/30/1983, smoked 1/2 ppd since age 27 until quit. alcohol intake: never substance use type: does not use ROS Constitutional Constitutional: Denies anorexia Eyes Eyes: Denies loss of vision ENT HEENT: Denies dysphagia Cardiovascular Cardiovascular: Denies chest pain Respiratory/Chest Respiratory/Chest: Reports shortness of breath at rest and shortness of breath with exertion Gastrointestinal Gastrointestinal: Reports abdominal pain; Denies nausea or vomiting Genitourinary Genitourinary: Denies dysuria Integumentary Integumentary: Denies jaundice Psychiatric Psychiatric: Reports anxiety Endocrine Endocrinology: Denies palpitations Hematologic/Lymphatic Hematologic/Lymphatic: Denies easy bleeding Physical Exam Const alert, oriented x3 and no apparent distress General Appearance: cooperative HEENT normocephalic Neck supple Chest Chest Narrative: Bilateral upper chest normal palpation Resp normal respiratory effort Resp Narrative: On 6 L nasal cannula Cardio Rate: regular rate GI soft to palpation Inspection: abdominal distention Extremity normal to inspection Skin no rashes or lesions noted Neuro CN's II-XII intact bilaterally Psych mental status grossly normal Lab / Micro Data Result Diagrams: 11/28/21 05:49 11/28/21 05:49 Labs: Laboratory Results - last 24 hr 11/28/21 05:49: WBC 14.3 H, RBC 3.09 L, Hgb 8.8 L, Hct 25.7 L, MCV 83.2, MCH 28.5, MCHC 34.2, RDW Std Deviation 46.1 H, RDW Coeff of Flaco 15.2 H, Plt Count 368, MPV 9.7, Immature Gran % (Auto) 0.900, Neut % (Auto) 88.8 H, Lymph % (Auto) 1.6 L, [place] % (Auto) 8.6, Eos % (Auto) 0.0, Baso % (Auto) 0.1, Absolute Neuts (auto) 12.7 H, Absolute Lymphs (auto) 0.23 L, Nucleated RBC % 0, Differential Comment SCANNED, Hypochromasia 1+ 11/28/21 05:49: Sodium 129 L, Potassium 3.5, Chloride 91 L, Carbon Dioxide 25.0, Anion Gap 13, BUN 31 H, Creatinine 2.52 H, Estim Creat Clear Calc 15.45, Est GFR (MDRD) Af Amer 24 L, Est GFR (MDRD) Non-Af 20 L, BUN/Creatinine Ratio 12.3, Glucose 150 H, Calcium 8.7 11/28/21 05:49: APTT 24.9 11/28/21 08:25: Urine Color Yellow, Urine Clarity Clear, Urine pH 6.0, Ur Specific [place] 1.015, Urine Protein 30 H, Urine Glucose (UA) Normal, Urine Ketones Negative, Urine Occult Blood 10 H, Urine Nitrite Negative, Urine Bilirubin Negative, Urine Urobilinogen Normal, Ur Leukocyte Esterase Negative, Urine RBC 0 SEEN, Urine WBC 0-5 SEEN, Ur Squamous Epith Cells 0-5 SEEN, Calcium Oxalate Crystal RARE, Urine Bacteria 0 SEEN, Urine Mucus 0 SEEN 11/28/21 08:25: Ur Random Sodium < 5, Urine Creatinine 75.10 Rhythm Strip Rhythm Strip: Sinus Rhythm Rate: 67 Ectopy: None Radiology Impression Brain MRI 11/27/21 09:00 IMPRESSION: A 1.1 cm faintly circumferential enhancing lesion visualized in the right cerebellum suggestive of metastasis. Two lesions are visualized in the cortical guidewire in that demonstrate increased signal on DWI that could either represent a small metastasis or subtle lacunar infarcts measuring less than 0.4 cm. Electronically Signed: Roel Ayoub MD at 16:26 EDT Reading Location ID and State: [facility] / [place] Tel , Service support , Renal Ultrasound 11/28/21 07:57 IMPRESSION: Increased echogenicity of the right kidney suggestive of medical renal disease, no evidence of right renal masses or hydronephrosis. Left kidney is absent. Incidental note is made of multiple masses in the liver. . Electronically Signed: Roel Ayoub MD at 9:54 EDT , Procedure Criteria Type of Procedure Procedure Type: Elective Elective Risks - COVID COVID Risk Discussion: The surgeon/proceduralist and patient have discussed in detail the risk of exposure to and/or potential harm posed by the COVID-19 virus with having a surgery/procedure at this time versus the risk of delaying the surgery/procedure. It is not possible to know either the risk of delaying the surgery or procedure or chance of getting an infection with perfect accuracy, but a joint decision was made between the patient and the surgeon/proceduralist to proceed at this time with the scheduled surgery/procedure as indicated on the consent form.
--- NOTE | 2021-11-28 12:52 | CASEMGMT ---
Pt screened with [facility] Palliative Care Screening Tool due to readmission. Pt met criteria, order received. Referral emailed to palliative at this time.
--- NOTE | 2021-11-28 15:25 | CASEMGMT ---
Social Work SW met with pt to offer support related to diagnosis. Pt is open to visit from SW and converses easily. Pt acknowledges cancer diagnosis and prognosis and is able to talk about it openly. Pt states she has a very supportive daughter in law that is important to her. Pt also talking about her 3 grandchildren. Pt states she has a very good friend who is a good support and is agreeable to help her once she returns home. Emotional support provided throughout visit. SW inquired with pt regarding discharge plan. Pt states she is planning on starting chemo as soon as possible (treatments to start Thursday). Pt plans to return home and her friend Carmina will provide needed assistance. Pt states that her daughter in law is talking about eventually moving pt near her so family can provide assistance but no time frame has been set for this. SW informed pt that SW will remain available for support if needed. MICHAEL Aguillon
[2021-11-28 20:26] LABS: Vancomycin, Trough Level 16.8 ug/mL (5.0-15.0)
--- NOTE | 2021-11-28 21:56 | PCM.RX.CS ---
Consult Pharmacy has been consulted to manage selected antiobiotic: Vancomycin Type of Consult: Follow-up Suspected Infection: Pneumonia Prior Doses of Antibiotics Received/Current Regimen: Medications Vancomycin HCl (Vancomycin) 1,000 mg in 200 mls @ 200 mls/hr IV X1 ONE Stop: 11/28/21 23:29 Discontinued Medications Vancomycin HCl () 500 mg in 100 mls @ 100 mls/hr IV Q24H LIS Last Admin: 11/27/21 21:53 Dose: Infused Labs: Sodium 129 mmol/L (136-145) L 11/28/21 05:49 Potassium 3.5 mmol/L (3.5-5.1) 11/28/21 05:49 Chloride 91 mmol/L (98-107) L 11/28/21 05:49 Carbon Dioxide 25.0 mmol/L (21.0-32.0) 11/28/21 05:49 Anion Gap 13 (5-15) 11/28/21 05:49 BUN 31 mg/dL (7-18) H 11/28/21 05:49 Creatinine 2.52 mg/dL (0.55-1.02) H 11/28/21 05:49 Est GFR (MDRD) Af Amer 24 mL/min (>60) L 11/28/21 05:49 Est GFR (MDRD) Non-Af 20 mL/min (>60) L 11/28/21 05:49 BUN/Creatinine Ratio 12.3 RATIO (10-20) 11/28/21 05:49 Glucose 150 mg/dL (74-106) H 11/28/21 05:49 Vancomycin Trough 16.8 ug/mL (5.0-15.0) H 11/28/21 19:30 Microbiology: Microbiology 11/27/21 00:03 Urine, Clean Catch Streptococcus pneumoniae Antigen (M - Final Weight used for dosin.3 kg Estimated Creatinine Clearance: 17 Goal Trough: 15-20 mcg/mL Pharmacy Plan for Drug Dosing: Patient's SCr ezra from 1.91 to 2.52. Since the CrCl dipped to 17, the current continuing vancomycin dose was held. The scheduled trough draw 11/28/21 @1930 was 16.8, perfectly within the target range of 15-20. Per protocol a one time dose of 1000mg will be given, and a random vanco level will be drawn 11/30 with the morning labs. Further dosing will be determined from that result and current SCr. Pharmacy Service will continue to monitor and adjust dosing as required. Follow-Up Labs: Trough Vancomycin - random Labs to be done on [date and time ordered]: 11/30/21 @0600 random
[2021-11-28] MEDS: Vancomycin IV 1,000 MG/200 ML BAG 200 MG IV (22:08)
[2021-11-28] MEDS: Atorvastatin Calcium 10 MG Tablet PO (22:11)
[2021-11-29] VITALS (14 sets, daily range): BP systolic 96–114; BP diastolic 50–61; PULSE 73–91; RESP 12–22; TEMP 36.2–36.7; O2SAT 93–96; BMI 25.1
[2021-11-29] MEDS: oxyCODONE 5 MG Tablet 10 MG PO ×2 (04:35→22:59)
[2021-11-29] MEDS: Acetaminophen 500 MG Tablet 1000 MG PO (04:35)
[2021-11-29 05:20] LABS: Absolute Neutrophil Count 13.9 X10^3/uL (2.0-7.7); Basophil# 0.02 X10^3/uL; Basophil% 0.1 % (0-1); Hematocrit 24.3 % (37-47); Lymphocyte % 1.9 % (19-41); Mean Corp Hgb Conc 32.9 g/dL (32-36); Mean Corpuscular Hgb 28.4 pg (27.0-32.0); Mean Corpuscular Volume 86.2 fL (81-99); Mean Platelet Vol. 9.5 fl (6.2-12.0); Monocyte# 1.39 X10^3/uL; Monocyte% 8.8 % (0-10); NRBC Flagged by Analyzer 0 % (0-5); Neutrophil # 13.93 X10^3/uL (2.7-7.7); Neutrophil % 87.8 % (47-70); POSITIVE DIFFERENTIAL YES; Platelet Count 317 K/mm3 (150-450); RBC Distribution Width CV 15.4 % (11.6-14.6); RBC Distribution Width SD 48.9 fl (35.1-43.9); Red Blood Count 2.82 M/mm3 (4.2-5.4); White Blood Count 15.9 K/mm3 (4.4-11.0)
[2021-11-29 05:42] LABS: Differential Indicated SCAN CRITERIA MET
[2021-11-29 05:52] LABS: Anion Gap 13 (5-15); BUN 39 mg/dL (7-18); Calcium,Total 8.3 mg/dL (8.5-10.1); Chloride 92 mmol/L (98-107); Creatinine, Serum 3.25 mg/dL (0.55-1.02); EST Glomerular Filtration Rate 15 mL/min (>60); Est Glom Filt Rate - Afr Amer 18 mL/min (>60); Estimated Creatinine Clearance 11.98 ml/min; Glucose 126 mg/dL (74-106); Potassium 3.4 mmol/L (3.5-5.1); Sodium Level 129 mmol/L (136-145)
[2021-11-29 06:21] LABS: Differential Comment SCANNED; Hypochromasia 2+
--- NOTE | 2021-11-29 07:19 | PCM.PN.HOSP ---
Subjective Subjective Still with intractable abdominal pain. Objective Data Objective Data Vital Signs: Vital Signs Temp Pulse Resp BP Pulse Ox O2 Del Method O2 Flow Rate 36.5 C L 73 16 102/53 L 94 Nasal Cannula 6 11/29/21 02:13 11/29/21 02:13 11/29/21 02:13 11/29/21 02:13 11/29/21 02:13 11/29/21 02:13 11/29/21 02:13 FiO2 100 11/26/21 13:45 Oxygen Flow Rate (L/min) 6 Oxygen Delivery Method Nasal Cannula Weight: 60.3 kg Body Mass Index (BMI) 25.1 Intake & Output: Intake and Output for Last 24 Hours 11/27/21 11/28/21 11/29/21 23:59 23:59 23:59 Intake Total 600 / 600 2550.00 / 2550.00 50 / 50 Output Total 400 / 400 Balance 600 / 600 2150.00 / 2150.00 50 / 50 Lab / Micro Data Result Diagrams: 11/29/21 05:05 11/29/21 05:05 Labs: Laboratory Results - last 24 hr 11/28/21 08:25: Urine Color Yellow, Urine Clarity Clear, Urine pH 6.0, Ur Specific [place] 1.015, Urine Protein 30 H, Urine Glucose (UA) Normal, Urine Ketones Negative, Urine Occult Blood 10 H, Urine Nitrite Negative, Urine Bilirubin Negative, Urine Urobilinogen Normal, Ur Leukocyte Esterase Negative, Urine RBC 0 SEEN, Urine WBC 0-5 SEEN, Ur Squamous Epith Cells 0-5 SEEN, Calcium Oxalate Crystal RARE, Urine Bacteria 0 SEEN, Urine Mucus 0 SEEN 11/28/21 08:25: Ur Random Sodium < 5, Urine Creatinine 75.10 11/28/21 19:30: Vancomycin Trough 16.8 H 11/29/21 05:05: WBC 15.9 H, RBC 2.82 L, Hgb 8.0 L, Hct 24.3 L, MCV 86.2, MCH 28.4, MCHC 32.9, RDW Std Deviation 48.9 H, RDW Coeff of Flaco 15.4 H, Plt Count 317, MPV 9.5, Immature Gran % (Auto) 1.400 H, Neut % (Auto) 87.8 H, Lymph % (Auto) 1.9 L, [address] % (Auto) 8.8, Eos % (Auto) 0.0, Baso % (Auto) 0.1, Absolute Neuts (auto) 13.9 H, Absolute Lymphs (auto) 0.30 L, Nucleated RBC % 0, Differential Comment SCANNED, Hypochromasia 2+ 11/29/21 05:05: Sodium 129 L, Potassium 3.4 L, Chloride 92 L, Carbon Dioxide 24.0, Anion Gap 13, BUN 39 H, Creatinine 3.25 H, Estim Creat Clear Calc 11.98, Est GFR (MDRD) Af Amer 18 L, Est GFR (MDRD) Non-Af 15 L, BUN/Creatinine Ratio 12.0, Glucose 126 H, Calcium 8.3 L Micro: Microbiology 11/27/21 00:03 Urine, Clean Catch Streptococcus pneumoniae Antigen (M - Final Radiography Diagnostic Testing: Radiology Impression Renal Ultrasound 11/28/21 07:57 IMPRESSION: Increased echogenicity of the right kidney suggestive of medical renal disease, no evidence of right renal masses or hydronephrosis. Left kidney is absent. Incidental note is made of multiple masses in the liver. . Electronically Signed: Roel Ayoub MD at 9:54 EDT Reading Location ID and State: [facility] / [place] Tel , Service support , Rhythm Strip Rhythm Strip: Sinus Rhythm Rate: 67 Ectopy: None Physical Exam Const alert Constitutional Narrative: Groggy but just did receive hydromorphone prior to my encounter. 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 Jauregui 11/27, patient to have port placement this week. Pt will need XRT, but priority is for chemotherapy. He plans to start chemotherapy as outpt on 12/02. I informed him that is not for certain that pt could be ready for discharge by then. 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 consult nephrology for input. DW Dr. Allen. (4) Pain, cancer: PLAN: abdominal pain no SBO/Ileus. Likely due to hepatic metastatic disease Patient advised to inform us of her abdominal pain is intractable or if the pain medication does not seem to be as effective. PLAN: Plan VTE prophylaxis with enoxaparin Disposition: Plan is for the patient to go to [facility] when she is medically stable. Patient will be followed by oncology Dr. Crenshaw there. He will continue with the chemotherapy. Patient has Medicare so will not require any prior authorization beforehand. Charges/Coding Visit Charges Inpatient E&M: 80665 Subs Hosp L2
--- NOTE | 2021-11-29 08:09 | PCM.PN.INT ---
Assessment & Plan Assessment/Plan (1) Lung mass: PLAN: Plan RECOMMENDATIONS: 1. Consider discontinuation of antibiotics 2. Continue to wean supplemental oxygen as tolerated. 3. Perform walking oximetry prior to consideration for discharge home. 4. Encourage incentive spirometer use and mobilize patient as tolerated. 5. Okay to follow-up as outpatient if patient is agreeable 6. Given relative stability, will sign off from a pulmonary perspective IMPRESSIONS: 1. Right perihilar lung mass with probable postobstructive pneumonia The patient's CT chest demonstrated a right hilar lung mass which appears to be causing narrowing/occlusion of the right middle and lower lobe with what is likely a component of postobstructive pneumonia and atelectasis. In addition, multiple hypoattenuating lesions were noted throughout the liver, concerning for metastatic disease that have been biopsied and consistent with small cell lung cancer. Doubt bronchoscopy would be of significant clinical help as obstruction would recur quickly with secretions. Could evaluate for possible stent placement, but this could not be completed at this institution. This would be a palliative measure. Given lack of need for bronchoscopy and relative stability, will sign off from a pulmonary perspective. Potassium will be supplemented. Guarded to poor prognosis long-term, but happy to follow-up as an outpatient if patient is agreeable. Complications given patient's request to move to [place] logistically. This note was generated with [employer] dictation software. It may contain incorrect words, spelling, and punctuation that were not noted in checking the note before signing. Subjective Subjective Patient did okay overnight. Patient states her respiratory status has been unchanged. Patient is to have a port placed today. Patient states that she may be moving in with her [id number] in [facility] following discharge. Patient is unclear if she will need to follow-up in our office. Objective Data Objective Data Vital Signs: Vital Signs Temp Pulse Resp BP Pulse Ox O2 Del Method O2 Flow Rate 36.5 C L 73 16 102/53 L 94 Nasal Cannula 6 11/29/21 02:13 11/29/21 02:13 11/29/21 02:13 11/29/21 02:13 11/29/21 02:13 11/29/21 02:13 11/29/21 02:13 FiO2 100 11/26/21 13:45 Oxygen Flow Rate (L/min) 6 Oxygen Delivery Method Nasal Cannula Weight: 60.3 kg Body Mass Index (BMI) 25.1 Intake & Output: Intake and Output for Last 24 Hours 11/27/21 11/28/21 11/29/21 23:59 23:59 23:59 Intake Total 600 / 600 2550.00 / 2550.00 50 / 50 Output Total 400 / 400 Balance 600 / 600 2150.00 / 2150.00 50 / 50 Lab / Micro Data Attestation: I reviewed the patient's lab results. Result Diagrams: 11/29/21 05:05 11/29/21 05:05 Labs: Laboratory Results - last 24 hr 11/28/21 08:25: Urine Color Yellow, Urine Clarity Clear, Urine pH 6.0, Ur Specific [place] 1.015, Urine Protein 30 H, Urine Glucose (UA) Normal, Urine Ketones Negative, Urine Occult Blood 10 H, Urine Nitrite Negative, Urine Bilirubin Negative, Urine Urobilinogen Normal, Ur Leukocyte Esterase Negative, Urine RBC 0 SEEN, Urine WBC 0-5 SEEN, Ur Squamous Epith Cells 0-5 SEEN, Calcium Oxalate Crystal RARE, Urine Bacteria 0 SEEN, Urine Mucus 0 SEEN 11/28/21 08:25: Ur Random Sodium < 5, Urine Creatinine 75.10 11/28/21 19:30: Vancomycin Trough 16.8 H 11/29/21 05:05: WBC 15.9 H, RBC 2.82 L, Hgb 8.0 L, Hct 24.3 L, MCV 86.2, MCH 28.4, MCHC 32.9, RDW Std Deviation 48.9 H, RDW Coeff of Flaco 15.4 H, Plt Count 317, MPV 9.5, Immature Gran % (Auto) 1.400 H, Neut % (Auto) 87.8 H, Lymph % (Auto) 1.9 L, [place] % (Auto) 8.8, Eos % (Auto) 0.0, Baso % (Auto) 0.1, Absolute Neuts (auto) 13.9 H, Absolute Lymphs (auto) 0.30 L, Nucleated RBC % 0, Differential Comment SCANNED, Hypochromasia 2+ 11/29/21 05:05: Sodium 129 L, Potassium 3.4 L, Chloride 92 L, Carbon Dioxide 24.0, Anion Gap 13, BUN 39 H, Creatinine 3.25 H, Estim Creat Clear Calc 11.98, Est GFR (MDRD) Af Amer 18 L, Est GFR (MDRD) Non-Af 15 L, BUN/Creatinine Ratio 12.0, Glucose 126 H, Calcium 8.3 L Micro: Microbiology 11/27/21 00:03 Urine, Clean Catch Streptococcus pneumoniae Antigen (M - Final Radiography Diagnostic Testing: Radiology Impression Renal Ultrasound 11/28/21 07:57 IMPRESSION: Increased echogenicity of the right kidney suggestive of medical renal disease, no evidence of right renal masses or hydronephrosis. Left kidney is absent. Incidental note is made of multiple masses in the liver. . Electronically Signed: Roel Ayoub MD at 9:54 EDT Reading Location ID and State: [facility] / [place] Tel , Service support , Rhythm Strip Rhythm Strip: Sinus Rhythm Rate: 73 Ectopy: None Physical Exam Const alert, oriented x3 and no apparent distress General Appearance: cooperative and frail HEENT normocephalic, head/scalp atraumatic and moist oral mucous membranes Eyes PERRL, EOMs intact bilaterally and conjunctivae normal Neck supple General: trachea midline Chest inspection of chest normal Resp normal respiratory effort Resp Narrative: Some splinting noted with deep inhalation Auscultation: diminished lung sounds; Negative for rales, rhonchi or wheezes Cardio regular rate, regular rhythm, S1 normal heart sound, S2 normal heart sound, no murmurs, no rub and no gallops GI Inspection: abdominal distention Palpation: tender; Negative for guarding, rigid or ascites Extremity no clubbing, cyanosis or edema Skin no rashes or lesions noted Neuro oriented x3, CN's II-XII intact bilaterally and moves all extremities Psych cooperative and affect normal Charges/Coding Visit Charges Inpatient E&M: 80222 Subs Hosp L2
--- NOTE | 2021-11-29 08:33 | NURSING ---
Daughter in law Sidra on phone via speaker communicating with this RN and mother Carlie, both are aware of BUN and Creat. Pt is aware that nephrology has been consulted. i dont want dialysis. Sidra also states she has arranged for pt to go to [facility] TCU unit to be closer to son and daughter in law. This nurse will inform Dr. Saleem and MARLEY.
[2021-11-29] MEDS: Metoprolol Tartrate 25 MG Tablet 12.5 MG PO (08:42)
[2021-11-29] MEDS: 0.9% Normal Saline 1,000 ML 150 ML IV ×3 (08:42→22:55)
[2021-11-29] MEDS: 0.9% Saline Lock 10 ML Syringe IV ×2 (08:44→12:33)
[2021-11-29] MEDS: HYDROmorphone 0.5 MG/0.5 ML SYRINGE IV ×2 (08:44→12:29)
--- NOTE | 2021-11-29 10:25 | CASEMGMT ---
Addendum entered by Pearl Richardson 11/29/21 11:26: Social Work Return call from Nia from [facility] at [facility]. Nia states they have a bed available and are able to accept at anytime, including over the weekend. Clinicals faxed and physician updated on accepting facility. Plan: [facility] at [facility], when medically ready MICHAEL Aguillon Original Note: Social Work Per physician and RN pt and daughter are requesting transfer to [facility]. Pt is currently in procedure. ZAK placed call to pt's daughter in law Sidra Casper to discuss discharge plan. Sidra states that she has spoke with pt and feels pt would benefit from being close to family as she does not have a local support system. Sidra states she has talked to Oncology department at [facility] and they are agreeable to transfer pts care and can start treatments on Thursday. Sidra states she has also talked to the TCU at [facility] and they are agreeable to accept pt. ZAK placed Phone call to [facility] and left VM with ASSISTANT WOMEN'S TENNIS COACH requesting return call to discuss admission. ZAK will await return call. MICHAEL Aguillon
[2021-11-29] MEDS: Lidocaine 1% /Epi 1:100 (20ml) 20 ML Vial (10:30)
[2021-11-29] MEDS: Bupivacaine 0.25% 30 ML Vial (10:31)
--- NOTE | 2021-11-29 10:36 | OP.PCM_ITS ---
Report of Operation Date of Procedure: 11/29/21 Pre-Operative Diagnosis: z45.2, metastatic lung cancer Post-Operative Diagnosis: Same Surgery/Procedure Performed:: Right IJ Port-A-Cath Use of fluoroscopy Use of ultrasound Surgeon: Catie Jefferson Type of Anesthesia: Local MAC Anesthesiologist: Junito Stern Special Medications: Patient on Zosyn 3.375 g IV every 8 hours on the floor Specimen's removed: None Estimated Blood Loss (mL): < 10 cc Description of Procedure: After informed consent was given, the patient was brought to the operating room and placed in the supine position. Appropriate time out protocol was followed. Patient was then given IV conscious sedation for anesthesia. The patient's right upper chest and neck were then prepped with a surgical skin preparation and sterile surgical drapes were placed. After proper landmarks were ascertained, the skin at the upper right chest area was then infiltrated with 1:1 mixture of 1% lidocaine with epinephrine and 0.5% marcaine. A needle trocar was then inserted into the right internal jugular vein with ultrasound guidance-multiple vessels were viewed with u/s and the right IJ was chosen-- and there was good aspiration of venous blood. A wire was then threaded into the needle trocar and this was visualized under fluoroscopy to ensure that the wire was in the superior vena cava. Once this was done, then the needle trocar was removed. A small skin rhonda was made with an 11 blade knife at the wire entrance site. The dilator with the introducer sheath attached was then placed over the wire into the right internal jugular vein via the Seldinger technique and this was visualized under fluoroscopy. The dilator and sheath were in proper position as visualized by fluoroscopy. A subcutaneous pocket was then created caudad to the catheter insertion site. A transverse skin incision was made after the skin and subcutaneous tissues were infiltrated with local anesthetic. Blunt dissection was then used to create a space large enough for placement of the subcutaneous port. The catheter was then tunneled from the subcutaneous pocket to the right IJ neck incision. Patient did have a dilated external jugular just lateral thus the port was tunneled more medial than usual?fluoroscopy used to assure smooth curve as the catheter entered the IJ. The wire and dilator were then removed. The catheter was then threaded into the introducer sheath and was positioned with its tip at the junction of the superi or vena cava and the right atrium as visualized under fluoroscopy. The excess catheter was transected. The catheter was then attached to the subcutaneous port using manufacturers guidelines. The catheter was flushed with a heparin saline mixture prior to placement. Hemostasis was carefully controlled with electrocautery. The port was sutured to the subcutaneous fascia using 2-0 Vicryl suture at two sites. The port was then placed in the subcutaneous pocket. The incision were reapproximated with interrupted subdermal 3-0 vicryl sutures. The skin was reapproximated with 3-0 nylon suture in a interrupted fashion. Steristrips were used for reinforcement of the skin closure at IJ insertion site and a sterile opsite dressings were applied. The patient tolerated the procedure well. Grafts/Implants Used: Bard PowerPort isp M.R.I. 6Fr Lot [id number] Complications none
--- NOTE | 2021-11-29 10:55 | RAD_ITS ---
EXAM: XR CHEST, 1 VIEW CLINICAL INDICATION: port -- pacu TECHNIQUE: Frontal view of the chest. This report was created using [employer] report generation technology. COMPARISON: 11/26/2021 FINDINGS: LUNGS AND PLEURAL SPACES: See below. HEART: Unremarkable. Cardiac silhouette not enlarged. MEDIASTINUM: Central airways and mediastinal contour are unremarkable. BONES/JOINTS: There is a small right-sided effusion with right basilar airspace disease which is unchanged. SOFT TISSUES: Unremarkable. TUBES, LINES AND DEVICES: Right-sided Port-A-Cath is in place the distal tip overlying the superior vena cava. RAD/CXR for Line Placement IMPRESSION: No change in the appearance of the chest from reference exam. There is persistent right-sided effusion and right basilar airspace disease. Right-sided PICC line in good position. Electronically Signed: Param Robin MD at 11:16 EDT ,
--- NOTE | 2021-11-29 10:59 | SUR.PHASEI ---
PER DR HACKETT OK TO EAT/DRINK
--- NOTE | 2021-11-29 11:06 | DCINST_ITS ---
Discharge Instructions Procedure Port-A-Cath Diet Discharge Diet: Light diet - advance as tolerated Activity May shower in (days): 5 (Keep port site clean and dry x5 days. Neck incision okay to get wet after 1 day. Okay to lower shower and upper sponge bath. OR okay to taper off port site with a Ziploc bag to shower) Lifting Restrictions: No lifting > 15 pounds for 3 days with the arm on the side of the port Dressing / Incision Call your doctor if your incision/area has: Continuous Slow Oozing, Sudden Increased Bleeding, Increased Pain/ Swelling, Increased Redness, Foul Smelling Discharge and Swelling at the incision site Call your doctor if you observe: Fever of 101 or Higher Change Dressing in: 2 days Follow Up Care Please Follow Up With: Catie Jefferson MD When: In 10 days for permanent suture removal?call office for appointment Test Results: Test results from this visit will be discussed in further detail at your follow- up appointment, if applicable. Discharge Plan Admission Admit Date/Time: 11/26/21 17:37 Attending Provider: Junito Saleem Primary Care Provider: Conner Daley Consulting Providers: Gato Stewart ; Sanjiv Laird ; Purnima Albert [employer]ER [employer]ED [employer]OUT ; Conner Marquez ; Marcello Carter ; Mark Jauregui ; Gamal Ashton ; Abhilash Angel ; Ilya Coyne ; Zachery Farley ; Olga Long [employer] ; Vikas Allen Discharge Orders/Prescriptions Prescriptions: No Action atorvastatin 10 mg tablet 10 tab PO DAILY Label Comments: TAKE 1 TABLET BY MOUTH EVERY DAY sertraline 100 mg tablet 100 tab PO DAILY Label Comments: TAKE 1 TABLET BY MOUTH EVERY DAY acetaminophen 500 mg Tablet 1,000 mg PO Q6H PRN (Reason: Pain) alprazolam 0.5 mg tablet 0.5 tab PO TID PRN (Reason: Anxiety) Label Comments: TAKE 0.5 - 1 TABLET BY ORAL ROUTE 3 TIMES EVERY DAY NEEDED bisacodyl [Dulcolax (bisacodyl)] 5 mg Tablet,Delayed Release (Dr/Ec) 5 mg PO QHS PRN (Reason: Constipation) furosemide 20 mg tablet 20 tab PO DAILY PRN (Reason: Edema) Label Comments: TAKE 1 TABLET BY MOUTH EVERY DAY NEEDED FOR SWELLING Rx Instructions: daily as needed prn for swelling diltiazem HCl 90 mg tablet 90 tab PO 4X/DAY Label Comments: TAKE 1 TABLET BY MOUTH FOUR TIMES A DAY senna-docusate sodium Tablet 2 tab PO DAILY cetirizine 10 mg Tablet 10 mg PO DAILY magnesium 250 mg Tablet 250 mg PO DAILY cholecalciferol (vitamin D3) 125 mcg (5,000 unit) Tablet 125 mcg PO DAILY Rx Instructions: Thursday AND THURSDAY levofloxacin 750 mg tablet 750 mg PO Q48H Qty: 3 0RF oxycodone 5 mg capsule 5 mg PO Q4H PRN (Reason: pain) 4 Days Qty: 20 0RF pantoprazole 40 mg tablet,delayed release (DR/EC) 40 mg PO BID Rx Instructions: Take twice daily for 4 weeks then 40 mg daily aspirin 81 mg tablet,chewable 81 mg PO BREAKFAST metoprolol tartrate 25 mg tablet 12.5 mg PO BID Referrals / Follow Up: Conner Daley MD [Primary Care Provider] - Olga Long [employer], T[employer]-C [Med Staff - Adv Practice Prof] -
--- NOTE | 2021-11-29 11:37 | NURSING ---
Back from Surgery. In bed.
--- NOTE | 2021-11-29 11:47 | CASEMGMT ---
ELAINE ROACH in to pt room, pt nurse at bedside, discussed with patient if she would still like Palliative Care to see her today as they cannot see her while she is in [place] but could see her in her home in [place]. Pt states she plans to only have a few rounds of chemo and then return home. She would like Palliative to continue with the plan to come today. Palliative updated on pt plan as well as HH cancelled for pt. Provided pt with ELAINE ROACH card for any further questions. She is aware that she can get HHC set up by her PCP when she returns home.
[2021-11-29] MEDS: ALPRAZolam 0.5 MG Tablet PO ×2 (13:46→20:41)
[2021-11-29] MEDS: Potassium Chloride Oral Tablet 20 MEQ PO ×2 (13:47→17:51)
[2021-11-29] MEDS: Loratadine 10 MG Tablet PO (13:49)
[2021-11-29] MEDS: Pantoprazole Sodium 40 MG Tablet PO ×2 (13:50→21:44)
[2021-11-29] MEDS: dexAMETHasone 4 MG Tablet PO (13:50)
[2021-11-29] MEDS: Senna/Docusate Sodium 1 Tablet 2 TABLET PO (13:50)
[2021-11-29] MEDS: guaiFENesin 1,200 MG Tablet 1200 MG PO ×2 (13:50→21:44)
[2021-11-29] MEDS: Sertraline 100 MG Tablet PO (13:51)
[2021-11-29] MEDS: Cholecalciferol (Vit D3) 125 MCG CAPSULE (5,000 UNITS) PO (13:51)
[2021-11-29] MEDS: dilTIAZem 30 MG Tablet 90 MG PO ×2 (13:52→17:51)
--- NOTE | 2021-11-29 14:41 | CON.PCM.RE_ITS ---
Assessment & Plan Assessment/Plan (1) GREG (acute kidney injury): PLAN: She has known history of CKD stage IIIa, baseline creatinine around 1.3. Admitted with a creatinine of 1.7 this time, has been progressively worsening since then. Renal ultrasound without any hydronephrosis. Urine analysis shows mild protein, some RBCs. Urine sodium is less than 5. Differential includes prerenal. She did not get any contrast to this admission. She got 2 CT scans with contrast last admission with last study on the . This is somewhat d elayed onset for contrast-induced nephropathy. Possible that she is still prerenal. Continue IV fluids for now. Other possibility is extensive liver mets causing some form of IVC compression. All questions answered. Discussed with hospitalist. HPI Consult Data Date of Consult: 11/29/21 HPI Narrative Reason for Consultation: Acute renal failure HPI Narrative: KEY EATON, is a 71 F who presents to the hospital with shortness of breath, abdominal pain. Nephrology on consult for acute renal failure. This is her second admission within the last 10 days. She initially presented to the hospital on 21 November with shortness of breath. Was diagnosed with post obstructive pneumonia, newly diagnosed small cell carcinoma, metastasis to liver, ovary, cerebellum, pleural effusions. She is a known kidney donor, donated kidney to her son about 32 years ago. Etiology of his renal failure was glomerulonephritis. Her baseline creatinine is around 1.3-1.4. Her creatinine was close to baseline last admission. She came back with a creatinine of around 1.7 and has been progressively worsening since then. She says she is making urine. Denies any hematuria. Complains of diffuse abdominal pain. [facility] Medical History (Updated 11/28/21 @ 12:[address] Catie Jefferson MD) Asthma Atrial fibrillation Brain metastasis Chronic anemia Congestive heart failure (CHF) Depression Former smoker GERD (gastroesophageal reflux disease) Liver metastases Lung cancer Metastatic disease Migraines Pain, cancer Pleural metastasis Regional lymph node metastasis present Small cell lung cancer Home Medications acetaminophen 500 mg tablet 1,000 mg PO Q6H PRN Pain 11/20/21 [History Last Taken 11/25/21] alprazolam 0.5 mg tablet 0.5 tab PO TID PRN Anxiety 11/20/21 [History Last Taken 11/24/21] atorvastatin 10 mg tablet 10 tab PO DAILY cholesterol 11/20/21 [History Last Taken 11/25/21] bisacodyl 5 mg tablet,delayed release (Dulcolax (bisacodyl)) 5 mg PO QHS PRN Constipation 11/20/21 [History Last Taken 11/25/21] diltiazem HCl 90 mg tablet 90 tab PO 4X/DAY heart rate 11/20/21 [History Last Taken 11/26/21] furosemide 20 mg tablet 20 tab PO DAILY PRN Edema 11/20/21 [History Last Taken 11/26/21] senna-docusate sodium tablet 2 tab PO DAILY CONSTIPATION 11/20/21 [History Last Taken 11/25/21] sertraline 100 mg tablet 100 tab PO DAILY MOOD 11/20/21 [History Last Taken 11/26/21] cetirizine 10 mg tablet 10 mg PO DAILY allergies 11/21/21 [History Last Taken 11/25/21] cholecalciferol (vitamin D3) 125 mcg (5,000 unit) tablet 125 mcg PO DAILY vitamin 11/21/21 [History Last Taken 11/25/21] magnesium 250 mg tablet 250 mg PO DAILY SUPPLEMENT 11/21/21 [History Last Taken 11/25/21] levofloxacin 750 mg tablet 750 mg PO Q48H #3 tabs 11/23/21 [Rx Last Taken 11/25/21] oxycodone 5 mg capsule 5 mg PO Q4H PRN pain 4 days #20 caps 11/23/21 [Rx Last Taken 11/25/21] aspirin 81 mg chewable tablet 81 mg PO BREAKFAST HEART 11/26/21 [History Last Taken 11/25/21] metoprolol tartrate 25 mg tablet 12.5 mg PO BID BP 11/26/21 [History Last Taken 11/26/21] pantoprazole 40 mg tablet,delayed release 40 mg PO BID GERD 11/26/21 [History Last Taken 11/26/21] Allergy/AdvReac Type Severity Reaction Status Date / Time albuterol Allergy Other Verified 11/29/21 09:19 [From Proventil HFA] Family History Mother CVA (cerebral vascular accident) Heart disease Hypertension HLD (hyperlipidemia) Father Asthma Hypertension PAF (paroxysmal atrial fibrillation) Surgical History (Reviewed 11/27/21 @ 20:17 by Davonte Muñoz H/O kidney removal History of cardiac radiofrequency ablation Hx of tubal ligation Social History household members: none Smoking Status: Former smoker how long ago did patient quit smoking: Quit 08/30/1983, smoked 1/2 ppd since age 27 until quit. alcohol intake: never substance use type: does not use ROS ROS Narrative Negative except above Physical Exam Narrative Alert awake oriented x 3 no obvious distress no pallor no icterus no JVD s1s2 no murmurs lungs clear abdomen soft no organomegaly no edema no cyanosis Lab / Micro Data Result Diagrams: 11/29/21 05:05 11/29/21 05:05 Labs: Laboratory Results - last 24 hr 11/28/21 19:30: Vancomycin Trough 16.8 H 11/29/21 05:05: WBC 15.9 H, RBC 2.82 L, Hgb 8.0 L, Hct 24.3 L, MCV 86.2, MCH 28.4, MCHC 32.9, RDW Std Deviation 48.9 H, RDW Coeff of Flaco 15.4 H, Plt Count 317, MPV 9.5, Immature Gran % (Auto) 1.400 H, Neut % (Auto) 87.8 H, Lymph % (Auto) 1.9 L, [place] % (Auto) 8.8, Eos % (Auto) 0.0, Baso % (Auto) 0.1, Absolute Neuts (auto) 13.9 H, Absolute Lymphs (auto) 0.30 L, Nucleated RBC % 0, Differential Comment SCANNED, Hypochromasia 2+ 11/29/21 05:05: Sodium 129 L, Potassium 3.4 L, Chloride 92 L, Carbon Dioxide 24.0, Anion Gap 13, BUN 39 H, Creatinine 3.25 H, Estim Creat Clear Calc 11.98, Est GFR (MDRD) Af Amer 18 L, Est GFR (MDRD) Non-Af 15 L, BUN/Creatinine Ratio 12.0, Glucose 126 H, Calcium 8.3 L Rhythm Strip Rhythm Strip: Sinus Rhythm Rate: 73 Ectopy: None Radiology Impression Chest X-Ray 11/29/21 10:55 IMPRESSION: No change in the appearance of the chest from reference exam. There is persistent right-sided effusion and right basilar airspace disease. Right-sided PICC line in good position. Electronically Signed: Param Robin MD at 11:16 EDT ,
--- NOTE | 2021-11-29 14:53 | CASEMGMT ---
Social Work Sw received pc from pt daughter in law, Sidra, asking about update on pt transferring to [facility]. SW shared report that a bed was available and that pt can be accepted when medically ready. YSABEL Valente asked when pt would be medically ready. SW shared this is outside SW scope of practice but that SW would have pt's nurse call to discuss. Sidra voiced understanding. SW updated pt nurse, Radha, that YSABEL would like to speak to her about pt's medical status. Radha voiced understanding and discussed intent to call YSABEL. Shawna Deshpande, CONTROLLER INSTRUCTOR, PIPE TURNER
--- NOTE | 2021-11-29 15:11 | CASEMGMT ---
Social Work Palliative medicine here to meet with pt. Per Carmina Jamil, palliative liaison, pt was too anxious to discuss palliative at this time. Written information was left with pt and palliative will followup with a phone call at a later time. MICHAEL Aguillon
[2021-11-29] MEDS: oxyCODONE 5 MG Tablet PO (17:49)
[2021-11-29] MEDS: Atorvastatin Calcium 10 MG Tablet PO (21:44)
[2021-11-30] VITALS (13 sets, daily range): BP systolic 112–116; BP diastolic 58–67; PULSE 94–111; RESP 16–20; TEMP 36.5–37; O2SAT 94–98
[2021-11-30] MEDS: Acetaminophen 500 MG Tablet 1000 MG PO ×2 (03:00→23:07)
[2021-11-30] MEDS: oxyCODONE 5 MG Tablet 10 MG PO ×3 (03:01→19:44)
[2021-11-30] MEDS: 0.9% Normal Saline 1,000 ML 150 ML IV ×4 (05:45→23:35)
[2021-11-30 06:22] LABS: Absolute Lymphocyte Count 0.21 X10^3/uL (0.83-4.51); Basophil# 0.01 X10^3/uL; Basophil% 0.1 % (0-1); Hemoglobin 7.8 g/dL (12.0-15.0); Lymphocyte # 0.21 X10^3/ul (0.83-4.51); Lymphocyte % 1.3 % (19-41); Mean Corp Hgb Conc 32.5 g/dL (32-36); Mean Corpuscular Hgb 28.4 pg (27.0-32.0); Mean Corpuscular Volume 87.3 fL (81-99); Mean Platelet Vol. 9.7 fl (6.2-12.0); Monocyte# 1.57 X10^3/uL; Monocyte% 9.8 % (0-10); NRBC Flagged by Analyzer 0 % (0-5); Neutrophil # 13.98 X10^3/uL (2.7-7.7); POSITIVE DIFFERENTIAL YES; Platelet Count 318 K/mm3 (150-450); RBC Distribution Width CV 15.7 % (11.6-14.6); RBC Distribution Width SD 49.5 fl (35.1-43.9); Red Blood Count 2.75 M/mm3 (4.2-5.4); White Blood Count 16.1 K/mm3 (4.4-11.0)
[2021-11-30 06:45] LABS: Differential Indicated SCAN CRITERIA MET
[2021-11-30 06:54] LABS: Differential Comment SCANNED
[2021-11-30 07:00] LABS: ALB/GLOB Ratio 0.7 RATIO (0.9-2.4); AST(SGOT) 234 U/L (15-37); Alanine Aminotransfer ALT/SGPT 116 U/L (13-56); Albumin, Serum 2.4 g/dL (3.2-5.0); Alkaline Phosphatase 290 U/L (45-117); Anion Gap 10 (5-15); BUN 46 mg/dL (7-18); BUN/Creat Ratio 12.9 RATIO (10-20); Chloride 97 mmol/L (98-107); Creatinine, Serum 3.57 mg/dL (0.55-1.02); EST Glomerular Filtration Rate 13 mL/min (>60); Est Glom Filt Rate - Afr Amer 16 mL/min (>60); Estimated Creatinine Clearance 10.91 ml/min; Globulin 3.4 g/dL (2.2-4.2); Glucose 114 mg/dL (74-106); Potassium 4.2 mmol/L (3.5-5.1); Protein, Total 5.8 g/dL (6.4-8.2); Sodium Level 130 mmol/L (136-145); Vancomycin, Random Level 23.5 ug/mL (0.0-15.0)
--- NOTE | 2021-11-30 07:20 | PN.HOSP_ITS ---
Subjective Subjective Complains of chest pressure similar to when her Vik matt acts up. Still with abdominal pain and now with lower extremity edema. Objective Data Objective Data Vital Signs: Vital Signs Temp Pulse Resp BP Pulse Ox O2 Del Method O2 Flow Rate 36.6 C 94 16 116/60 94 Nasal Cannula 5 11/30/21 02:45 11/30/21 02:45 11/30/21 02:45 11/30/21 02:45 11/30/21 07:13 11/30/21 07:13 11/30/21 07:13 FiO2 100 11/26/21 13:45 Oxygen Flow Rate (L/min) 5 Oxygen Delivery Method Nasal Cannula Weight: 60.3 kg Body Mass Index (BMI) 25.1 Intake & Output: Intake and Output for Last 24 Hours 11/28/21 11/29/21 11/30/21 23:59 23:59 23:59 Intake Total 2550.00 / 2550.00 1942.5 / 1942.5 1050 / 1050 Output Total 400 / 400 600 / 600 Balance 2150.00 / 2150.00 1342.5 / 1342.5 1050 / 1050 Lab / Micro Data Result Diagrams: 11/30/21 05:24 11/30/21 05:24 Labs: Laboratory Results - last 24 hr 11/30/21 05:24: Random Vancomycin 23.5 H 11/30/21 05:24: WBC 16.1 H, RBC 2.75 L, Hgb 7.8 L, Hct 24.0 L, MCV 87.3, MCH 28.4, MCHC 32.5, RDW Std Deviation 49.5 H, RDW Coeff of Flaco 15.7 H, Plt Count 318, MPV 9.7, Immature Gran % (Auto) 1.800 H, Neut % (Auto) 87.0 H, Lymph % (Auto) 1.3 L, [place] % (Auto) 9.8, Eos % (Auto) 0.0, Baso % (Auto) 0.1, Absolute Neuts (auto) 14.0 H, Absolute Lymphs (auto) 0.21 L, Nucleated RBC % 0, Differential Comment SCANNED, Diff Path Review August11/30/21 05:24: Sodium 130 L, Potassium 4.2, Chloride 97 L, Carbon Dioxide 23.0, Anion Gap 10, BUN 46 H, Creatinine 3.57 H, Estim Creat Clear Calc 10.91, Est GFR (MDRD) Af Amer 16 L, Est GFR (MDRD) Non-Af 13 L, BUN/Creatinine Ratio 12.9, Glucose 114 H, Uric Acid 15.0 H, Calcium 8.0 L, Total Bilirubin 1.10 H, AST 234 H, ALT 116 H, Alkaline Phosphatase 290 H, Total Protein 5.8 L, Albumin 2.4 L, Globulin 3.4, Albumin/Globulin Ratio 0.7 L Micro: Microbiology 11/27/21 00:03 Urine, Clean Catch Streptococcus pneumoniae Antigen (M - Final Radiography Diagnostic Testing: Radiology Impression Chest X-Ray 11/29/21 10:55 IMPRESSION: No change in the appearance of the chest from reference exam. There is persistent right-sided effusion and right basilar airspace disease. Right-sided PICC line in good position. Electronically Signed: Param Robin MD at 11:16 EDT , Rhythm Strip Rhythm Strip: Sinus Rhythm Rate: 73 Ectopy: None Physical Exam Const alert Constitutional Narrative: Anxious. Afebrile. No respiratory distress. No conversational dyspnea. Resp normal respiratory effort, no retractions, no use of accessory muscles and clear to auscultation bilaterally Cardio regular rate, regular rhythm, S1 normal heart sound and S2 normal heart sound GI GI Narrative: Distended. Right upper quadrant abdominal pain. Hepatomegaly. 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 Jauregui 11/27, patient to have port placement this week. Pt will need XRT, but priority is for chemotherapy. He plans to start chemotherapy as outpt on 12/02. I informed him that is not for certain that pt could be ready for discharge by then. Port placed 11/29 (2) Postobstructive pneumonia: PLAN: Ruled out pulmonary toilet no bronchoscopy planned Infectious work-up so far negative Given negative cultures and pneumonia work-up so far during this in the previous admission we will discontinue antibiotics. (3) GREG (acute kidney injury): PLAN: Worsening despite IV fluids solitary kidney (other donated) Secondary to prerenal azotemia No obstructive process noted on ultrasound creatinine steadily worsened since 11/21 Nephrology following Plan: * IVF * avoid nephrotoxic agents. (4) Pain, cancer: PLAN: abdominal pain no SBO/Ileus. Likely due to hepatic metastatic disease Patient advised to inform us of her abdominal pain is intractable or if the pain medication does not seem to be as effective. (5) Hyperuricemia: PLAN: Most likely due to the underlying malignancy Not currently undergoing chemotherapy but may be a higher risk for further hyperuricemia As kidney function continues to worsen and uric acid greater than 15 rasburicase would be indicated, however, it is not available at [facility]. Discussed with pharm david and they said they can order that. Did discuss with oncology who initially recommended but later wished to hold off on it. We will add allopurinol until further input by oncology. LDH elevated at 1886. PLAN: Plan VTE prophylaxis with enoxaparin Disposition: To be determined. Ideally, the plan is for the patient to go to [facility] when she is medically stable. Patient will be followed by oncology Dr. Crenshaw there. He will continue with the chemotherapy. Patient has Medicare so will not require any prior authorization beforehand. But given her overall worsening clinical status it is unclear if that could be achieved. Greater than 35 minutes of which greater than 50% of time discussing with the patient about pain control, renal failure, hyperuricemia and also reminding the patient that she makes decisions about what she does but with that ultimate decides what she wants to do and what she can tolerate. I did remind the patient that oncology is confident that the chemotherapy will help alleviate some of her tumor burden and therefore is some of her symptoms. She at this time wishes to continue to try to get to the point of chemotherapy. If patient decides at some point to not pursue any additional treatment then she would be hospice appropriate and hospice care center would be very appropriate. Charges/Coding Visit Charges Inpatient E&M: 04832 Subs Hosp L3
--- NOTE | 2021-11-30 07:22 | PCM.RX.CS ---
Consult Pharmacy has been consulted to manage selected antiobiotic: Vancomycin Type of Consult: Follow-up Labs: Sodium 130 mmol/L (136-145) L 11/30/21 05:24 Potassium 4.2 mmol/L (3.5-5.1) 11/30/21 05:24 Chloride 97 mmol/L (98-107) L 11/30/21 05:24 Carbon Dioxide 23.0 mmol/L (21.0-32.0) 11/30/21 05:24 Anion Gap 10 (5-15) 11/30/21 05:24 BUN 46 mg/dL (7-18) H 11/30/21 05:24 Creatinine 3.57 mg/dL (0.55-1.02) H 11/30/21 05:24 Est GFR (MDRD) Af Amer 16 mL/min (>60) L 11/30/21 05:24 Est GFR (MDRD) Non-Af 13 mL/min (>60) L 11/30/21 05:24 BUN/Creatinine Ratio 12.9 RATIO (10-20) 11/30/21 05:24 Glucose 114 mg/dL (74-106) H 11/30/21 05:24 Vancomycin Trough 16.8 ug/mL (5.0-15.0) H 11/28/21 19:30 Random Vancomycin 23.5 ug/mL (0.0-15.0) H 11/30/21 05:24 Microbiology: Microbiology 11/27/21 00:03 Urine, Clean Catch Streptococcus pneumoniae Antigen (M - Final Pharmacy Plan for Drug Dosing: Vanc level > 20, no dose today. Re-check random with a.m. labs tomorrow. Pharmacy Service will continue to monitor and adjust dosing as required. Follow-Up Labs: Trough Vancomycin - 12/01 0600 Random
[2021-11-30] MEDS: ALPRAZolam 0.5 MG Tablet PO (08:11)
[2021-11-30] MEDS: HYDROmorphone 0.5 MG/0.5 ML SYRINGE IV ×2 (08:12→22:51)
[2021-11-30] MEDS: 0.9% Saline Lock 10 ML Syringe IV (08:12)
--- NOTE | 2021-11-30 08:18 | EKG12_ITS ---
Test Reason : AFIB Blood Pressure : / mmHG Vent. Rate : 102 BPM Atrial Rate : 102 BPM P-R Int : 142 ms QRS Dur : 084 ms QT Int : 332 ms P-R-T Axes : 027 007 023 degrees QTc Int : 432 ms Sinus tachycardia Nonspecific ST abnormality Abnormal ECG When compared with ECG of 28-NOV-2021 07:37, MANUAL COMPARISON REQUIRED, DATA IS UNCONFIRMED Confirmed by ELBA MEJIA, ADA ([id number]), purchasing expeditor TILA DUNCAN ([id number]) on 12/04/2021 9:35:16 AM Referred By: ADOLFO Confirmed By:ADA ARREOLA MD
--- NOTE | 2021-11-30 09:09 | ONC.PN.INPT ---
Subjective Subjective Upon entering the room patient is sitting upright in bed. She is alert and oriented but drowsy, cites she did not sleep very well last night. States she is hungry looking forward to breakfast. Abdominal pain continues, reports at this time pain is at a tolerable level with current analgesia. Physical Exam Narrative ECOG 3 Const alert and oriented x3 General Appearance: cooperative and ill appearing HEENT normocephalic Eyes no scleral icterus Neck no lymphadenopathy and no JVD Lymph Lymphatic: no lymphadenopathy noted Resp Auscultation: diminished lung sounds right lower Cardio regular rate and regular rhythm GI soft to palpation Palpation: tender and hepatomegaly; Negative for splenomegaly Extremity no clubbing, cyanosis or edema Extremity Narrative: SCDs on Skin no rashes or lesions noted General Skin Exam: ecchymosis Neuro CN's II-XII intact bilaterally, moves all extremities and no focal motor deficits Psych mental status grossly normal Vital Signs Temperature 97.9 F 11/30/21 02:45 Temperature Source Oral 11/30/21 02:45 Pulse Rate 94 11/30/21 02:45 Pulse Strength Normal (2+) 11/27/21 22:00 Respiratory Rate 16 11/30/21 02:45 Respiratory Effort 11/30/21 04:00 Respiratory Depth Deep 11/30/21 04:00 Respiratory Pattern Normal 11/29/21 21:30 Blood Pressure 116/60 11/30/21 02:45 Blood Pressure Mean 78 11/30/21 02:45 Blood Pressure Source Monitor 11/30/21 02:45 Blood Pressure Position Semi-Fowlers 11/30/21 02:45 Blood Pressure Location Left Arm 11/30/21 02:45 Pulse Ox 94 11/30/21 07:13 Oxygen Delivery Method Nasal Cannula 11/30/21 07:13 Oxygen Flow Rate (L/min) 5 11/30/21 07:13 Fraction of Inspired Oxygen (FIO2) 100 11/26/21 13:45 Laboratory Results - last 24 hr 11/30/21 05:24: Random Vancomycin 23.5 H 11/30/21 05:24: WBC 16.1 H, RBC 2.75 L, Hgb 7.8 L, Hct 24.0 L, MCV 87.3, MCH 28.4, MCHC 32.5, RDW Std Deviation 49.5 H, RDW Coeff of Flaco 15.7 H, Plt Count 318, MPV 9.7, Immature Gran % (Auto) 1.800 H, Neut % (Auto) 87.0 H, Lymph % (Auto) 1.3 L, [place] % (Auto) 9.8, Eos % (Auto) 0.0, Baso % (Auto) 0.1, Absolute Neuts (auto) 14.0 H, Absolute Lymphs (auto) 0.21 L, Nucleated RBC % 0, Differential Comment SCANNED, Diff Path Review August11/30/21 05:24: Sodium 130 L, Potassium 4.2, Chloride 97 L, Carbon Dioxide 23.0, Anion Gap 10, BUN 46 H, Creatinine 3.57 H, Estim Creat Clear Calc 10.91, Est GFR (MDRD) Af Amer 16 L, Est GFR (MDRD) Non-Af 13 L, BUN/Creatinine Ratio 12.9, Glucose 114 H, Uric Acid 15.0 H, Calcium 8.0 L, Total Bilirubin 1.10 H, AST 234 H, ALT 116 H, Alkaline Phosphatase 290 H, Total Protein 5.8 L, Albumin 2.4 L, Globulin 3.4, Albumin/Globulin Ratio 0.7 L Diagnostic Data Abdomen Ultrasound 11/26/21 14:47 IMPRESSION: Hepatomegaly with multiple masses visualized within the liver, this demonstrates no significant change in comparison to the prior study. Right lower lobe lung consolidation with small right pleural effusion demonstrates no change in comparison to the prior study. Improved aeration of the left lower lung rodriguez in comparison to the prior study. Moderate-sized hiatus hernia seen. Electronically Signed: Roel Ayoub MD at 16:19 EDT Reading Location ID and State: [facility] / [place] Tel , Service support , Chest Ultrasound 11/26/21 15:22 IMPRESSION: No sonographic evidence of significant pleural effusion, no intervention was performed. Electronically Signed: Roel Ayoub MD at 16:49 EDT Reading Location ID and State: [facility] / [place] Tel , Service support , Abdomen/Pelvis CT 11/26/21 15:38 IMPRESSION: Hepatomegaly with multiple masses visualized within the liver, this demonstrates no significant change in comparison to the prior study. Right lower lobe lung consolidation with small right pleural effusion demonstrates no change in comparison to the prior study. Improved aeration of the left lower lung rodriguez in comparison to the prior study. Moderate-sized hiatus hernia seen. Electronically Signed: Roel Ayoub MD at 16:19 EDT Reading Location ID and State: [facility] / [place] Tel , Service support , Brain MRI 11/27/21 09:00 IMPRESSION: A 1.1 cm faintly circumferential enhancing lesion visualized in the right cerebellum suggestive of metastasis. Two lesions are visualized in the cortical guidewire in that demonstrate increased signal on DWI that could either represent a small metastasis or subtle lacunar infarcts measuring less than 0.4 cm. Electronically Signed: Roel Ayoub MD at 16:26 EDT Reading Location ID and State: [facility] / [place] Tel , Service support , Renal Ultrasound 11/28/21 07:57 IMPRESSION: Increased echogenicity of the right kidney suggestive of medical renal disease, no evidence of right renal masses or hydronephrosis. Left kidney is absent. Incidental note is made of multiple masses in the liver. . Electronically Signed: Roel Ayoub MD at 9:54 EDT Reading Location ID and State: [facility] / [place] Tel , Service support , Chest X-Ray 11/29/21 10:55 IMPRESSION: No change in the appearance of the chest from reference exam. There is persistent right-sided effusion and right basilar airspace disease. Right-sided PICC line in good position. Electronically Signed: Param Robin MD at 11:16 EDT , Assessment & Plan Assessment/Plan (1) Small cell lung cancer: (2) Regional lymph node metastasis present: (3) Brain metastasis: (4) Liver metastases: (5) Hyperuricemia: PLAN: Plan 71-year-old female ex-smoker presenting with stage IV extensive widely metastatic small cell lung cancer pathologically confirmed liver metastases.? Patient has radiologic evidence for regional mediastinal lymph node metastases with compression atelectasis of the right lower lobe, pleural metastases and at least 1 metastatic lesion in the posterior fossa causing headache.? She is quite symptomatic from systemic disease more so than Brain metastases. Now with declining renal function and hyperuricemia. Chronic comorbid conditions: Hypertension, dyslipidemia, acute on chronic renal insufficiency. Plan: 1.? Continue supportive treatment as already in progress by primary service with pain control and supplemental oxygen. Hyperuricemia now evidence of acid 15. Kidney function continues to decline, creatinine now 3.57. Await nephrology input today. May need to use rasburicase, will base that decision on LDH that is still pending and nephrology recommendations. For now, attempt to optimize kidney function by maintaining adequate hydration and input output balance. Add allopurinol. Discussed with dr. Saleem. 2.? Patient will need to complete staging with a bone scan, nonurgent can be done after discharge. 3.? Central venous access placed yesterday per . 4.? Systemic therapy, tentatively planned to start Thursday, December 02, 2021 with combination chemotherapy immune therapy (carboplatin, etoposide, atezolizumab). Omit atezolizumab with first cycle IF patient unable to initiate chemotherapy in the outpatient setting. Ideally, would like to see kidney function improve as [place]-based chemo is based on clearance. Goal of treatment is palliative plus or minus survival benefit. Case was discussed also with Dr. Varghese yesterday, medical oncologist at [facility], as the family has requested she be transferred to that facility's transitional care unit upon discharge with further oncology care provided there. 5.? Brain metastases, less morbid at this stage then the systemic disease but will need to be addressed if she becomes stable following systemic therapy.? In the interim continue dexamethasone 4 mg every morning and referred to radiation oncology.? 6.? LFTs are increasingly elevated compared to yesterday's values, bilirubin newly elevated as well. Advanced directives discussed patient requested DNR if her condition continues to deteriorate. Case discussed with Dr. Jauregui who was in agreement with the aforementioned plan.
[2021-11-30 09:39] LABS: LDH 1886 U/L (84-246)
[2021-11-30] MEDS: fentaNYL 25 MCG Patch TD (09:40)
[2021-11-30] MEDS: Cholecalciferol (Vit D3) 125 MCG CAPSULE (5,000 UNITS) PO (09:42)
[2021-11-30] MEDS: guaiFENesin 1,200 MG Tablet 1200 MG PO ×2 (09:42→23:02)
[2021-11-30] MEDS: dilTIAZem 30 MG Tablet 90 MG PO ×4 (09:44→23:01)
[2021-11-30] MEDS: dexAMETHasone 4 MG Tablet PO (09:44)
[2021-11-30] MEDS: Sertraline 100 MG Tablet PO (09:45)
[2021-11-30] MEDS: Pantoprazole Sodium 40 MG Tablet PO ×2 (09:45→23:02)
[2021-11-30] MEDS: Enoxaparin 30 MG/0.3 ML Syringe SC (09:45)
[2021-11-30] MEDS: Metoprolol Tartrate 25 MG Tablet 12.5 MG PO ×2 (09:48→23:02)
[2021-11-30] MEDS: Allopurinol 100 MG Tablet PO ×2 (10:38→18:09)
[2021-11-30] MEDS: Atorvastatin Calcium 10 MG Tablet PO (23:02)
[2021-12-01] VITALS (11 sets, daily range): BP systolic 102–121; BP diastolic 52–73; PULSE 69–102; RESP 12–18; TEMP 36.2–36.7; O2SAT 94
[2021-12-01] MEDS: oxyCODONE 5 MG Tablet 10 MG PO ×4 (02:38→22:49)
[2021-12-01] MEDS: HYDROmorphone 0.5 MG/0.5 ML SYRINGE IV (06:21)
[2021-12-01 06:24] LABS: Absolute Lymphocyte Count 0.25 X10^3/uL (0.83-4.51); Absolute Neutrophil Count 13.3 X10^3/uL (2.0-7.7); Basophil# 0.01 X10^3/uL; Basophil% 0.1 % (0-1); Hematocrit 22.3 % (37-47); Hemoglobin 7.2 g/dL (12.0-15.0); Lymphocyte # 0.25 X10^3/ul (0.83-4.51); Lymphocyte % 1.6 % (19-41); Mean Corp Hgb Conc 32.3 g/dL (32-36); Mean Corpuscular Hgb 28.2 pg (27.0-32.0); Mean Corpuscular Volume 87.5 fL (81-99); Mean Platelet Vol. 9.7 fl (6.2-12.0); Monocyte# 1.36 X10^3/uL; Monocyte% 8.9 % (0-10); NRBC Flagged by Analyzer 0.3 % (0-5); Neutrophil # 13.32 X10^3/uL (2.7-7.7); Neutrophil % 87.2 % (47-70); POSITIVE DIFFERENTIAL YES; Platelet Count 285 K/mm3 (150-450); RBC Distribution Width CV 15.9 % (11.6-14.6); RBC Distribution Width SD 51.2 fl (35.1-43.9); Red Blood Count 2.55 M/mm3 (4.2-5.4); White Blood Count 15.3 K/mm3 (4.4-11.0)
[2021-12-01 06:33] LABS: Differential Indicated SCAN CRITERIA MET
[2021-12-01 07:00] LABS: Differential Comment SCANNED
[2021-12-01 07:02] LABS: ALB/GLOB Ratio 0.7 RATIO (0.9-2.4); AST(SGOT) 304 U/L (15-37); Alanine Aminotransfer ALT/SGPT 139 U/L (13-56); Albumin, Serum 2.3 g/dL (3.2-5.0); Alkaline Phosphatase 385 U/L (45-117); Anion Gap 12 (5-15); BUN 52 mg/dL (7-18); BUN/Creat Ratio 13.4 RATIO (10-20); Chloride 102 mmol/L (98-107); Creatinine, Serum 3.89 mg/dL (0.55-1.02); EST Glomerular Filtration Rate 12 mL/min (>60); Est Glom Filt Rate - Afr Amer 15 mL/min (>60); Estimated Creatinine Clearance 10.01 ml/min; Globulin 3.3 g/dL (2.2-4.2); Glucose 110 mg/dL (74-106); Potassium 4.2 mmol/L (3.5-5.1); Protein, Total 5.6 g/dL (6.4-8.2); Sodium Level 132 mmol/L (136-145)
--- NOTE | 2021-12-01 07:45 | PN.HOSP_ITS ---
Subjective Subjective Pain controlled. More edematous. Objective Data Objective Data Vital Signs: Vital Signs Temp Pulse Resp BP Pulse Ox O2 Del Method O2 Flow Rate 36.7 C 75 16 102/52 L 94 Nasal Cannula 6 12/01/21 04:00 12/01/21 04:00 12/01/21 04:00 12/01/21 04:00 12/01/21 04:00 12/01/21 04:00 12/01/21 04:00 FiO2 100 11/26/21 13:45 Oxygen Flow Rate (L/min) 6 Oxygen Delivery Method Nasal Cannula Weight: 60.3 kg Body Mass Index (BMI) 25.1 Intake & Output: Intake and Output for Last 24 Hours 11/29/21 11/30/21 12/01/21 23:59 23:59 23:59 Intake Total 1942.5 / 1942.5 3775.0 / 3775.0 Output Total 600 / 600 Balance 1342.5 / 1342.5 3775.0 / 3775.0 -1 / -1 Lab / Micro Data Result Diagrams: 12/01/21 06:00 12/01/21 06:00 Labs: Laboratory Results - last 24 hr 11/30/21 08:04: Lactate Dehydrogenase 1886 H 12/01/21 06:00: WBC 15.3 H, RBC 2.55 L, Hgb 7.2 L, Hct 22.3 L, MCV 87.5, MCH 28.2, MCHC 32.3, RDW Std Deviation 51.2 H, RDW Coeff of Flaco 15.9 H, Plt Count 285, MPV 9.7, Immature Gran % (Auto) 2.200 H, Neut % (Auto) 87.2 H, Lymph % (Auto) 1.6 L, [place] % (Auto) 8.9, Eos % (Auto) 0.0, Baso % (Auto) 0.1, Absolute Neuts (auto) 13.3 H, Absolute Lymphs (auto) 0.25 L, Nucleated RBC % 0.3, Differential Comment SCANNED 12/01/21 06:00: Sodium 132 L, Potassium 4.2, Chloride 102, Carbon Dioxide 18.0 L , Anion Gap 12, BUN 52 H, Creatinine 3.89 H, Estim Creat Clear Calc 10.01, Est GFR (MDRD) Af Amer 15 L, Est GFR (MDRD) Non-Af 12 L, BUN/Creatinine Ratio 13.4, Glucose 110 H, Calcium 8.0 L, Total Bilirubin 1.10 H, AST 304 H, ALT 139 H, Alkaline Phosphatase 385 H, Total Protein 5.6 L, Albumin 2.3 L, Globulin 3.3, Albumin/Globulin Ratio 0.7 L Micro: Microbiology 11/27/21 00:03 Urine, Clean Catch Streptococcus pneumoniae Antigen (M - Final Rhythm Strip Rhythm Strip: Sinus Rhythm Rate: 73 Ectopy: None Physical Exam Const Constitutional Narrative: groggy. audible coarse respirations. Resp normal respiratory effort, no retractions, no use of accessory muscles and clear to auscultation bilaterally Cardio regular rate, regular rhythm, S1 normal heart sound and S2 normal heart sound GI GI Narrative: hepatomegaly. Extremity General Extremity: edema bilateral lower extremity Details: moderate Neuro Sensorium / Orientation: awake Assessment & Plan Assessment/Plan (1) Small cell carcinoma of lung metastatic to liver: PLAN: Stage IV: Liver and brain metastasis MRI brain shows 1/1 cm lesion in right cerebellum SURI Jauregui 11/27, patient to have port placement this week. Pt will need XRT, but priority is for chemotherapy. He plans to start chemotherapy as outpt on 12/02. I informed him that is not for certain that pt could be ready for discharge by then. Port placed 11/29 12/01: SURI Jauregui plan is to start a low-dose chemotherapy starting the . He is unsure how effective the dose will be because it doses can be lower due to her kidney function. Immunotherapy will not be started due to cost and also it is a delayed effect. He has been conversation with Dr. Maddox whom the patient would follow-up with if she survives this chemotherapy. (2) Postobstructive pneumonia: PLAN: Ruled out pulmonary toilet no bronchoscopy planned Infectious work-up so far negative Given negative cultures and pneumonia work-up so far during this in the previous admission we will discontinue antibiotics. (3) GREG (acute kidney injury): PLAN: Worsening despite IV fluids solitary kidney (other donated) Secondary to prerenal azotemia No obstructive process noted on ultrasound creatinine steadily worsened since 11/21 Nephrology following 12/01: SURI Amos, given her edema, recommends cutting back on the IV fluids. Plan: * IVF * avoid nephrotoxic agents. (4) Pain, cancer: PLAN: abdominal pain no SBO/Ileus. Likely due to hepatic metastatic disease Patient advised to inform us of her abdominal pain is intractable or if the pain medication does not seem to be as effective. (5) Hyperuricemia: PLAN: Most likely due to the underlying malignancy Not currently undergoing chemotherapy but may be a higher risk for further hyp eruricemia As kidney function continues to worsen and uric acid greater than 15 rasburicase would be indicated, however, it is not available at [facility]. Discussed with pharmacy and they said they can order that. Did discuss with oncology who initially recommended but later wished to hold off on it. We will add allopurinol until further input by oncology. LDH elevated at 1886. Though this may be skewed upwards given her acute kidney injury 12/01: SURI Amos, Morgan and Cheli Long will give 3 mg of rasburicase. Follow-up uric acid on the eighth and depending on the number determine if she needs another dose. PLAN: Plan VTE prophylaxis with enoxaparin Disposition: To be determined. Ideally, the plan is for the patient to go to [facility] when she is medically stable. Patient will be followed by oncology Dr. Crenshaw there. He will continue with the chemotherapy. Patient has Medicare so will not require any prior authorization beforehand. But given her overall worsening clinical status it is unclear if that could be achieved. Prognosis poor. 12/01: With the patient's permission I discussed with the patient's [id number], Sidra. The patient preferred to defer to what family members to notify with the patient's [id number] and her son. Explained to Sidra that I am not sure the patient is going to survive as she has had a rapid decline over the past few days. I have recommended that she notify close family members about the patient's condition so that may have the opportunity to speak with her. I told her that I did not know how the patient was going to be tomorrow but given her current trajectory it could be far worse than it is today. She was going to notify the patient's daughter. Greater than 60 minutes of which greater than for present time was coordinate the patient's care in regards to discussing with oncology with the chemotherapy plan is and also discussing with the oncology and nephrology about the rasburicase and then talking with pharmacy to get that ordered. Charges/Coding Visit Charges Inpatient E&M: 45195 Subs Hosp L3
[2021-12-01 08:05] LABS: Uric Acid 14.6 mg/dL (2.6-6.0)
[2021-12-01] MEDS: guaiFENesin 1,200 MG Tablet 1200 MG PO ×2 (08:41→22:57)
[2021-12-01] MEDS: dilTIAZem 30 MG Tablet 90 MG PO ×3 (08:41→22:56)
[2021-12-01] MEDS: Pantoprazole Sodium 40 MG Tablet PO ×2 (08:41→22:57)
[2021-12-01] MEDS: Allopurinol 100 MG Tablet PO ×2 (08:41→18:33)
[2021-12-01] MEDS: Metoprolol Tartrate 25 MG Tablet 12.5 MG PO ×2 (08:42→22:56)
[2021-12-01] MEDS: Cholecalciferol (Vit D3) 125 MCG CAPSULE (5,000 UNITS) PO (08:43)
[2021-12-01] MEDS: dexAMETHasone 4 MG Tablet PO (08:43)
[2021-12-01] MEDS: Loratadine 10 MG Tablet PO (08:43)
[2021-12-01] MEDS: Sertraline 100 MG Tablet PO (08:45)
[2021-12-01] MEDS: ALPRAZolam 0.5 MG Tablet PO (08:58)
[2021-12-01] MEDS: Acetaminophen 500 MG Tablet 1000 MG PO ×2 (08:58→22:49)
[2021-12-01] MEDS: 0.9% Normal Saline 1,000 ML 150 ML IV (08:59)
[2021-12-01] MEDS: Atorvastatin Calcium 10 MG Tablet PO (22:56)
[2021-12-01] MEDS: 0.9% Normal Saline 1,000 ML 50 ML IV (23:36)
[2021-12-02] VITALS (9 sets, daily range): BP systolic 98–115; BP diastolic 54–68; PULSE 68–88; RESP 12–20; TEMP 36.6–37.1; O2SAT 92–97
[2021-12-02] MEDS: HYDROmorphone 0.5 MG/0.5 ML SYRINGE IV (02:11)
[2021-12-02] MEDS: Ipratropium 0.5 MG/2.5 ML SOLUTION INHALATION ×3 (03:15→14:57)
--- NOTE | 2021-12-02 05:06 | NURSING ---
Pt is resting in bed, breathing is less labored, no more audible wheezing. Pt states her pain is more controlled now.
[2021-12-02 06:26] LABS: Absolute Lymphocyte Count 0.33 X10^3/uL (0.83-4.51); Basophil# 0.02 X10^3/uL; Basophil% 0.1 % (0-1); Hemoglobin 7.4 g/dL (12.0-15.0); Lymphocyte # 0.33 X10^3/ul (0.83-4.51); Lymphocyte % 2.1 % (19-41); Mean Corp Hgb Conc 30.8 g/dL (32-36); Mean Corpuscular Hgb 27.5 pg (27.0-32.0); Mean Corpuscular Volume 89.2 fL (81-99); Mean Platelet Vol. 9.7 fl (6.2-12.0); Monocyte# 1.28 X10^3/uL; Monocyte% 8.3 % (0-10); NRBC Flagged by Analyzer 1.4 % (0-5); Neutrophil # 12.96 X10^3/uL (2.7-7.7); Neutrophil % 84.5 % (47-70); POSITIVE COUNT YES; POSITIVE DIFFERENTIAL YES; POSITIVE MORPHOLOGY YES; Platelet Count 276 K/mm3 (150-450); RBC Distribution Width CV 16.6 % (11.6-14.6); Red Blood Count 2.69 M/mm3 (4.2-5.4); White Blood Count 15.4 K/mm3 (4.4-11.0)
[2021-12-02 06:29] LABS: Differential Indicated SCAN CRITERIA MET
[2021-12-02 06:52] LABS: ALB/GLOB Ratio 0.7 RATIO (0.9-2.4); AST(SGOT) 381 U/L (15-37); Alanine Aminotransfer ALT/SGPT 151 U/L (13-56); Albumin, Serum 2.3 g/dL (3.2-5.0); Alkaline Phosphatase 374 U/L (45-117); Anion Gap 16 (5-15); BUN 63 mg/dL (7-18); BUN/Creat Ratio 14.5 RATIO (10-20); Calcium,Total 8.3 mg/dL (8.5-10.1); Chloride 101 mmol/L (98-107); Creatinine, Serum 4.34 mg/dL (0.55-1.02); EST Glomerular Filtration Rate 11 mL/min (>60); Est Glom Filt Rate - Afr Amer 13 mL/min (>60); Estimated Creatinine Clearance 8.97 ml/min; Globulin 3.5 g/dL (2.2-4.2); Glucose 98 mg/dL (74-106); Protein, Total 5.8 g/dL (6.4-8.2); Sodium Level 131 mmol/L (136-145); Uric Acid 9.8 mg/dL (2.6-6.0)
[2021-12-02 06:54] LABS: Anisocytosis 1+
[2021-12-02 08:06] LABS: Allen Test Positive; Base Excess -16 mmol/L (-2 to +2); Bicarbonate 12.2 mmol/L (22-26); Blood Gas Specimen Type ART; O2 Delivery Device Cannula; PO2 84 mmHG (75-100); SITE L Radial; SO2 94 % (95-99); Total Carbon Dioxide 13 mmol/L; pCO2 31.8 mmHg (35-45); pH 7.19 (7.35-7.45)
[2021-12-02] MEDS: oxyCODONE 5 MG Tablet 10 MG PO (08:21)
[2021-12-02] MEDS: Acetaminophen 500 MG Tablet 1000 MG PO (08:21)
[2021-12-02] MEDS: HYDROmorphone 0.5 MG/0.5 ML SYRINGE 1 MG IV (09:40)
[2021-12-02] MEDS: 0.9% Saline Lock 10 ML Syringe IV (09:41)
--- NOTE | 2021-12-02 10:32 | CASEMGMT ---
Social Work SW spoke with physician during rounds. Physician requesting referral to hospice and that pt be evaluated for IPU. SW attempted to meet with pt and pt is drowsy and not able to converse with this SW. Phone call to pt HCPOA Sidra to discuss situation and Sidra is agreeable to hospice consult and IPU. Sidra requesting pt go to IPU in [facility]. Phone call to [facility] who state they no longer have an IPU. Sidra updated and is agreeable to [facility] and [place] [facility]. Referral made to [facility] hospice and clinicals faxed. [facility] to call Sidra and set up appointment for today. Sidra is currently on her way to see pt from out of town. MICHAEL Aguillon
[2021-12-02 11:27] LABS: LDH 2858 U/L (84-246)
--- NOTE | 2021-12-02 11:43 | ONC.PN.INPT ---
Subjective Subjective Patient's course over the past few days reviewed in EMR. I asked the patient how she felt, she replied it hurts like hell. I asked her if she needed anything in addition to painkillers, she replied called Sidra. Physical Exam Const Constitutional Narrative: ECOG 4 General Appearance: in distress, lethargic and grossly edematous Orientation / Consciousness: oriented to person HEENT Head and Scalp: atraumatic Eyes no scleral icterus Neck no lymphadenopathy Resp Effort and Inspection: Negative for able to speak in complete sentences Auscultation: diminished lung sounds right Cardio regular rate and regular rhythm GI Palpation: hepatomegaly Extremity General Extremity: edema bilateral lower extremity Details: severe Skin General Skin Exam: ecchymosis Neuro Motor Exam: general weakness Psych cooperative Vital Signs Temperature 98.7 F 12/02/21 08:10 Temperature Source Temporal 12/02/21 08:10 Pulse Rate 88 12/02/21 08:10 Pulse Strength Normal (2+) 11/27/21 22:00 Respiratory Rate 18 12/02/21 08:10 Respiratory Effort Labored 12/02/21 04:00 Respiratory Depth Normal 12/02/21 04:00 Respiratory Pattern Normal 12/02/21 07:17 Blood Pressure 115/68 12/02/21 08:10 Blood Pressure Mean 83 12/02/21 08:10 Blood Pressure Source Monitor 12/02/21 08:10 Blood Pressure Position Sitting 12/02/21 08:10 Blood Pressure Location Left Arm 12/02/21 08:10 Pulse Ox 97 12/02/21 08:10 Oxygen Delivery Method High Flow 12/02/21 08:10 Oxygen Flow Rate (L/min) 8 12/02/21 08:10 Fraction of Inspired Oxygen (FIO2) 100 11/26/21 13:45 Laboratory Results - last 24 hr 12/02/21 06:05: WBC 15.4 H, RBC 2.69 L, Hgb 7.4 L, Hct 24.0 L, MCV 89.2, MCH 27.5, MCHC 30.8 L, RDW Std Deviation 54.0 H, RDW Coeff of Flaco 16.6 H, Plt Count 276, MPV 9.7, Immature Gran % (Auto) 5.000 H, Neut % (Auto) 84.5 H, Lymph % (Auto) 2.1 L, [place] % (Auto) 8.3, Eos % (Auto) 0.0, Baso % (Auto) 0.1, Absolute Neuts (auto) 13.0 H, Absolute Lymphs (auto) 0.33 L, Nucleated RBC % 1.4, Anisocytosis 1+ 12/02/21 06:05: Sodium 131 L, Potassium 5.0, Chloride 101, Carbon Dioxide 14.0 L, Anion Gap 16 H, BUN 63 H, Creatinine 4.34 H, Estim Creat Clear Calc 8.97, Est GFR (MDRD) Af Amer 13 L, Est GFR (MDRD) Non-Af 11 L, BUN/Creatinine Ratio 14.5, Glucose 98, Uric Acid 9.8 H, Calcium 8.3 L, Total Bilirubin 1.20 H, AST 381 H, ALT 151 H, Alkaline Phosphatase 374 H, Total Protein 5.8 L, Albumin 2.3 L, Globulin 3.5, Albumin/Globulin Ratio 0.7 L 12/02/21 06:05: Lactate Dehydrogenase 2858 H Laboratory Tests 11/20/21 11/21/21 11/22/21 23:28 06:49 06:30 Creatinine 1.52 H 1.32 H 1.43 H Uric Acid Total Bilirubin 11/23/21 11/26/21 11/27/21 05:24 13:40 05:54 Creatinine 1.66 H 1.78 H 1.91 H Uric Acid Total Bilirubin 0.90 11/28/21 11/29/21 11/30/21 05:49 05:05 05:24 Creatinine 2.52 H 3.25 H 3.57 H Uric Acid 15.0 H Total Bilirubin 1.10 H 12/01/21 12/01/21 12/02/21 06:00 06:00 06:05 Creatinine 3.89 H 4.34 H Uric Acid 14.6 H 9.8 H Total Bilirubin 1.10 H 1.20 H Diagnostic Data Abdomen Ultrasound 11/26/21 14:47 IMPRESSION: Hepatomegaly with multiple masses visualized within the liver, this demonstrates no significant change in comparison to the prior study. Right lower lobe lung consolidation with small right pleural effusion demonstrates no change in comparison to the prior study. Improved aeration of the left lower lung rodriguez in comparison to the prior study. Moderate-sized hiatus hernia seen. Electronically Signed: Roel Ayoub MD at 16:19 EDT Reading Location ID and State: [facility] / [place] Tel , Service support , Chest Ultrasound 11/26/21 15:22 IMPRESSION: No sonographic evidence of significant pleural effusion, no intervention was performed. Electronically Signed: Roel Ayoub MD at 16:49 EDT Reading Location ID and State: [address] [place] [address] Tel , Service support , Abdomen/Pelvis CT 11/26/21 15:38 IMPRESSION: Hepatomegaly with multiple masses visualized within the liver, this demonstrates no significant change in comparison to the prior study. Right lower lobe lung consolidation with small right pleural effusion demonstrates no change in comparison to the prior study. Improved aeration of the left lower lung rodriguez in comparison to the prior study. Moderate-sized hiatus hernia seen. Electronically Signed: Roel Ayoub MD at 16:19 EDT Reading Location ID and State: [address] [place] [address] Tel , Service support , Brain MRI 11/27/21 09:00 IMPRESSION: A 1.1 cm faintly circumferential enhancing lesion visualized in the right cerebellum suggestive of metastasis. Two lesions are visualized in the cortical guidewire in that demonstrate increased signal on DWI that could either represent a small metastasis or subtle lacunar infarcts measuring less than 0.4 cm. Electronically Signed: Roel Ayoub MD at 16:26 EDT Reading Location ID and State: [facility] / [place] Tel , Service support , Renal Ultrasound 11/28/21 07:57 IMPRESSION: Increased echogenicity of the right kidney suggestive of medical renal disease, no evidence of right renal masses or hydronephrosis. Left kidney is absent. Incidental note is made of multiple masses in the liver. . Electronically Signed: Roel Ayoub MD at 9:54 EDT , Chest X-Ray 11/29/21 10:55 IMPRESSION: No change in the appearance of the chest from reference exam. There is persistent right-sided effusion and right basilar airspace disease. Right-sided PICC line in good position. Electronically Signed: Param Robin MD at 11:16 EDT , Assessment & Plan Assessment/Plan (1) Small cell lung cancer: (2) Brain metastasis: (3) Pain, cancer: (4) Pleural metastasis: (5) Regional lymph node metastasis present: (6) Liver metastases: (7) GREG (acute kidney injury): (8) Hypoxemia: PLAN: Plan 71-year-old female ex-smoker with extensive metastatic small cell lung cancer, rapidly declining performance status and multisystem organ failure (acute on chronic renal failure in a patient with a single kidney, hypoxia, progressive hepatic insufficiency) and intractable cancer pain. She was tentatively scheduled to start systemic chemotherapy with carboplatin etoposide today December 02, 2021. Central venous access has been secured earlier. For kidney function has progressively worsened despite vigorous hydration, tumor lysis prophylaxis. She has a single kidney. Cause of kidney failure is probably multifactorial (defer to nephrology consult). Patient was seen and examined. Then I met with the patient's [id number] .impression and recommendation of hospice referral were discussed. Mark Jauregui MD Medical Psychotherapist, [facility] Divisions of Medical Oncology & Hematology Department of Internal Medicine [place] [id number] This note was generated using a voice recognition system software. Although it was reviewed by the author prior to finalization, it may still contain incorrect words, spelling, and punctuation that were not noted when reviewing prior to saving. If a clinically significant typo or inaccurately typed phrase is noted, please notify the author.
[2021-12-02 12:22] LABS: Pathologist Review Reviewed
--- NOTE | 2021-12-02 15:39 | CASEMGMT ---
Social Work Phone call to [facility] informing that pt would not be coming to their unit. MICHAEL Aguillon
--- NOTE | 2021-12-02 16:15 | DS.PCM_ITS ---
Providers Date of Admission: 12/02/21 Date of Discharge: 12/02/21 Primary Care Physician: Dr. Conner Daley MD Consultations 11/26/21 18:53 Consult: Table Games Floor Supervisor / Pulmonary Medicine Routine Consulting Provider: [facility] Reason for Consult: pneumonia EMERGENT Consult: No Notified: Yes Date Notified: 11/26/21 Time Notified: 17:44 Method of Notification: ED Physician Initiated Consult: Oncology/Hematology Routine Consulting Provider: [facility] ([facility]) Reason for Consult: small cell lung cancer EMERGENT Consult: No Notified: Yes Date Notified: 11/26/21 Time Notified: 17:45 Method of Notification: Text 11/29/21 07:24 Consult: Nephrology Routine Consulting Provider: Vikas Allen Reason for Consult: GREG EMERGENT Consult: No Notified: Yes Date Notified: 11/29/21 Time Notified: 07:24 Method of Notification: Verbal 12/02/21 10:15 Consult: Hospice / Palliative Care Routine Consulting Provider: [facility] Reason for Consult: lung cancer, mets EMERGENT Consult: No Notified: Yes Date Notified: 12/02/21 Time Notified: 10:15 Method of Notification: office called per SW Reason For Visit: pneumonia Diagnosis Discharge Diagnosis (1) Small cell lung cancer: Status: Acute Code(s): C34.90 - Malignant neoplasm of unspecified part of unspecified bronchus or lung (2) Brain metastasis: Status: Acute Code(s): C79.31 - Secondary malignant neoplasm of brain (3) Pain, cancer: Status: Acute Code(s): G89.3 - Neoplasm related pain (acute) (chronic) (4) Pleural metastasis: Status: Acute Code(s): C78.2 - Secondary malignant neoplasm of pleura (5) Regional lymph node metastasis present: Status: Acute Code(s): C77.9 - Secondary and unspecified malignant neoplasm of lymph node, unspecified (6) Liver metastases: Status: Acute Code(s): C78.7 - Secondary malignant neoplasm of liver and intrahepatic bile duct (7) GREG (acute kidney injury): Status: Acute Code(s): N17.9 - Acute kidney failure, unspecified (8) Hypoxemia: Status: Acute Code(s): R09.02 - Hypoxemia Medications at Discharge Home Medications acetaminophen 500 mg tablet 1,000 mg PO Q6H PRN Pain 11/20/21 alprazolam 0.5 mg tablet 0.5 tab PO TID PRN Anxiety 11/20/21 bisacodyl 5 mg tablet,delayed release (Dulcolax (bisacodyl)) 5 mg PO QHS PRN Constipation 11/20/21 diltiazem HCl 90 mg tablet 90 tab PO 4X/DAY heart rate 11/20/21 senna-docusate sodium tablet 2 tab PO DAILY CONSTIPATION 11/20/21 sertraline 100 mg tablet 100 tab PO DAILY MOOD 11/20/21 cetirizine 10 mg tablet 10 mg PO DAILY allergies 11/21/21 pantoprazole 40 mg tablet,delayed release 40 mg PO BID GERD 11/26/21 dexamethasone 4 mg tablet 4 mg PO DAILY #0 tabs 12/02/21 fentanyl 25 mcg/hr transdermal patch 25 mcg transdermal Q3D #0 ea 12/02/21 hydromorphone 0.5 mg/0.5 mL injection syringe 1 mg IV Q2H PRN PRN Pain Score 1- 10 #0 mL 12/02/21 lidocaine HCl 2 % mucosal solution (Lidocaine Viscous) 5 ml PO Q3H PRN mouth pain #0 mL 12/02/21 ondansetron HCl (PF) 4 mg/2 mL injection solution 4 mg (2 mL) IV Q8H PRN PRN NAUSEA/VOMITING #0 mL 12/02/21 peg [id number] 1 %-0.2 %-0.2 % eye drops (Artificial Tears ([id number])) 2 drp EACH EYE Q1H PRN PRN DRY EYES #0 mL 12/02/21 Hospital Course Operations - (Right IJ Mediport) Procedures Thoracentesis and - (Renal ultrasound/MRI brain) Summary of Care Provided Minutes Spent on Discharge: 39 Hospital Course: Mrs. Casper is a 71-year-old white female who was recently diagnosed with lung cancer after presenting to the emergency department with shortness of breath. At that time she was found to have a perihilar right-sided lung mass with extensive liver metastasis. She was treated at time for postobstructive pneumonia and discharged home with supplemental oxygen. Since that time she is had increased shortness of breath and a headache with worsening abdominal pain. She presented to the emergency department on 11/26/2021 for these reasons. In the emergency department she required 6 L nasal cannula to maintain appropriate oxygen saturations and imaging revealed a right-sided pleural effusion. Given her recent cancer diagnosis oncology was consulted as well as pulmonology. It was suspected the patient had a postobstructive pneumonia by pulmonary medicine and the patient was maintained on vancomycin and Zosyn it did appear that she had narrowing/occlusion of the right middle and lower lobe and it was not felt that bronchoscopy would be helpful at that time. Oncology evaluated the patient and recommend central venous access to be obtained for systemic therapy which was to tentatively be initiated on 12/02/2021. An MRI was performed with her headache and she was found to have at least 1 metastatic lesion in the posterior fossa. She was placed on Decadron for this. The case does discussed with radiation oncology with regards to her brain metastasis for brain radiation as well. Goal of medical oncology treatment was palliative plus minus survival benefit. General surgery was consulted on 11/28/2021 and a med port was placed on 11/29/2021. Nephrology was consulted on 11/29/2021 due to worsening creatinine. It appears that her baseline creatinine was 1.3 and her admitting creatinine was 1.7 however her serum creatinine trended up dramatically during her hospital course. Her urine sodium was less than 5 and it was felt that she likely had prerenal failure, however IVC compression from liver mets could not be excluded. She was initially treated with hydration however developed significant edema and her IV fluids were discontinued on 12/01/2021. Her LDH was more slightly elevated and she was placed on allopurinol as well as rasburicase in preparation for tumor lysis syndrome given her expectation of chemotherapy to be initiated on 12/02/2021. Unfortunately her serum creatinine worsened and was 4.78 on the day of discharge with a BUN of 70. She also developed an anion gap metabolic acidosis related to her renal failure with a anion gap of 16 and a worsening bicarb of 13 as well as a potassium of 5.2. An ABG was obtained and she was found to have a pH of 7.19 with a PCO2 of 31.8 and a PO2 of 84 on 6 L nasal cannula. I went and discussed her labs and the patient was in marked pain. I discussed the case with nephrology and they were going to discuss starting dialysis with her. She is adamantly against dialysis and requesting hospice management at this point. She met with oncology and they were in agreement and discussed the her case with her [id number]-day Sidra who is agreeable with her wishes. As stated above the patient was adamant that she wanted no further treatment and therefore hospice was consulted and her CODE STATUS was changed to DNR CC. She met with hospice on 12/02/2021 and it was felt that she would likely benefit from inpatient hospice services given her uncontrolled pain and she was discharged to inpatient hospice services on 12/02/2021. Pain was better controlled with changes made earlier in the day with regards to her pain medication. Discharge diagnoses: Metastatic small cell lung cancer GREG on CKD stage IIIa Anion gap metabolic acidosis secondary to GREG Uncontrolled pain Postobstructive pneumonia Hyperuricemia A. fib GERD Seasonal allergies Hyperlipidemia Hypertension History of tobacco abuse History of migraine headaches Physical Exam Narrative It was complaining of horrible pain and requesting be set up further. Her bed was already up as far as possible and she had multiple pillows behind her back. Nursing at the bedside awaiting more pillows to reposition her. Patient states she is done and does not want any further aggressive treatment. Is aware of recommendations for dialysis and states that its not negotiable Const alert and oriented x3 Constitutional Narrative: Older white female sitting up in bed, appears very uncomfortable, nontoxic however General Appearance: cooperative and well developed Orientation / Consciousness: awake, oriented to person, oriented to place and oriented to time Exam Limitations: no limitations HEENT normocephalic, head/scalp atraumatic, hearing grossly normal bilaterally and moist oral mucous membranes HEENT Narrative: Mallampati is 2, dentition is fair Eyes PERRL and EOMs intact bilaterally Eyes Narrative: Pale conjunctiva bilaterally, no scleral icterus Neck no lymphadenopathy, supple and no JVD Neck Narrative: Ecchymosis right neck from line placement, trachea midline, no thyroid e nlargement Resp normal respiratory effort, no retractions and no use of accessory muscles Resp Narrative: Diffusely diminished with scattered rhonchi, no current signs of respiratory distress, patient currently on 6 L nasal cannula Auscultation: rhonchi; Negative for crackles, rales or wheezes Cardio regular rate, S1 normal heart sound, S2 normal heart sound, no murmurs, no rub, no gallops, no clicks and no JVD; Negative for regular rhythm Cardio Narrative: Irregular irregular rhythm with rate control GI GI Narrative: Abdomen is distended and diffusely tender, bowel sounds are normal active, abdomen is soft Extremity no clubbing, cyanosis or edema Skin no rashes or lesions noted, no wounds, skin turgor normal and no jaundice Neuro oriented x3, CN's II-XII intact bilaterally, moves all extremities, no focal motor deficits and no sensory deficits noted Sensorium / Orientation: awake, alert, oriented to person, oriented to place and oriented to time Speech: speech normal Psych Psych Narrative: Patient appears markedly uncomfortable at this time Weight / BMI Weight Weight: 60.3 kg Body Mass Index (BMI) 25.1 ABG / Lab / Microbiology Data Result Diagrams: 12/02/21 06:05 12/02/21 06:05 Laboratory: Laboratory Results - last 24 hr 11/30/21 05:24: Diff Path Review Reviewed 12/02/21 06:05: WBC 15.4 H, RBC 2.69 L, Hgb 7.4 L, Hct 24.0 L, MCV 89.2, MCH 27.5, MCHC 30.8 L, RDW Std Deviation 54.0 H, RDW Coeff of Flaco 16.6 H, Plt Count 276, MPV 9.7, Immature Gran % (Auto) 5.000 H, Neut % (Auto) 84.5 H, Lymph % (Auto) 2.1 L, [place] % (Auto) 8.3, Eos % (Auto) 0.0, Baso % (Auto) 0.1, Absolute Neuts (auto) 13.0 H, Absolute Lymphs (auto) 0.33 L, Nucleated RBC % 1.4, Anisocytosis 1+ 12/02/21 06:05: Sodium 131 L, Potassium 5.0, Chloride 101, Carbon Dioxide 14.0 L , Anion Gap 16 H, BUN 63 H, Creatinine 4.34 H, Estim Creat Clear Calc 8.97, Est GFR (MDRD) Af Amer 13 L, Est GFR (MDRD) Non-Af 11 L, BUN/Creatinine Ratio 14.5, Glucose 98, Uric Acid 9.8 H, Calcium 8.3 L, Total Bilirubin 1.20 H, AST 381 H, ALT 151 H, Alkaline Phosphatase 374 H, Total Protein 5.8 L, Albumin 2.3 L, Globulin 3.5, Albumin/Globulin Ratio 0.7 L 12/02/21 06:05: Lactate Dehydrogenase 2858 H Microbiology: Microbiology 11/27/21 00:03 Urine, Clean Catch Streptococcus pneumoniae Antigen (M - Final ABG: ABG 12/02/21 07:59 Specimen Type ART Sample Site L Radial pH 7.19 L* Bicarbonate Actual 12.2 L Total CO2 13 Base Excess -16 L O2 Saturation 94 L ABG pCO2 31.8 L ABG pO2 84 Abram Test Positive O2 Delivery Device Cannula Liter Flow 8.0 Crit Call To/Read Back Yes Blood Gas Notified Whom basia D/C Instructions Discharge Diet: Light diet - advance as tolerated May shower in (days): 5 (Keep port site clean and dry x5 days. Neck incision okay to get wet after 1 day. Okay to lower shower and upper sponge bath. OR okay to taper off port site with a Ziploc bag to shower) Call your doctor if your incision/area has: Continuous Slow Oozing, Sudden Inc reased Bleeding, Increased Pain/ Swelling, Increased Redness, Foul Smelling Discharge and Swelling at the incision site Call your doctor if you observe: Fever of 101 or Higher Please Follow Up With: Catie Jefferson MD When: In 10 days for permanent suture removal?call office for appointment Meaningful Use Info Meaningful Use Diagnoses (Choose all that apply): None applicable Discharge Plan Admission Admit Date/Time: 12/02/21 07:02 Primary Reason for Your Visit: Shortness of Breath and abdominal pain Attending Provider: Iraida Galo Primary Care Provider: Conner Daley Consulting Providers: Gato Stewart ; Sanjiv Laird ; Purnima Albert QA TECH ; Conner Marquez ; Marcello Carter ; Mark Jauregui ; Gamal Ashton ; Abhilash Angel ; Ilya Coyne ; Zachery Farley ; Olga Long QA TECH ; Vikas Allen ; Junito Saleem ; Alicia Vidal ; Conner Aly ; Lois Sanderson ; Daxa Morales ; Tiffanie Carrasco QA TECH Discharge Orders/Prescriptions Prescriptions: New dexamethasone 4 mg Tablet 4 mg PO DAILY Qty: 0 0RF fentanyl 25 mcg/hr Patch 72 Hour 25 mcg transdermal Q3D Qty: 0 0RF hydromorphone 0.5 mg/0.5 mL Syringe 1 mg IV Q2H PRN PRN (Reason: Pain Score 1-10) Qty: 0 0RF lidocaine HCl [Lidocaine Viscous] 2 % Solution 5 ml PO Q3H PRN (Reason: mouth pain) Qty: 0 0RF Artificial Tears([id number]) 1-0.2-0.2 % Drops 2 drp EACH EYE Q1H PRN PRN (Reason: DRY EYES) Qty: 0 0RF ondansetron HCl (PF) 4 mg/2 mL Solution 4 mg IV Q8H PRN PRN (Reason: NAUSEA/VOMITING) Qty: 0 0RF Continued sertraline 100 mg tablet 100 tab PO DAILY Label Comments: TAKE 1 TABLET BY MOUTH EVERY DAY acetaminophen 500 mg Tablet 1,000 mg PO Q6H PRN (Reason: Pain) alprazolam 0.5 mg tablet 0.5 tab PO TID PRN (Reason: Anxiety) Label Comments: TAKE 0.5 - 1 TABLET BY ORAL ROUTE 3 TIMES EVERY DAY NEEDED bisacodyl [Dulcolax (bisacodyl)] 5 mg Tablet,Delayed Release (Dr/Ec) 5 mg PO QHS PRN (Reason: Constipation) diltiazem HCl 90 mg tablet 90 tab PO 4X/DAY Label Comments: TAKE 1 TABLET BY MOUTH FOUR TIMES A DAY senna-docusate sodium Tablet 2 tab PO DAILY cetirizine 10 mg Tablet 10 mg PO DAILY pantoprazole 40 mg tablet,delayed release (DR/EC) 40 mg PO BID Rx Instructions: Take twice daily for 4 weeks then 40 mg daily Discontinued atorvastatin 10 mg tablet 10 tab PO DAILY Label Comments: TAKE 1 TABLET BY MOUTH EVERY DAY furosemide 20 mg tablet 20 tab PO DAILY PRN (Reason: Edema) Label Comments: TAKE 1 TABLET BY MOUTH EVERY DAY NEEDED FOR SWELLING Rx Instructions: daily as needed prn for swelling magnesium 250 mg Tablet 250 mg PO DAILY cholecalciferol (vitamin D3) 125 mcg (5,000 unit) Tablet 125 mcg PO DAILY Rx Instructions: Thursday AND THURSDAY levofloxacin 750 mg tablet 750 mg PO Q48H Qty: 3 0RF oxycodone 5 mg capsule 5 mg PO Q4H PRN (Reason: pain) 4 Days Qty: 20 0RF aspirin 81 mg tablet,chewable 81 mg PO BREAKFAST metoprolol tartrate 25 mg tablet 12.5 mg PO BID Referrals / Follow Up: Conner Daley MD [Primary Care Provider] - Olga Long QA TECH, QA TECH-C [Med Staff - Adv Practice Prof] - Disposition Disposition (needs filled in before D/C Order can be placed): Hospice in Medical Facility Charges/Coding Visit Charges Inpatient E&M: 15471 Disch Hosp
[2021-12-02 16:30] LABS: Anion Gap 16 (5-15); BUN 70 mg/dL (7-18); BUN/Creat Ratio 14.6 RATIO (10-20); Calcium,Total 8.6 mg/dL (8.5-10.1); Chloride 103 mmol/L (98-107); Creatinine, Serum 4.78 mg/dL (0.55-1.02); EST Glomerular Filtration Rate 10 mL/min (>60); Est Glom Filt Rate - Afr Amer 12 mL/min (>60); Estimated Creatinine Clearance 8.15 ml/min; Glucose 103 mg/dL (74-106); Potassium 5.2 mmol/L (3.5-5.1); Sodium Level 132 mmol/L (136-145)
== END 2021-12-02 16:40 | disposition hospice, inpatient (51) | DRG 180 ==
LOC: ED 17:10 → MS3 17:52
PROVIDERS: Anesthesiology; Internal Medicine; Nurse Practitioner Family; Surgery; Emergency Provider Emergency Medicine; PCP Family Medicine; Visit Provider Internal Medicine
PROC: 02HV33Z Insertion of Infusion Device into Superior Vena Cava, Percutaneous Approach (ICD-10-PCS; principal; 2021-11-29 09:45)
DX: C34.91 Malignant neoplasm of unspecified part of right bronchus or lung (principal); J96.21 Acute and chronic respiratory failure with hypoxia; E88.3 Tumor lysis syndrome; J18.9 Pneumonia, unspecified organism; C78.2 Secondary malignant neoplasm of pleura; C77.1 Secondary and unspecified malignant neoplasm of intrathoracic lymph nodes; I13.0 Hypertensive heart and chronic kidney disease with heart failure and stage 1 through stage 4 chronic kidney disease, or unspecified chronic kidney disease; E87.2 Acidosis; N17.9 Acute kidney failure, unspecified; J44.0 Chronic obstructive pulmonary disease with (acute) lower respiratory infection; C78.7 Secondary malignant neoplasm of liver and intrahepatic bile duct; C79.31 Secondary malignant neoplasm of brain; J98.11 Atelectasis; J90 Pleural effusion, not elsewhere classified; Q60.0 Renal agenesis, unilateral; R18.8 Other ascites; I50.9 Heart failure, unspecified; N18.32 Chronic kidney disease, stage 3b; I48.0 Paroxysmal atrial fibrillation; C76.2 Malignant neoplasm of abdomen; E78.5 Hyperlipidemia, unspecified; K21.9 Gastro-esophageal reflux disease without esophagitis; R14.0 Abdominal distension (gaseous); K80.20 Calculus of gallbladder without cholecystitis without obstruction; J30.2 Other seasonal allergic rhinitis; K59.00 Constipation, unspecified; Z87.891 Personal history of nicotine dependence; Z51.5 Encounter for palliative care; F32.A Depression, unspecified; Z79.82 Long term (current) use of aspirin; G89.3 Neoplasm related pain (acute) (chronic); N14.1 Nephropathy induced by other drugs, medicaments and biological substances; Z95.828 Presence of other vascular implants and grafts
CPT/HCPCS: 36415; 36600; 70553; 71045; 71046; 74176; 76604; 76705; 76770; 77001; 80048; 80053; 80076; 80202; 81001; 82570; 82803; 83615; 84300; 84484; 84550; 85025; 85610; 85730; 87449; 93005; 94640; 94667; 94668; 94762; 99251; 99285; A9575; J7030; A4216; G0463; J2405; J2783; J3490